=== PATIENT | female | born 1945 | race Caucasian/White ===

== ENCOUNTER 2017-09-01 13:42 | Outpatient (CLI) | payer MEDICARE, OTHER ==
--- NOTE | 2017-09-01 15:50 | XRAY Report ---
THREE VIEW BILATERAL HANDS: 09/01/2017 CLINICAL INDICATION: Bilateral hand numbness, osteoarthritis. FINDINGS: AP, lateral, and oblique views of the bilateral hands demonstrate mild osteoarthritic changes in the first carpometacarpal joints and interphalangeal joints. There is no evidence of acute fracture or dislocation. No radiopaque foreign body is seen in the soft tissues. IMPRESSION: MILD BILATERAL OSTEOARTHRITIS. TD: 09/01/2017 15:49
== END 2017-09-01 13:43 | disposition home or self-care (01) ==
LOC: DI.N 13:42
PROVIDERS: ATTEND Internal Medicine
DX: M19.042 Primary osteoarthritis, left hand (principal); M19.041 Primary osteoarthritis, right hand

== ENCOUNTER 2018-01-01 12:38 | Outpatient (CLI) | payer MEDICARE, OTHER ==
--- NOTE | 2018-01-03 05:14 | MRI Report ---
Procedure Date: 01/01/2018 Accession Number: [id number] / [id number] Procedure: MRI - Angio Brain W/O (MRA) CPT Code: FULL RESULT: EXAM MRA BRAIN EXAM DATE: 01/01/2018 01:11 PM. CLINICAL HISTORY: Peripheral vasculitis COMPARISON: None. TECHNIQUE: Multiplanar, multisequence MRA sequences of the brain were performed. Other: None. Post-processing: Multiplanar 3D MIP reconstructions. IV Contrast: None. FINDINGS: RIGHT Internal Carotid (ICA): Mild narrowing of right ophthalmic ICA segment. Otherwise unremarkable. Middle Cerebral (MCA): No aneurysm, stenosis or anomaly. Anterior Cerebral (ARACELI): Hypoplastic right A1 ARACELI segment. No aneurysm, stenosis or anomaly. Posterior Cerebral (AIR CONDITIONING INSULATION INSTALLER): No aneurysm, stenosis or anomaly. Posterior Communicating (P-COM): No aneurysm, stenosis or anomaly. Vertebral: No aneurysm, stenosis or anomaly in the visualized upper vertebral artery. LEFT Internal Carotid (ICA): Two bands of mild narrowing of the left cavernous ICA segment. Otherwise unremarkable. Middle Cerebral (MCA): No aneurysm, stenosis or anomaly. Anterior Cerebral (ARACELI): No aneurysm, stenosis or anomaly. Posterior Cerebral (AIR CONDITIONING INSULATION INSTALLER): No aneurysm, stenosis or anomaly. Posterior Communicating (P-COM): Not visualized. Vertebral: No aneurysm, stenosis or anomaly in the visualized upper vertebral artery. MIDLINE Anterior Communicating (A-COM): No aneurysm, stenosis or anomaly. Basilar Artery:No aneurysm, stenosis or anomaly. Other: None. IMPRESSION: 1. Mild narrowing of bilateral distal internal carotid arteries most likely representing atherosclerotic disease. No stenoses characteristic of vasculitis. No aneurysm. RADIA
== END 2018-01-01 12:39 | disposition home or self-care (01) ==
LOC: DI 12:38
PROVIDERS: ATTEND Psychiatry & Neurology Neurology
DX: I65.23 Occlusion and stenosis of bilateral carotid arteries (principal); H53.8 Other visual disturbances; M54.2 Cervicalgia; R51 Headache
CPT/HCPCS: 70544; 70551

== ENCOUNTER 2018-02-03 08:00 | Outpatient (CLI) | payer MEDICARE, OTHER | END 2018-02-03 08:01 | disposition home or self-care (01) | LOC: LAB.R 08:00 | PROVIDERS: ATTEND Internal Medicine | DX: R19.7 Diarrhea, unspecified (principal) | CPT/HCPCS: 81599; 82705; 83630; 87045; 87046; 87493 ==

== ENCOUNTER 2018-03-11 08:31 | Outpatient (CLI) | payer MEDICARE, OTHER ==
--- NOTE | 2018-04-04 13:23 | Mammography Report ---
Reason: ROUTINE MAMMO Procedure Date: 03/11/2018 Accession Number: [id number] / [id number] Procedure: MGN - Screening Mammo Dig Bilat CPT Code: FULL RESULT: EXAM: Screening Mammo Dig Bilat DATE: 03/11/2018 9:20 AM CLINICAL HISTORY: 72-year-old female with history of bilateral breast biopsies with benign results presents for screening mammogram TECHNIQUE: Bilateral CC and MLO views were obtained. COMPARISON: None are available at the time of interpretation. FINDINGS: The breasts demonstrate heterogeneously dense fibroglandular parenchyma bilaterally. Bilateral typically benign vascular calcifications and typically benign coarse calcifications are seen. No suspicious masses, clustered microcalcifications, or regions of architectural distortion are identified. IMPRESSION: Benign findings RECOMMENDATION: Routine annual screening unless otherwise clinically indicated. BIRADS CATEGORY 2: Benign findings STANDARD QUALIFYING STATEMENTS: 1. This examination was reviewed with the aid of Computer-Aided Detection (CAD). 2. A negative or benign imaging report should not delay biopsy if clinically suspicious findings are present. Consider surgical consultation if warrented. More than 5% of cancers are not identified by imaging. 3. Dense breasts may obscure an underlying neoplasm.
== END 2018-03-11 08:32 | disposition home or self-care (01) ==
LOC: DI.N 08:31
PROVIDERS: ATTEND Radiology Diagnostic Radiology
DX: Z12.31 Encounter for screening mammogram for malignant neoplasm of breast (principal)
CPT/HCPCS: 77067

== ENCOUNTER 2018-04-07 08:00 | Outpatient (CLI) | payer MEDICARE, OTHER ==
[2018-04-07 19:06] LABS: CREATININE 1.1 mg/dL (0.4-1.0)
== END 2018-04-07 08:01 ==
LOC: LAB.N 08:00
PROVIDERS: ATTEND Internal Medicine Gastroenterology
DX: K86.2 Cyst of pancreas (principal)
CPT/HCPCS: 36415; 82565; 84520

== ENCOUNTER 2018-04-12 18:04 | Emergency (ER) | payer MEDICARE, OTHER ==
--- NOTE | 2018-04-12 18:57 | XRAY Report ---
Reason: squeeze injury, sternum,rib, and back pain Procedure Date: 04/12/2018 Accession Number: [id number] / [id number] Procedure: XR - Chest 2 View X-Ray CPT Code: 99398 FULL RESULT: EXAM: CHEST RADIOGRAPHY EXAM DATE: 04/12/2018 06:33 PM. CLINICAL HISTORY: Squeeze injury, sternum,rib, and back pain. COMPARISON: None. TECHNIQUE: 2 views. FINDINGS: Lungs/Pleura: No focal opacities evident. No pleural effusion. No pneumothorax. Normal volumes. Mediastinum: Heart and mediastinal contours are unremarkable. Other: No fracture identified on chest radiograph. IMPRESSION: Negative. RADIA
--- NOTE | 2018-04-12 20:14 | ED Physician Documentation ---
PD HPI TRUNK INJURY - Stated complaint Stated Complaint: CHEST INJ - Chief complaint Chief Complaint: Trauma Ch/Bk - History obtained from History obtained from: Patient - History of Present Illness Location: Center chest Type of injury: Other (family member gave her a big, firm "amy hug" and she felt a pop and pain in sternal area. Has had persistent pain since then and has worsened today.) Timing - onset: How many days ago (3) Timing - duration: Days Timing - details: Abrupt onset, Still present (worse today) Quality: Pain Worsened by: Moving, Other (deep breathing). No: Palpating Associated symtptoms: No: Weakness, Numbness, Feel faint, Syncope Contributing factors: No: Anticoagulated Where injury occured: Home Similar symptoms before: Has not had sx before Recently seen: Not recently seen Review of Systems Constitutional: denies: Fever, Chills Nose: denies: Rhinorrhea / runny nose, Congestion Throat: denies: Sore throat Cardiac: reports: Chest pain / pressure. 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 HEENT: Cataracts, Other - Present Medications Home Medications: Ambulatory Orders Medication Instructions Recorded Confirmed Atenolol 1 tab PO DAILY 04/12/18 04/12/18 Duloxetine HCl 1 cap PO DAILY 04/12/18 04/12/18 Estrogens, Conjugated [Premarin] 0.45 mg PO DAILY 04/12/18 04/12/18 HYDROcod/ACETAM 5/325 [Omar 5/325] 1 tab PO Q6H PRN #15 tablet 04/12/18 Metformin HCl 1 tab PO BID 04/12/18 04/12/18 Naproxen 375 mg PO BID #20 tablet 04/12/18 Omeprazole 1 cap PO DAILY 04/12/18 04/12/18 - Allergies Allergies/Adverse Reactions: Allergies Allergy/AdvReac Type Severity Reaction Status Date / Time gabapentin Allergy Rash Verified 04/12/18 18:12 Iodinated Contrast- Oral and Allergy Anaphylaxis Verified 04/12/18 18:12 IV Dye - Social History Does the pt smoke?: No Smoking Status: Never smoker Does the pt drink ETOH?: Yes ETOH Use: Beer Does the pt have substance abuse?: No - Immunizations Immunizations are current?: Yes - POLST Patient has POLST: No PD ED PE NORMAL - Vitals Vital signs reviewed: Yes - General General: Alert and oriented X 3, No acute distress, Well developed/nourished - Neck Neck: Supple, no meningeal sign, No adenopathy - Cardiac Cardiac: RRR, No murmur - Respiratory Respiratory: Clear bilaterally, Other (some chest wall tenderness left parasternal area without crepitance nor deformity) - Abdomen Abdomen: Soft, Non tender - Back Back: No spinal TTP - Derm Derm: Normal color, Warm and dry - Extremities Extremities: No deformity, No tenderness to palpate, Normal ROM s pain, No edema, No calf tenderness / cord - Neuro Neuro: Alert and oriented X 3, No motor deficit, Normal speech Results - Vitals Vitals: Oxygen O2 Source Room air - Labs Labs: Laboratory Tests 04/12/18 20:48 POC Whole Bld Glucose 152 H - Rads (name of study) chest xray Radiology: Prelim report reviewed (normal) chest CT Radiology: Prelim report reviewed (no acute process/ injury) PD MEDICAL DECISION MAKING - ED course Complexity details: reviewed results (triage CXR done and was normal, but would not be sensitive enough for sternal area injuryies, so talked with patient and opted for CT scan to ensure no worse process. Allergy to dye so done without contrast, but should still show the processes, particularly osseous. ), re- evaluated patient, considered differential, d/w patient - Sepsis Event Vital Signs: Oxygen O2 Source Room air Departure - Departure Disposition: 01 Home, Self Care Clinical Impression: Contusion of chest wall Qualifiers: Encounter type: initial encounter Laterality: unspecified laterality Qualified Code(s): S20.219A - Contusion of unspecified front wall of thorax, initial encounter Condition: Stable Record reviewed to determine appropriate education?: Yes Instructions: ED Contusion Chest Wall Follow-Up: KASEY DÍAZ MD [Primary Care Provider] - Prescriptions: HYDROcod/ACETAM 5/325 [Omar 5/325] 1 tab PO Q6H PRN #15 tablet PRN Reason: Pain Naproxen 375 mg PO BID #20 tablet Comments: No obvious fractures nor internal injuries on the CT scan. Presume there was some strain or injury to the cartilage that connects the sternum to the ribs. This will likely improve over the next several days to week. Consider using any anti-inflammatories such as naproxen or ibuprofen twice daily and add Tylenol or hydrocodone if needed for pain. Recheck if not improved over the next several days to week. Discharge Date/Time: 04/12/18 22:44
[2018-04-12] MEDS ORDERED: NAPROXEN 250 MG TABLET PO STA (20:39)
[2018-04-12] MEDS ORDERED: HYDROcod/ACETAM 5/325 MG TABLET PO STA (20:39)
--- NOTE | 2018-04-12 21:35 | CT Report ---
Reason: bear hug and pain in sternal area Procedure Date: 04/12/2018 Accession Number: [id number] / [id number] Procedure: CT - Chest W/O CPT Code: FULL RESULT: EXAM: CT CHEST EXAM DATE: 04/12/2018 09:13 PM. CLINICAL HISTORY: Bear hug and pain in sternal area. COMPARISONS: None. TECHNIQUE: Routine helical CT imaging was performed through the chest. IV contrast: None. Reconstructions: Coronal and sagittal. In accordance with CT protocol optimization, one or more of the following dose reduction techniques were utilized for this exam: automated exposure control, adjustment of mA and/or KV based on patient size, or use of iterative reconstructive technique. FINDINGS: Lungs/Pleura: No nodules, bronchial thickening, consolidation, or edema. Pulmonary vasculature is normal. No pericardial or pleural effusion. No pneumothorax. Mediastinum: Normal. No adenopathy or masses. The heart and great vessels are normal. Bones: Old mild wedging mid third of the mildly kyphotic thoracic spine. Trabecular and cortical patterns are intact. Unremarkable. Visualized Abdomen: Unremarkable. Other: None. IMPRESSION: Normal chest CT. RADIA
[2018-04-12] MEDS ORDERED: HYDROcod/ACET 5/325 Prepack 4 PO STA (22:31)
[2018-04-12 22:44] VITALS: BP 136/70
== END 2018-04-12 22:44 | disposition home or self-care (01) ==
LOC: ED 18:04
DX: S20.219A Contusion of unspecified front wall of thorax, initial encounter (principal); X58.XXXA Exposure to other specified factors, initial encounter; Y93.89 Activity, other specified; E11.9 Type 2 diabetes mellitus without complications; Z79.84 Long term (current) use of oral hypoglycemic drugs
CPT/HCPCS: 71046; 71250; 99283; 99284; A9270

== ENCOUNTER 2018-08-11 13:46 | Outpatient (CLI) | payer MEDICARE, OTHER | END 2018-08-11 13:47 | disposition home or self-care (01) | LOC: EMS 13:46 | PROVIDERS: ATTEND Surgery | DX: R07.9 Chest pain, unspecified (principal); R10.9 Unspecified abdominal pain; R06.00 Dyspnea, unspecified | CPT/HCPCS: A0425; A0427 ==

== ENCOUNTER 2018-11-26 20:42 | Outpatient (CLI) | payer MEDICARE, OTHER | END 2018-11-26 20:43 | disposition short-term general hospital (02) | LOC: EMS 20:42 | PROVIDERS: ATTEND Surgery | DX: R00.2 Palpitations (principal) | CPT/HCPCS: A0425; A0427; A0888 ==

== ENCOUNTER 2018-11-29 08:35 | Outpatient (CLI) | payer MEDICARE, OTHER ==
--- NOTE | 2018-11-29 10:57 | Ultrasound Report ---
Reason: CHRONIC RLQ PAIN Procedure Date: 11/29/2018 Accession Number: [id number] / [id number] Procedure: US - Abdomen Limited CPT Code: FULL RESULT: EXAM: ABDOMEN ULTRASOUND LIMITED, RUQ EXAM DATE: 11/29/2018 09:38 AM. CLINICAL HISTORY: Chronic right lower quadrant pain. COMPARISON: None. TECHNIQUE: Real-time scanning was performed with static images obtained. FINDINGS: Liver: Normal in size and echotexture. 13.7 cm. Main portal vein flow: Hepatopetal. Gallbladder: Normal. No stones, wall thickening, or sonographic Walker's sign. Biliary System: CBD measures 7 mm. No intrahepatic or extrahepatic ductal dilatation. Other: Survey of the right kidney shows normal appearance. IMPRESSION: Normal. No cholelithiasis or cholecystitis. RADIA
== END 2018-11-29 08:36 | disposition home or self-care (01) ==
LOC: DI 08:35
PROVIDERS: ATTEND Internal Medicine
DX: R10.31 Right lower quadrant pain (principal); G89.29 Other chronic pain
CPT/HCPCS: 76705

== ENCOUNTER 2018-12-22 12:51 | Outpatient (CLI) | payer MEDICARE, OTHER ==
--- NOTE | 2018-12-23 09:37 | DEXA Report ---
Reason: POSTMENOPAUSAL Procedure Date: 12/22/2018 Accession Number: [id number] / [id number] Procedure: DEX - Dexa Spine and/or Hip CPT Code: FULL RESULT: EXAM: Dexa Spine and/or Hip DATE: 12/22/2018 1:27 PM CLINICAL HISTORY: POSTMENOPAUSAL TECHNIQUE: Dual energy x-ray absorptiometry (DXA) was performed on a [employer]ering [employer] System. Regions measured are the AP Spine, femoral neck, and if needed forearm. COMPARISON: None. In accordance with the International Society for Clinical Densitometry (ISCD) guidelines, data from previous exams may be reanalyzed using current recommendations and techniques. This is done to allow a more accurate basis for comparison with the current study. FINDINGS: The data for the lumbar spine is as follows: BMD (g/cm/cm) T-SCORE Z-SCORE REGION L1 0.972 -1.3 0.6 L2 0.995 -1.7 0.2 L3 1.029 -1.4 0.5 L4 1.161 -0.3 1.6 TOTAL 1.046 -1.1 0.8 NOTE: All evaluable vertebrae are used for classification The data for the hip is as follows: BMD (g/cm/cm) T-SCORE Z-SCORE REGION Neck 0.957 -0.6 1.3 TOTAL 0.858 -1.2 0.5 NOTE: The femoral neck or total proximal femur, whichever is lowest, is used for classification. IMPRESSION: THE WHO CLASSIFICATION BASED ON THE INTERNATIONAL REFERENCE STANDARD IS OSTEOPENIA. THE FRACTURE RISK IS INCREASED. RECOMMENDATION: Patients with diagnosis of osteoporosis or osteopenia should have regular bone mineral density assessment. For those eligible for Medicare, routine testing is allowed once every 2 years. Testing frequency can be increased for patients who have rapidly progressing disease or for those who are receiving medical therapy to restore bone mass. COMMENT: World Health Organization (WHO) definitions for osteoporosis and osteopenia: NORMAL BMD: T-score at -1.0 or higher, fracture risk is low OSTEOPENIA BMD: T-score between -1.0 and -2.5, fracture risk is increased. OSTEOPOROSIS BMD: T-score at -2.5 or lower, fracture risk is high. National Osteoporosis Foundation recommends: 1. Obtain adequate dietary calcium (at least 1200 mg per day) and vitamin D (400-800 international units per day). 2. Participate, as appropriate, in regular weightbearing and muscle-strengthening exercise. 3. Avoid tobacco use and reduce alcohol and caffeine intake. 4. For more detailed information see the website at www.NOF.org.
== END 2018-12-22 12:52 | disposition home or self-care (01) ==
LOC: DI 12:51
PROVIDERS: ATTEND Internal Medicine
DX: M85.89 Other specified disorders of bone density and structure, multiple sites (principal)
CPT/HCPCS: 77080

== ENCOUNTER 2019-03-09 10:12 | Outpatient (CLI) | payer MEDICARE, OTHER ==
--- NOTE | 2019-03-09 12:13 | Mammography Report ---
Reason: RIGHT SIDED BREAST AND AXILLA PAIN Procedure Date: 03/09/2019 Accession Number: [id number] / [id number] Procedure: GENE - Diagnostic Dig Bilat CPT Code: FULL RESULT: EXAM: Diagnostic Dig Bilat DATE: 03/09/2019 11:10 AM CLINICAL HISTORY: Focal right breast pain lateral breast as well as the axillary tail. No reported personal or family history of breast cancer. TECHNIQUE: (B) - Bilateral CC and MLO views were obtained. Additional right 90 degree lateral 2-D/3-D. CC and ML Cone magnification right side. Targeted real-time ultrasound sites of pain right breast. COMPARISON: 03/11/2018. PARENCHYMAL PATTERN: (D) - The breasts demonstrate heterogeneously dense fibroglandular parenchyma bilaterally. FINDINGS: Right breast: No mammographic findings of concern at sites of focal pain marked with skin markers along the lateral mid breast and axillary tail. 3 cm grouping of mixed punctate and amorphous and mildly pleomorphic calcifications in the 11:30 o'clock breast 7 cm from the nipple. No suspicious masses or areas of distortion. Targeted ultrasound at sites of patient's symptoms are performed in wide areas at each site. Only normal tissues are noted. 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 Left breast: There are no suspicious masses, calcifications, or areas of distortion. IMPRESSION: Right breast: 1. No imaging findings of concern at sites of focal pain per patient. Negative. Clinical follow-up for symptoms recommended. 2. 3 cm grouping of indeterminate morphology calcifications in the 11:30 o'clock breast. Suspicious findings. BI-RADS category 4. Stereotactic breast biopsy with marker placement is recommended. Biopsy scheduling was facilitated the time of this imaging appointment. Left breast: Negative. BI-RADS Category 1. Recommend annual screening mammography. RECOMMENDATION: (BIOPSY) - right breast BI-RADS CATEGORY: (4) - Suspicious. STANDARD QUALIFYING STATEMENTS: 1. This examination was not reviewed with the aid of Computer-Aided Detection (CAD). 2. A negative or benign imaging report should not preclude biopsy if clinically suspicious findings are present. 3. Dense breasts may obscure an underlying neoplasm. 4. This examination was reviewed with the aid of 3D breast imaging (tomosynthesis).
== END 2019-03-09 10:13 | disposition home or self-care (01) ==
LOC: DI 10:12
PROVIDERS: ATTEND Family Medicine
DX: N64.4 Mastodynia (principal); M79.621 Pain in right upper arm; R06.02 Shortness of breath
CPT/HCPCS: 71046; 76642; 77066

== ENCOUNTER 2019-03-09 10:13 | Outpatient (CLI) | payer MEDICARE, OTHER ==
--- NOTE | 2019-03-10 12:38 | XRAY Report ---
Reason: SHORTNESS OF BREATH Procedure Date: 03/09/2019 Accession Number: [id number] / [id number] Procedure: XR - Chest 2 View X-Ray CPT Code: 54425 FULL RESULT: EXAM: CHEST RADIOGRAPHY EXAM DATE: 03/09/2019 10:28 AM. CLINICAL HISTORY: Persistent shortness of breath for 2 months. COMPARISON: CHEST 2 VIEW 04/12/2018 6:21 PM. TECHNIQUE: 2 views. FINDINGS: Lungs/Pleura: No focal opacities evident. No pleural effusion. No pneumothorax. Normal volumes. Mediastinum: Heart and mediastinal contours are unremarkable. Other: Stable thoracic dextrocurvature and rotatory lumbar levocurvature. Stable degenerative changes in the spine and shoulders. IMPRESSION: 1. No radiographic evidence of acute cardiopulmonary disease. 2. Other stable chronic degenerative changes. RADIA
== END 2019-03-09 10:14 | disposition home or self-care (01) ==
LOC: DI 10:13
PROVIDERS: ATTEND Family Medicine
DX: R06.02 Shortness of breath (principal)
CPT/HCPCS: 71046

== ENCOUNTER 2019-03-17 09:22 | Outpatient (CLI) | payer MEDICARE, OTHER ==
[2019-03-17] MEDS ORDERED: BUPIVACAINE 0.5%-EPI 1:200000 PF 10 ML VIAL ONE (09:41)
[2019-03-17] MEDS ORDERED: BUFFERED LIDOCAINE 10 ML SYRINGE ONE (09:41)
[2019-03-17] MEDS ORDERED: BUFFERED LIDOCAINE 10 ML SYRINGE IU ONE (11:12)
--- NOTE | 2019-03-17 13:32 | Mammography Report ---
Reason: ABN MAMMO - RT BREAST CALCS Procedure Date: 03/17/2019 Accession Number: [id number] / [id number] Procedure: GENE - Stereotactic Core BX RT CPT Code: FULL RESULT: EXAM: Stereotactic Core BX RT DATE: 03/17/2019 11:04 AM CLINICAL HISTORY: ABN MAMMO - RT BREAST CALCS COMPARISON: 03/09/2019 10/09/2017. CLINICAL DATA: Target right breast grouping of calcification measuring up to 3 cm in the 11 o'clock axis of the right breast. Informed consent was obtained. The patient was positioned in the mammography machine with biopsy attachment. Targeting imaging was obtained and the lesion was selected. The breast was approached from the cranial aspect. Using standard aseptic technique, 1% buffered lidocaine was injected into the breasts for local anesthesia. A small wilmar was made in the skin with a #11 blade. A 9-gauge vacuum-assisted device was advanced into the breasts towards the target and confirmatory imaging was obtained to verify targeting and 12 specimens were obtained. Specimen radiography was performed which demonstrated the presence of calcifications in the sample. A biopsy marker clip was then placed into the biopsy cavity. The biopsy device was subsequently removed from the breast. Hemostasis was achieved. Follow-up mammography was then performed to verify biopsy targeting and clip placement. The mammography showed good clip placement . The wound was dressed and ice applied. The patient was observed for approximately 15 minutes, then discharged from the diagnostic imaging Department in stable condition following instructions on wound care and obtaining biopsy results. The tissue was sent for histologic analysis. IMPRESSION: Stereotactic right breast biopsy. RADIA
== END 2019-03-17 09:23 | disposition home or self-care (01) ==
LOC: DI 09:22
PROVIDERS: ATTEND Family Medicine
DX: R92.0 Mammographic microcalcification found on diagnostic imaging of breast (principal); N60.11 Diffuse cystic mastopathy of right breast
CPT/HCPCS: 19081

== ENCOUNTER 2019-04-11 13:32 | Outpatient (CLI) | payer MEDICARE, OTHER | END 2019-04-11 13:33 | disposition short-term general hospital (02) | LOC: EMS 13:32 | PROVIDERS: ATTEND Surgery | DX: R07.89 Other chest pain (principal); R06.00 Dyspnea, unspecified | CPT/HCPCS: A0425; A0427 ==

== ENCOUNTER 2019-04-14 23:33 | Outpatient (CLI) | payer MEDICARE, OTHER | END 2019-04-14 23:34 | disposition short-term general hospital (02) | LOC: EMS 23:33 | PROVIDERS: ATTEND Surgery | DX: R07.89 Other chest pain (principal) | CPT/HCPCS: A0425; A0427 ==

== ENCOUNTER 2019-05-04 08:00 | Outpatient (CLI) | payer MEDICARE, OTHER ==
[2019-05-04 19:18] LABS: HGB - HEMOGLOBIN 11.3 g/dL (12.0-16.0); MEAN CORPUSCULAR HEMOGLOBIN 27.7 pg (27.0-31.0); MEAN CORPUSCULAR HGB CONC 30.9 g/dL (32.0-36.0); MEAN CORPUSCULAR VOLUME 89.7 fL (81.0-99.0); MEAN PLATELET VOLUME 10.5 fL (7.9-10.8); RED BLOOD COUNT 4.08 10^6/uL (4.20-5.40); RED CELL DISTRIBUTION WIDTH 14.4 % (12.0-15.0); WHITE BLOOD COUNT 5.8 x10^3/uL (4.8-10.8)
[2019-05-04 19:26] LABS: CALCIUM 9.9 mg/dL (8.5-10.3); CREATININE 1.5 mg/dL (0.4-1.0)
[2019-05-04 19:29] LABS: CREATININE,URINE 99.5 mg/dL; PROTEIN/CREATININE RATIO,URINE 0.1 (<=0.2)
== END 2019-05-04 23:59 | disposition home or self-care (01) ==
LOC: LAB.N 08:00
PROVIDERS: ATTEND Internal Medicine Nephrology
DX: N05.9 Unspecified nephritic syndrome with unspecified morphologic changes (principal); D63.1 Anemia in chronic kidney disease; D70.9 Neutropenia, unspecified; R80.9 Proteinuria, unspecified
CPT/HCPCS: 36415; 80048; 82570; 84156; 85027

== ENCOUNTER 2019-05-16 13:16 | Emergency (ER) | payer MEDICARE, OTHER ==
--- NOTE | 2019-05-16 14:09 | XRAY Report ---
Reason: cp, sob. Procedure Date: 05/16/2019 Accession Number: [id number] / [id number] Procedure: XR - Chest 1 View X-Ray CPT Code: 14008 FULL RESULT: EXAM: CHEST RADIOGRAPHY EXAM DATE: 05/16/2019 01:59 PM. CLINICAL HISTORY: Cp, sob. COMPARISON: CHEST 2 VIEW 03/09/2019 10:19 AM. TECHNIQUE: 1 view. FINDINGS: Lungs/Pleura: No focal opacities evident. No pleural effusion. No pneumothorax. Mediastinum: Within exam limitations, the cardiomediastinal contour is normal. Other: S-shaped thoracolumbar scoliosis. IMPRESSION: Clear lungs. No acute findings. RADIA
[2019-05-16 14:20] LABS: BASOPHILS # (AUTO) 0.1 10^3/uL (0.0-0.1); BASOPHILS % (AUTO) 0.7 %; EOSINOPHILS # (AUTO) 0.1 10^3/uL (0.0-0.7); HGB - HEMOGLOBIN 12.1 g/dL (12.0-16.0); LYMPHOCYTES # (AUTO) 1.6 10^3/uL (1.5-3.5); MEAN CORPUSCULAR HEMOGLOBIN 27.2 pg (27.0-31.0); MEAN CORPUSCULAR HGB CONC 31.8 g/dL (32.0-36.0); MEAN CORPUSCULAR VOLUME 85.4 fL (81.0-99.0); MEAN PLATELET VOLUME 9.9 fL (7.9-10.8); MONOCYTES # (AUTO) 0.4 10^3/uL (0.0-1.0); NEUTROPHILS # (AUTO) 5.1 10^3/uL (1.5-6.6); PLT - PLATELET COUNT 190 10^3/uL (130-450); RED BLOOD COUNT 4.45 10^6/uL (4.20-5.40); RED CELL DISTRIBUTION WIDTH 14.6 % (12.0-15.0); WHITE BLOOD COUNT 7.2 x10^3/uL (4.8-10.8)
[2019-05-16 14:34] LABS: ALBUMIN 4.6 g/dL (3.2-5.5); ALBUMIN/GLOBULIN RATIO 1.4 (1.0-2.2); BILIRUBIN,TOTAL 0.8 mg/dL (0.2-1.0); CALCIUM 10.6 mg/dL (8.5-10.3); CREATININE 1.6 mg/dL (0.4-1.0)
[2019-05-16] MEDS ORDERED: SODIUM CHLORIDE 0.9% 1,000 ML IV ONE (15:34)
--- NOTE | 2019-05-16 15:35 | ED Physician Documentation ---
History of Present Illness - Stated complaint Stated Complaint: CP/PALPITATIONS - Chief complaint Chief Complaint: Cardiac - History obtained from History obtained from: Patient, Family - History of Present Illness Timing: Today - Additonal information Additional information: 73-year-old female with a recent history of a stress cardiomyopathy has developed some anxiety and she is feeling lightheaded and dizzy. She was going to see her primary care doctor and he recognized her as being quite anxious and was reluctant to pursue this diagnosis as he was unable to confirm an acute ongoing process. He sent her here to the emergency department for evaluation. The patient indicates that she has been hospitalized at [facility] had an angiogram done and had a stress-induced heart attack. She states that she has since recovered and she was told that she was anemic and took some iron. She appears quite anxious still. Review of Systems Constitutional: denies: Fever Eyes: denies: Decreased vision Ears: denies: Ear pain Nose: denies: Rhinorrhea / runny nose, Congestion Throat: denies: Sore throat Cardiac: reports: Palpitations. 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 HEENT: Cataracts, Other - Present Medications Home Medications: Ambulatory Orders Medication Instructions Recorded Confirmed Atenolol 1 tab PO DAILY 04/12/18 04/12/18 Duloxetine HCl 1 cap PO DAILY 04/12/18 04/12/18 Estrogens, Conjugated [Premarin] 0.45 mg PO DAILY 04/12/18 04/12/18 HYDROcod/ACETAM 5/325 [[place] 5/325] 1 tab PO Q6H PRN #15 tablet 04/12/18 Metformin HCl 1 tab PO BID 04/12/18 04/12/18 Naproxen 375 mg PO BID #20 tablet 04/12/18 Omeprazole 1 cap PO DAILY 04/12/18 04/12/18 - Allergies Allergies/Adverse Reactions: Allergies Allergy/AdvReac Type Severity Reaction Status Date / Time gabapentin Allergy Rash Verified 04/12/18 18:12 Iodinated Contrast Media Allergy Anaphylaxis Verified 04/12/18 18:12 [Iodinated Contrast- Oral and IV Dye] - Social History Does the pt smoke?: No Smoking Status: Never smoker Does the pt drink ETOH?: Yes Does the pt have substance abuse?: No - Immunizations Immunizations are current?: Yes - POLST Patient has POLST: No PD ED PE NORMAL - Vitals Vital signs reviewed: Yes (hypertensive mild ) - General General: Alert and oriented X 3, Well developed/nourished, Other (appears anxious and is breathing shallow ) - HEENT HEENT: Atraumatic, PERRL, EOMI, Ears normal, Other (dry mucous membranes) - Neck Neck: Supple, no meningeal sign, No bony TTP - Cardiac Cardiac: RRR, No murmur - Respiratory Respiratory: No respiratory distress, Clear bilaterally, Other (anterior chest wall tenderness) - Abdomen Abdomen: Normal bowel sounds, Soft, Non tender, Non distended - Back Back: No CVA TTP, No spinal TTP - Derm Derm: Normal color, Warm and dry, No rash - Extremities Extremities: No deformity, No edema - Neuro Neuro: Alert and oriented 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, 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, No motor deficit, No sensory deficit, Normal speech Eye Opening: Spontaneous Motor: Obeys Commands Verbal: Oriented GCS Score: 15 - Psych Psych: Normal affect, Other (mood is anxious) Results - Vitals Vitals: Vital Signs - 24 hr 05/16/19 05/16/19 05/16/19 13:34 14:52 16:13 Temperature 36.7 C 36.4 C L Heart Rate 71 73 57 L Respiratory 18 18 16 Rate Blood Pressure 124/95 H 154/66 H 139/53 H O2 Saturation 98 99 05/16/19 05/16/19 16:48 17:35 Temperature Heart Rate 58 L 61 Respiratory 16 20 Rate Blood Pressure 144/55 H 134/55 H O2 Saturation 100 99 Oxygen O2 Source Room air - EKG (time done) 1330 Rate: Rate (enter#) (64) Rhythm: NSR Intervals: LBBB, Other (short [place]) Compare to prior EKG: Old EKG unavailable (There is report of prior LBBB) Computer interpretation: Agree with computer - Labs Labs: Laboratory Tests 05/16/19 05/16/19 05/16/19 14:14 14:14 14:14 WBC 7.2 RBC 4.45 Hgb 12.1 Hct 38.0 MCV 85.4 MCH 27.2 MCHC 31.8 L RDW 14.6 Plt Count 190 MPV 9.9 Neut # (Auto) 5.1 Lymph # (Auto) 1.6 [place] # (Auto) 0.4 Eos # (Auto) 0.1 Baso # (Auto) 0.1 Absolute Nucleated RBC 0.00 Nucleated RBC % 0.0 Sodium 138 Potassium 4.0 Chloride 102 Carbon Dioxide 23 Anion Gap 13.0 BUN 26 H Creatinine 1.6 H Estimated GFR (MDRD) 32 L Glucose 86 Calcium 10.6 H Total Bilirubin 0.8 AST 26 ALT 12 Alkaline Phosphatase 71 Troponin I High Sens 19.5 H* Total Protein 8.0 Albumin 4.6 Globulin 3.4 Albumin/Globulin Ratio 1.4 Lipase 80 H Urine Color Urine Clarity Urine pH Ur Specific [place] Urine Protein Urine Glucose (UA) Urine Ketones Urine Occult Blood Urine Nitrite Urine Bilirubin Urine Urobilinogen Ur Leukocyte Esterase Ur Microscopic Review Urine Culture Comments 05/16/19 05/16/19 16:11 17:00 WBC RBC Hgb Hct MCV MCH MCHC RDW Plt Count MPV Neut # (Auto) Lymph # (Auto) [place] # (Auto) Eos # (Auto) Baso # (Auto) Absolute Nucleated RBC Nucleated RBC % Sodium Potassium Chloride Carbon Dioxide Anion Gap BUN Creatinine Estimated GFR (MDRD) Glucose Calcium Total Bilirubin AST ALT Alkaline Phosphatase Troponin I High Sens 19.3 H* Total Protein Albumin Globulin Albumin/Globulin Ratio Lipase Urine Color YELLOW Urine Clarity CLEAR Urine pH 5.5 Ur Specific [place] 1.010 Urine Protein NEGATIVE Urine Glucose (UA) NEGATIVE Urine Ketones NEGATIVE Urine Occult Blood NEGATIVE Urine Nitrite NEGATIVE Urine Bilirubin NEGATIVE Urine Urobilinogen 0.2 (NORMAL) Ur Leukocyte Esterase NEGATIVE Ur Microscopic Review NOT INDICATED Urine Culture Comments NOT INDICATED - Rads (name of study) chest Radiology: Prelim report reviewed (Imression: Clear lungs. No acute findings.), EMP read indepedently, See rad report Procedures - IVC sono (time) 1530 Bedside IVC sono: IVC measures (cm) (1.02), IVC collapsed c insp (cm) (complete), Dehydration (est 1-2 liter deficit) PD MEDICAL DECISION MAKING - ED course Complexity details: reviewed old records, reviewed results, re-evaluated patient, considered differential, d/w patient, d/w family ED course: 73-year-old female appears anxious on arrival to the emergency department and she is found to be dehydrated and is provided saline and improves. She asked for explanation of what happened to her when she was in the hospital at [facility] and I am able to get her cath report and review with her the findings. She is grateful for that portion. Today her anemia appears compensated. I did discuss her case with her primary care doctor Dr. Huff and he will follow-up with the patient. Departure - Departure Disposition: 01 Home, Self Care Clinical Impression: Dehydration Condition: Stable Instructions: ED Dehydration Follow-Up: Wilber Huff DO [Primary Care Provider] - Discharge Date/Time: 05/16/19 18:04
[2019-05-16 16:17] LABS: BILIRUBIN,URINE NEGATIVE (NEGATIVE); GLUCOSE, URINE (UA) NEGATIVE (NEGATIVE); KETONES,URINE (UA) NEGATIVE (NEGATIVE); LEUKOCYTE ESTERASE, URINE NEGATIVE (NEGATIVE); NITRITE,URINE NEGATIVE (NEGATIVE); OCCULT BLOOD,URINE NEGATIVE (NEGATIVE); PH,URINE 5.5 PH (5.0-7.5); PROTEIN,URINE NEGATIVE (NEGATIVE); UROBILINOGEN,URINE 0.2 (NORMAL) E.U./dL (NORMAL)
[2019-05-16 16:18] LABS: CLARITY,URINE CLEAR (CLEAR)
[2019-05-16 17:36] VITALS: BP 134/55
== END 2019-05-16 18:04 | disposition home or self-care (01) ==
LOC: ED 13:16
DX: E86.0 Dehydration (principal); F41.9 Anxiety disorder, unspecified; I44.7 Left bundle-branch block, unspecified; Z86.79 Personal history of other diseases of the circulatory system; D64.9 Anemia, unspecified; E11.9 Type 2 diabetes mellitus without complications; Z79.84 Long term (current) use of oral hypoglycemic drugs
CPT/HCPCS: 36415; 71045; 80053; 81001; 81003; 83690; 84484; 85025; 87086; 93005; 96360; 99283

== ENCOUNTER 2019-05-22 12:35 | Outpatient (CLI) | payer MEDICARE, OTHER ==
--- NOTE | 2019-05-23 13:32 | XRAY Report ---
Reason: COMPLICATION OF IMPLANTED DEVICE Procedure Date: 05/22/2019 Accession Number: [id number] / [id number] Procedure: XRN - Sacrum/Coccyx CPT Code: Final Report FULL RESULT: EXAM: SACRUM AND COCCYX RADIOGRAPHY EXAM DATE: 05/22/2019 01:03 PM. HISTORY: Complication of implanted device. History of stimulator device placement with specific request to compare to intraoperative sacral radiographic images from the day of electrode implantation. COMPARISONS: None are available at this institution. TECHNIQUE: 2 views. FINDINGS: Alignment: There is apparent qualitative osteopenia of the lower sacrum and coccyx as seen on frontal projections which is felt to potentially be due to technique. This limits sensitivity for osseous abnormalities, no definite abnormality seen. Bones: Normal. No fracture or bone lesion. Joints: Normal. The sacroiliac joints and visualized hips are within normal limits. Soft Tissues: Electrode stimulator device is seen with the stimulator pocket projecting over the posterior soft tissues at the level of the left iliac gluteal region. The lead then takes a transverse approach towards midline and is seen descending right of midline posteriorly to the sacrum and taking an anterior approach with the electrode itself seen right of the lower sacrum projecting over the expected right greater sciatic foramen. IMPRESSION: Stimulator and electrode in positions near the right sciatic foramen as described. Requested comparison cannot be made as the compression images are not available for review. If these images are made available, an addendum can be issued. RADIA
== END 2019-05-22 12:36 | disposition home or self-care (01) ==
LOC: DI.N 12:35
PROVIDERS: ATTEND Obstetrics & Gynecology Female Pelvic Medicine and Reconstructive Surgery
DX: T85.9XXA Unspecified complication of internal prosthetic device, implant and graft, initial encounter (principal)
CPT/HCPCS: 72220

== ENCOUNTER 2019-07-25 15:39 | Outpatient (CLI) | payer MEDICARE, OTHER ==
--- NOTE | 2019-07-26 12:51 | CT Report ---
Reason: NEW DAILY PERSISTENT HEADACHE Procedure Date: 07/25/2019 Accession Number: [id number] / [id number] Procedure: CT - HEAD WO CPT Code: Final Report FULL RESULT: EXAM: CT HEAD EXAM DATE: 07/25/2019 04:09 PM. CLINICAL HISTORY: NEW DAILY PERSISTENT HEADACHE. COMPARISON: BRAIN ANGIO W/O 01/01/2018 1:00 PM. TECHNIQUE: Multiaxial CT images were obtained from the foramen magnum to the vertex. Reformats: Sagittal and coronal. IV contrast: None. In accordance with CT protocol optimization, one or more of the following dose reduction techniques were utilized for this exam: automated exposure control, adjustment of mA and/or KV based on patient size, or use of iterative reconstructive technique. FINDINGS: Parenchyma: No intraparenchymal hemorrhage. No evidence of mass, midline shift, or CT findings of infarction. Moise-white differentiation is distinct. Extraaxial Spaces: Normal for age. No subdural or epidural collections identified. Ventricles: Normal in size and position. Sinuses and Orbits: Imaged paranasal sinuses, orbits, and mastoids show no significant abnormality. Bones: No evidence of fracture or calvarial defect. Other: None. IMPRESSION: No acute intracranial abnormality. RADIA
== END 2019-07-25 15:40 | disposition home or self-care (01) ==
LOC: DI 15:39
PROVIDERS: ATTEND Family Medicine
DX: G44.52 New daily persistent headache (NDPH) (principal)
CPT/HCPCS: 70450

== ENCOUNTER 2019-08-03 11:40 | Outpatient (CLI) | payer MEDICARE, OTHER | END 2019-08-03 11:41 | disposition short-term general hospital (02) | LOC: EMS 11:40 | PROVIDERS: ATTEND Surgery | DX: R07.9 Chest pain, unspecified (principal); R06.02 Shortness of breath; R61 Generalized hyperhidrosis | CPT/HCPCS: A0425; A0433; A0888 ==

== ENCOUNTER 2019-08-22 15:09 | Outpatient (CLI) | payer MEDICARE, OTHER ==
--- NOTE | 2019-08-23 06:32 | XRAY Report ---
Reason: NECK PAIN Procedure Date: 08/22/2019 Accession Number: [id number] / [id number] Procedure: XRN - Cervical Spine 2 View CPT Code: Final Report FULL RESULT: EXAM: CERVICAL SPINE RADIOGRAPHY EXAM DATE: 08/22/2019 03:28 PM. CLINICAL HISTORY: NECK PAIN. COMPARISONS: None. TECHNIQUE: 3 views. FINDINGS: Alignment: Grade 1 anterolisthesis at C3-C4. Grade 1 retrolisthesis at C5-C6. No scoliosis. Bones: The cervical vertebral bodies and posterior elements are well visualized from the skull base through C7-T1. Areas of sclerosis are seen in the inferior endplate of C5. Anterior and posterior osteophytes are seen at multiple levels. There is narrowing of the predental interval. Disks: Disk space narrowing at C4-C5, C5-C6, C6-C7, and C7-T1, greatest at C5-C6. Facets: Multilevel facet arthropathy, greatest at C2-C3 where there is partial fusion of the facets. Soft Tissues: Normal. No prevertebral soft tissue swelling. The visualized lung apices are clear. IMPRESSION: Multilevel cervical spine degenerative disk disease and facet arthropathy. Grade 1 anterolisthesis at C3-C4. Grade 1 retrolisthesis at C5-C6. RADIA
== END 2019-08-22 15:10 | disposition home or self-care (01) ==
LOC: DI.N 15:09
PROVIDERS: ATTEND Family Medicine
DX: M50.321 Other cervical disc degeneration at C4-C5 level (principal); M47.812 Spondylosis without myelopathy or radiculopathy, cervical region; M43.12 Spondylolisthesis, cervical region
CPT/HCPCS: 72040

== ENCOUNTER 2019-08-30 16:32 | Outpatient (CLI) | payer MEDICARE, OTHER | END 2019-08-30 16:33 | disposition home or self-care (01) | LOC: RT 16:32 | PROVIDERS: ATTEND Internal Medicine Cardiovascular Disease | DX: R00.2 Palpitations (principal) | CPT/HCPCS: 93005 ==

== ENCOUNTER 2020-01-05 12:48 | Outpatient (CLI) | payer MEDICARE, OTHER ==
--- NOTE | 2020-01-08 12:27 | Mammography Report ---
UNILATERAL RIGHT DIGITAL DIAGNOSTIC MAMMOGRAM 3D/2D: 01/05/2020 CLINICAL: 6 month follow-up biopsy. Comparison is made to exams dated: 03/17/2019 mammogram, 03/09/2019 mammogram, and 03/11/2018 [facility]. The tissue of right breast is heterogeneously dense. This may lowe r the sensitivity of mammography. There are biopsy-proven benign, loosely grouped calcifications in the right breast at 12 o'clock midd le depth. There is a biopsy clip associated with the calcifications. N underlying mass lesion. No other significant masses or calcifications are seen in the breast. IMPRESSION: There is no new mammographic evidence of malignancy. Return to annual mammogram screening schedule is recommended. Findings and recommendations were conveyed to the patient at time of exam. This exam was interpreted at Station ID: [id number]. NOTE: For mammograms, a report in lay terms will be sent to the patient. Approximately 15% of breast malignancies will not be visualized mammographically. In the management of a palpable breast mass, a negative mammogram must not discourage biopsy of a clinically suspicious lesion. Electronically Signed By: Evita hess/:01/05/2020 13:43:18 ACR BI-RADS Category 2: Benign Finding(s) 3342F PARENCHYMAL PATTERN: (D) - The breast(s) demonstrate(s) heterogeneously dense fibroglandular ramesh cesar. BI-RADS CATEGORY: (2) - 2 RECOMMENDATION: (ANNUAL) - Recommend routine annual screening mammography. [id number] return to screening LATERALITY: (B)
== END 2020-01-05 12:49 | disposition home or self-care (01) ==
LOC: DI 12:48
PROVIDERS: ATTEND Family Medicine
DX: D24.1 Benign neoplasm of right breast (principal)

== ENCOUNTER 2020-10-17 12:03 | Outpatient (CLI) | payer MEDICARE, OTHER ==
--- NOTE | 2020-10-18 10:50 | Mammography Report ---
BILATERAL DIGITAL SCREENING MAMMOGRAM 3D/2D: 10/17/2020 CLINICAL: Routine screening. Comparison is made to exams dated: 01/05/2020 mammogram, 03/17/2019 mammogram, 03/09/2019 mammogram, an d 03/11/[address] [facility]. The tissue of both breasts is heterogeneously dense. This may lower the sensitivity of mammography. There is a biopsy clip in the right breast. No significant masses, calcifications, or other findings are seen in either breast. There has been no significant interval change. IMPRESSION: NEGATIVE There is no mammographic evidence of malignancy. A 1 year screening mammogram is recommended. This exam was interpreted at Station ID: [id number]. NOTE: For mammograms, a report in lay terms will be sent to the patient. Approximately 15% of breast malignancies will not be visualized mammographically. In the management of a palpable breast mass, a negative mammogram must not discourage biopsy of a clinically suspicious lesion. Electronically Signed By: Carlin haque/juan jose:10/17/2020 13:12:18 ACR BI-RADS Category 1: Negative 3341F PARENCHYMAL PATTERN: (D) - The breast(s) demonstrate(s) heterogeneously dense fibroglandular parelton cesar. BI-RADS CATEGORY: (1) - 1 RECOMMENDATION: (ANNUAL) - Recommend routine annual screening mammography. [id number] 1 year screening LATERALITY: (B)
== END 2020-10-17 12:04 | disposition home or self-care (01) ==
LOC: DI.N 12:03
DX: Z12.31 Encounter for screening mammogram for malignant neoplasm of breast (principal)

== ENCOUNTER 2020-10-31 13:55 | Outpatient (CLI) | payer MEDICARE, OTHER | END 2020-10-31 13:56 | disposition home or self-care (01) | LOC: NS 13:55 | PROVIDERS: ATTEND Family Medicine | DX: Z71.3 Dietary counseling and surveillance (principal); E11.9 Type 2 diabetes mellitus without complications | CPT/HCPCS: 97802 ==

== ENCOUNTER 2020-11-21 08:00 | Outpatient (CLI) | payer MEDICARE, OTHER ==
[2020-11-21 19:22] LABS: CALCIUM 9.8 mg/dL (8.5-10.3); CREATININE 1.4 mg/dL (0.4-1.0); CREATININE,URINE 114.7 mg/dL; MICROALBUM/CREATININE RATIO,UR 4.4 ug/mg (<30.0); MICROALBUMIN,URINE 0.5 mg/dL (0-300.0); POTASSIUM 4.4 mmol/L (3.5-5.0)
[2020-11-21 19:24] LABS: ABSOLUTE RETICS # AUTO 0.054 10^6/uL (0.020-0.110); BASOPHILS # (AUTO) 0.1 10^3/uL (0.0-0.1); EOSINOPHILS # (AUTO) 0.2 10^3/uL (0.0-0.7); EOSINOPHILS % (AUTO) 2.6 %; HCT - HEMATOCRIT 39.7 % (37.0-47.0); HGB - HEMOGLOBIN 12.2 g/dL (12.0-16.0); LYMPHOCYTES # (AUTO) 1.7 10^3/uL (1.5-3.5); LYMPHOCYTES % (AUTO) 28.3 %; MEAN CORPUSCULAR HEMOGLOBIN 27.9 pg (27.0-31.0); MEAN CORPUSCULAR HGB CONC 30.7 g/dL (32.0-36.0); MEAN CORPUSCULAR VOLUME 90.6 fL (81.0-99.0); MEAN PLATELET VOLUME 10.7 fL (7.9-10.8); MONOCYTES # (AUTO) 0.4 10^3/uL (0.0-1.0); MONOCYTES % (AUTO) 6.3 %; NEUTROPHILS # (AUTO) 3.7 10^3/uL (1.5-6.6); NEUTROPHILS % (AUTO) 61.6 %; PLT - PLATELET COUNT 224 10^3/uL (130-450); RED BLOOD COUNT 4.38 10^6/uL (4.20-5.40); RED CELL DISTRIBUTION WIDTH 15.5 % (12.0-15.0); RETICULOCYTE COUNT % (AUTO) 1.23 % (0.5-2.3); WHITE BLOOD COUNT 6.1 x10^3/uL (4.8-10.8)
[2020-11-21 19:42] LABS: FOLATE 18.72 ng/mL ({null, 5.90 - >24.8})
[2020-11-21 20:24] LABS: ESTIMATED AVERAGE GLUCOSE 197 mg/dL (70-100); HEMOGLOBIN A1c% 8.5 % (4.27-6.07)
== END 2020-11-21 23:59 | disposition home or self-care (01) ==
LOC: LAB.WCP 08:00
PROVIDERS: ATTEND Family Medicine
DX: E11.9 Type 2 diabetes mellitus without complications (principal); D50.9 Iron deficiency anemia, unspecified
CPT/HCPCS: 36415; 80048; 82043; 82570; 82607; 82728; 82746; 83036; 83540; 84466; 85025; 85045

== ENCOUNTER 2020-12-10 17:07 | Emergency (ER) | payer MEDICARE, OTHER ==
[2020-12-10 17:33] LABS: BILIRUBIN,URINE NEGATIVE (NEGATIVE); GLUCOSE, URINE (UA) NEGATIVE (NEGATIVE); KETONES,URINE (UA) NEGATIVE (NEGATIVE); LEUKOCYTE ESTERASE, URINE NEGATIVE (NEGATIVE); NITRITE,URINE NEGATIVE (NEGATIVE); OCCULT BLOOD,URINE NEGATIVE (NEGATIVE); PROTEIN,URINE NEGATIVE (NEGATIVE); UROBILINOGEN,URINE 0.2 (NORMAL) E.U./dL (NORMAL)
[2020-12-10 17:34] LABS: CLARITY,URINE CLEAR (CLEAR)
[2020-12-10 17:40] LABS: BASOPHILS # (AUTO) 0.1 10^3/uL (0.0-0.1); BASOPHILS % (AUTO) 0.9 %; EOSINOPHILS # (AUTO) 0.2 10^3/uL (0.0-0.7); EOSINOPHILS % (AUTO) 3.3 %; HCT - HEMATOCRIT 40.6 % (37.0-47.0); HGB - HEMOGLOBIN 12.9 g/dL (12.0-16.0); LYMPHOCYTES # (AUTO) 1.9 10^3/uL (1.5-3.5); LYMPHOCYTES % (AUTO) 27.1 %; MEAN CORPUSCULAR HEMOGLOBIN 28.7 pg (27.0-31.0); MEAN CORPUSCULAR HGB CONC 31.8 g/dL (32.0-36.0); MEAN CORPUSCULAR VOLUME 90.2 fL (81.0-99.0); MEAN PLATELET VOLUME 9.3 fL (7.9-10.8); MONOCYTES # (AUTO) 0.5 10^3/uL (0.0-1.0); MONOCYTES % (AUTO) 6.6 %; NEUTROPHILS # (AUTO) 4.3 10^3/uL (1.5-6.6); NEUTROPHILS % (AUTO) 61.8 %; PLT - PLATELET COUNT 232 10^3/uL (130-450); RED CELL DISTRIBUTION WIDTH 14.8 % (12.0-15.0)
[2020-12-10 17:54] LABS: ALBUMIN 4.8 g/dL (3.2-5.5); ALBUMIN/GLOBULIN RATIO 1.4 (1.0-2.2); BILIRUBIN,TOTAL 0.6 mg/dL (0.2-1.0); CALCIUM 9.5 mg/dL (8.5-10.3); CREATININE 1.3 mg/dL (0.4-1.0); TOTAL PROTEIN 8.2 g/dL (6.7-8.2)
[2020-12-10] MEDS ORDERED: fentaNYL 100 MCG/2 ML VIAL IVP STA (17:58)
--- NOTE | 2020-12-10 18:08 | ED Physician Documentation ---
History of Present Illness - Stated complaint Stated Complaint: ABD PX - Chief complaint Chief Complaint: Abd Pain - Additonal information Additional information: 75-year-old female presents emergency department for evaluation of rule out ap pendicitis. The patient reports that for about the last 3 days she has been having cough congestion and sore throat. She did present to our local walk-in clinic on on exam they noted that she had acute right lower quadrant abdominal pain therefore they advised her to come to the ER for further evaluation. Patient denies that she was experiencing abdominal pain on presentation to the walk-in clinic. Patient does have a history of a complicated abdomen. She has a history of bowel rectal and uterine prolapse. She underwent surgery in August 2019 but that surgery ultimately failed. Patient is scheduled to have a follow-up Abdominal surgery at [facility] 12/20/[address] Lorie Hunt to correct her multiple prolapses. She does have an implanted stimulator for bowel function. Review of Systems Constitutional: reports: Reviewed and negative Eyes: reports: Reviewed and negative Nose: reports: Rhinorrhea / runny nose, Congestion Throat: reports: Sore throat Cardiac: reports: Reviewed and negative Respiratory: reports: Reviewed and negative GI: reports: Reviewed and negative : reports: Reviewed and negative Skin: reports: Reviewed and negative Musculoskeletal: reports: Extremity swelling (left leg) Neurologic: reports: Reviewed and negative PD PAST MEDICAL HISTORY - Past Medical History Cardiovascular: None Neuro: Headaches Endocrine/Autoimmune: Type 2 diabetes GI: GERD : None HEENT: Other Psych: Depression Musculoskeletal: Other Derm: Other - Past Surgical History 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 HEENT: Cataracts, Other - Present Medications Home Medications: Ambulatory Orders Medication Instructions Recorded Confirmed Duloxetine HCl 1 cap PO DAILY 04/12/18 04/12/18 Estrogens, Conjugated [Premarin] 0.45 mg PO DAILY 04/12/18 04/12/18 HYDROcod/ACETAM 5/325 [[place] 5/325] 1 tab PO Q6H PRN #15 tablet 04/12/18 Metformin HCl 1 tab PO BID 04/12/18 04/12/18 Naproxen 375 mg PO BID #20 tablet 04/12/18 Omeprazole 1 cap PO DAILY 04/12/18 04/12/18 atenoloL [Atenolol] 1 tab PO DAILY 04/12/18 04/12/18 - Allergies Allergies/Adverse Reactions: Allergies Allergy/AdvReac Type Severity Reaction Status Date / Time gabapentin Allergy Rash Verified 04/12/18 18:12 Iodinated Contrast Media Allergy Anaphylaxis Verified 04/12/18 18:12 [Iodinated Contrast- Oral and IV Dye] prednisone AdvReac Hives Verified 12/10/20 17:14 - Social History Does the pt smoke?: No Smoking Status: Never smoker Does the pt drink ETOH?: Yes Does the pt have substance abuse?: No - Immunizations Immunizations are current?: Yes - POLST Patient has POLST: No PD ED PE EXPANDED - General General: Alert, No acute distress - Cardiac Cardiac: Regular Rate, Radial strong equal, Pedal strong equal, Cap refill < 2 sec - Respiratory Respiratory: Clear to ausultation mary carmen. No: Distress, Labored - Abdomen Abdomen: Normal Bowel sounds. No: Tender to palpation Results - Vitals Vitals: Vital Signs - 24 hr 12/10/20 12/10/20 12/10/20 17:14 18:10 19:10 Temperature 36.4 C L Heart Rate 63 61 58 L Respiratory 18 18 16 Rate Blood Pressure 147/64 H 155/66 H O2 Saturation 100 98 96 12/10/20 12/10/20 19:12 19:27 Temperature Heart Rate Respiratory 16 Rate Blood Pressure 92/27 L O2 Saturation Oxygen O2 Source Room air - Labs Labs: Laboratory Tests 12/10/20 12/10/20 12/10/20 17:25 17:35 17:35 WBC 7.0 RBC 4.50 Hgb 12.9 Hct 40.6 MCV 90.2 MCH 28.7 MCHC 31.8 L RDW 14.8 Plt Count 232 MPV 9.3 Neut # (Auto) 4.3 Lymph # (Auto) 1.9 [place] # (Auto) 0.5 Eos # (Auto) 0.2 Baso # (Auto) 0.1 Absolute Nucleated RBC 0.00 Nucleated RBC % 0.0 Sodium 135 Potassium 4.0 Chloride 96 L Carbon Dioxide 30 Anion Gap 9.0 BUN 38 H Creatinine 1.3 H Estimated GFR (MDRD) 40 L Glucose 124 H Calcium 9.5 Total Bilirubin 0.6 AST 25 ALT 15 Alkaline Phosphatase 71 Total Protein 8.2 Albumin 4.8 Globulin 3.4 Albumin/Globulin Ratio 1.4 Lipase 56 H Urine Color YELLOW Urine Clarity CLEAR Urine pH 6.0 Ur Specific [place] 1.020 Urine Protein NEGATIVE Urine Glucose (UA) NEGATIVE Urine Ketones NEGATIVE Urine Occult Blood NEGATIVE Urine Nitrite NEGATIVE Urine Bilirubin NEGATIVE Urine Urobilinogen 0.2 (NORMAL) Ur Leukocyte Esterase NEGATIVE Ur Microscopic Review NOT INDICATED Urine Culture Comments NOT INDICATED - Rads (name of study) CT abd wo Radiology: Final report received (Overall no acute abnormality. The appendix is not clearly identified however no suspicious inflammatory changes in the right lower quadrant.) PD MEDICAL DECISION MAKING - ED course Complexity details: reviewed results, re-evaluated patient, d/w patient, d/w family ED course: For [id number] female presents to the emergency department on the advice of provider at walk-in clinic duration of right lower quadrant abdominal pain. She initially presented to the walk-in clinic for evaluation of 3 days sore throat but during the exam the provider noted right lower quadrant abdominal pain and was concerned that she could have acute appendicitis therefore referred her to the emergency department. At the walk-in clinic rapid strep was negative a culture is pending. I have advised COVID-19 screening. On exam today she did have a right lower quadrant abdominal tenderness without guarding or rebound. Her abdominal history is quite complicated with a history of multiple bladder bowel and rectal prolapse. She has failed 1 surgical repair and is scheduled to undergo surgery of these prolapses on 21 December at [facility]. Given history of severe anaphylaxis to contrast we were unable to do a CT of the abdomen with contrast today however reassuringly a noncontrast CT does not show secondary findings of appendicitis. Moderate stool is found throughout the colon. She does require a nerve stimulator in order to have bowel movements secondary to the history of prolapse and I suspect that worsening constipation may be contributing to her lower abdominal pain. Reassuringly today she has no fevers vomiting leukocytosis. She does report that while she was charging her nerve stimulator she was without it for about 2 days. At this time patient is stable for discharge home. I have recommended that she continue to use her nerve stimulator as well as take MiraLAX to help with mild constipation. She is to return to the emergency department if she develops fevers has worsening abdominal pain uncontrolled vomiting or any other emergent symptoms. Departure - Departure Disposition: 01 Home, Self Care Clinical Impression: Lower abdominal pain Condition: Stable Record reviewed to determine appropriate education?: Yes Instructions: ED Abdominal Pain Unkn Cause Follow-Up: Demmler,Puneet W, MD [Primary Care Provider] - Comments: Aliya prather were seen in the emergency department today for evaluation of lower abdominal pain that was noted on exam when you went to the walk-in clinic for evaluation of your sore throat. Your screening labs today are essentially normal. You do not have an elevated white blood cell count. Your vital signs have been normal and you do not have any fever. Because of your iodine contrast allergy we could not do a CT scan with contrast. However the noncontrast CT did not show findings that were worrisome for appendicitis. They do note that there is moderate stool throughout your colon. I do suspect that mild the constipation is contributing to your symptoms. I would like you to take MiraLAX [id number] once or twice a day until you have 3 or 4 watery bowel movements. Please continue to use your nerve stimulator. If at any point you have worsening symptoms, develop any fever, have severe abdominal pain or vomiting please return to the emergency department for a second look. You have a Covid test pending. You need to self quarantine until the result is done and negative. Do not leave your house. Do not get near anybody. The results should be done in 48 to 72 hours. We will call with a positive result, the fastest way to get a negative result for confirmation though is to go to the hospital website at [email or web address], click on the my [facility] tab and sign up for the patient portal. If any friends or family get sick and would like to have a Covid test done, but do not have signs or symptoms that would necessitate being hospitalized, we encourage testing through our coronavirus swabbing station, call [phone] to schedule an appointment.
--- NOTE | 2020-12-10 18:50 | CT Report ---
PROCEDURE: Abdomen/Pelvis WO INDICATIONS: eval for acute appy; hx of multiple prolapse TECHNIQUE: Noncontrast 5 mm thick sections acquired from the diaphragms to the symphysis. 5 mm coronal and sagi ttal reformats were then performed. For radiation dose reduction, the following was used: automated exposure control, adjustment of mA and/or kV according to patient size. COMPARISON: 03/01/2020 CT abdomen pelvis FINDINGS: ABDOMEN: Lung bases: Normal Heart:Normal. Liver: Hepatic foci statistically representing cysts although technically indeterminate due to small size. These appear unchanged since 03/01/2020 Gallbladder: Surgically absent Bile ducts: Normal. Pancreas: Normal. Spleen: Normal. Adrenals: Normal. Kidneys and ureters: Normal. Stomach and duodenum: Normal. Bowel: The appendix is not clearly identified however no suspicious inflammatory changes in the right lower quadrant. No evidence of bowel obstruction. There is moderate stool throughout the colon. Colonic diverticulosi s incidentally noted without evidence of acute inflammation. Other: No free fluid or air. Abdominal nodes: Normal. Aorta: Normal in size. There are scattered vascular calcifications. IVC: Normal. Ventral wall: Normal. PELVIS: Bladder: Normal. Pelvic nodes: Normal. Inguinal regions: No hernia. Bones: Diffuse osteopenia. Spondylosis and facet arthropathy. IMPRESSION: Overall, no acute abnormality. The appendix is not clearly identified however no suspicious inflammat ory changes in the right lower quadrant. Additional chronic and incidental findings as above. Reviewed by: Rafael Torres MD on 12/10/2020 6:49 PM PDT Approved by: Rafael Torres MD on 12/10/2020 6:49 PM PDT Station ID: [id number]
[2020-12-10 19:47] VITALS: BP 131/86
== END 2020-12-10 20:21 | disposition home or self-care (01) ==
LOC: ED 17:07
DX: R10.31 Right lower quadrant pain (principal); K59.00 Constipation, unspecified; J02.9 Acute pharyngitis, unspecified; R05 Cough; Z20.822 Contact with and (suspected) exposure to COVID-19; E11.9 Type 2 diabetes mellitus without complications; Z79.84 Long term (current) use of oral hypoglycemic drugs; Z91.041 Radiographic dye allergy status; Z96.82 Presence of neurostimulator
CPT/HCPCS: 36415; 74176; 80053; 81003; 83690; 85025; 96374; 99283; 99284; U0004; 81001; 87086

== ENCOUNTER 2020-12-18 08:00 | Outpatient (CLI) | payer MEDICARE, OTHER ==
[2020-12-18 18:16] LABS: THYROID STIMULATING HORMONE 2.49 uIU/mL (0.34-5.60)
[2020-12-18 18:19] LABS: FREE T3 2.94 pg/mL (2.5-3.9)
[2020-12-18 18:20] LABS: FREE T4 (FREE THYROXINE) 0.72 ng/dL (0.58-1.64)
== END 2020-12-18 23:59 | disposition home or self-care (01) ==
LOC: LAB.WCP 08:00
PROVIDERS: ATTEND Family Medicine
DX: K59.09 Other constipation (principal); R53.83 Other fatigue
CPT/HCPCS: 36415; 84439; 84443; 84481

== ENCOUNTER 2021-03-18 11:45 | Outpatient (CLI) | payer MEDICARE, OTHER ==
[2021-03-18 18:07] LABS: BASOPHILS # (AUTO) 0.1 10^3/uL (0.0-0.1); BASOPHILS % (AUTO) 0.9 %; EOSINOPHILS # (AUTO) 0.2 10^3/uL (0.0-0.7); HCT - HEMATOCRIT 39.3 % (37.0-47.0); HGB - HEMOGLOBIN 12.3 g/dL (12.0-16.0); LYMPHOCYTES # (AUTO) 1.5 10^3/uL (1.5-3.5); LYMPHOCYTES % (AUTO) 26.1 %; MEAN CORPUSCULAR HEMOGLOBIN 29.1 pg (27.0-31.0); MEAN CORPUSCULAR HGB CONC 31.3 g/dL (32.0-36.0); MEAN CORPUSCULAR VOLUME 93.1 fL (81.0-99.0); MEAN PLATELET VOLUME 10.1 fL (7.9-10.8); MONOCYTES # (AUTO) 0.4 10^3/uL (0.0-1.0); MONOCYTES % (AUTO) 6.3 %; NEUTROPHILS # (AUTO) 3.6 10^3/uL (1.5-6.6); NEUTROPHILS % (AUTO) 63.5 %; PLT - PLATELET COUNT 211 10^3/uL (130-450); RED BLOOD COUNT 4.22 10^6/uL (4.20-5.40); RED CELL DISTRIBUTION WIDTH 13.2 % (12.0-15.0); WHITE BLOOD COUNT 5.6 x10^3/uL (4.8-10.8)
[2021-03-18 18:18] LABS: ALBUMIN 4.2 g/dL (3.2-5.5); ALBUMIN/GLOBULIN RATIO 1.3 (1.0-2.2); BILIRUBIN,TOTAL 0.7 mg/dL (0.2-1.0); CALCIUM 9.4 mg/dL (8.5-10.3); CREATININE 1.1 mg/dL (0.4-1.0); POTASSIUM 4.5 mmol/L (3.5-5.0); TOTAL PROTEIN 7.5 g/dL (6.7-8.2)
[2021-03-18 18:21] LABS: CREATININE,URINE 102.6 mg/dL; MICROALBUM/CREATININE RATIO,UR 15.6 ug/mg (<30.0); MICROALBUMIN,URINE 1.6 mg/dL (0-300.0)
[2021-03-18 18:34] LABS: THYROID STIMULATING HORMONE 3.35 uIU/mL (0.34-5.60)
[2021-03-18 20:34] LABS: ESTIMATED AVERAGE GLUCOSE 163 mg/dL (70-100); HEMOGLOBIN A1c% 7.3 % (4.27-6.07)
== END 2021-03-18 23:59 | disposition home or self-care (01) ==
LOC: LAB.WCP 11:45
PROVIDERS: ATTEND Family Medicine
DX: D64.9 Anemia, unspecified (principal); R53.83 Other fatigue; K59.09 Other constipation; K58.9 Irritable bowel syndrome, unspecified; E11.22 Type 2 diabetes mellitus with diabetic chronic kidney disease; M35.3 Polymyalgia rheumatica; N18.32 Chronic kidney disease, stage 3b
CPT/HCPCS: 36415; 80053; 82043; 82570; 83036; 84443; 85025

== ENCOUNTER 2022-07-28 12:48 | Emergency (ER) | payer MEDICARE, OTHER ==
--- NOTE | 2022-07-28 13:49 | XRAY Report ---
PROCEDURE: Chest 1 View X-Ray INDICATIONS: Chest Pain TECHNIQUE: One view of the chest was acquired. COMPARISON: 05/16/2019 FINDINGS: Surgical changes and devices: None. Lungs and pleura: No pleural effusions or pneumothorax. Lungs are clear. Mediastinum: Mediastinal contours appear normal. Heart size is normal. Bones and chest wall: No suspicious bony lesions. Overlying soft tissues appear unremarkable. IMPRESSION: No acute radiographic abnormality. Reviewed by: Moy Monroy MD on 07/28/2022 1:48 PM PST Approved by: Moy Monroy MD on 07/28/2022 1:48 PM [facility] Station ID: [id number]
[2022-07-28 14:08] LABS: BASOPHILS # (AUTO) 0.1 10^3/uL (0.0-0.1); BASOPHILS % (AUTO) 0.9 %; EOSINOPHILS # (AUTO) 0.1 10^3/uL (0.0-0.7); EOSINOPHILS % (AUTO) 1.3 %; HGB - HEMOGLOBIN 12.3 g/dL (12.0-16.0); LYMPHOCYTES % (AUTO) 18.4 %; MEAN CORPUSCULAR HEMOGLOBIN 27.2 pg (27.0-31.0); MEAN CORPUSCULAR VOLUME 90.5 fL (81.0-99.0); MEAN PLATELET VOLUME 9.6 fL (7.9-10.8); MONOCYTES # (AUTO) 0.6 10^3/uL (0.0-1.0); NEUTROPHILS # (AUTO) 3.8 10^3/uL (1.5-6.6); PLT - PLATELET COUNT 232 10^3/uL (130-450); RED BLOOD COUNT 4.53 10^6/uL (4.20-5.40); RED CELL DISTRIBUTION WIDTH 13.3 % (12.0-15.0); WHITE BLOOD COUNT 5.5 x10^3/uL (4.8-10.8)
[2022-07-28 14:22] LABS: ALBUMIN 4.5 g/dL (3.2-5.5); ALBUMIN/GLOBULIN RATIO 1.1 (1.0-2.2); BILIRUBIN,TOTAL 0.7 mg/dL (0.2-1.0); CALCIUM 9.2 mg/dL (8.5-10.3); CREATININE 1.5 mg/dL (0.4-1.0); POTASSIUM 3.8 mmol/L (3.5-5.0); TOTAL PROTEIN 8.5 g/dL (6.7-8.2)
[2022-07-28 14:41] LABS: B. PARAPERTUSSIS- RESP PCR PAN NOT DETECTED; B. PERTUSSIS- RESP PCR PANEL NOT DETECTED; C. PNEUMONIAE- RESP PCR PANEL NOT DETECTED; CORONAVIRUS 229E-RESP PCR NOT DETECTED; CORONAVIRUS HKU1-RESP PCR NOT DETECTED; CORONAVIRUS NL63-RESP PCR NOT DETECTED; CORONAVIRUS OC43-RESP PCR NOT DETECTED; HUMAN METAPNEUMOVIRUS NOT DETECTED; INFLUENZA A- RESP PCR PANEL NOT DETECTED; INFLUENZA B - RESP PCR PANEL NOT DETECTED; M. PNEUMONIAE- RESP PCR PANEL NOT DETECTED; PARAINFLUENZA VIRUS 1 NOT DETECTED; PARAINFLUENZA VIRUS 2 NOT DETECTED; PARAINFLUENZA VIRUS 3 NOT DETECTED; PARAINFLUENZA VIRUS 4 NOT DETECTED; RHINOVIRUS/ENTEROVIRUS NOT DETECTED; RSV- RESP PCR PANEL NOT DETECTED
[2022-07-28 14:46] LABS: SARS-CoV-2 -RESP PCR PANEL DETECTED
[2022-07-28 15:11] VITALS: BP 151/89
--- NOTE | 2022-07-28 15:22 | ED Physician Documentation ---
History of Present Illness - Stated complaint Stated Complaint: CHEST TIGHTNESS - Chief complaint Chief Complaint: General - Additonal information Additional information: 76-year-old female comes emergency department for evaluation of cough congestion and pleuritic chest pain that began yesterday. She reports that it hurts every time she takes a deep breath and she is concerned that she could have a pulmonary embolism. She is fearful as her first had this and it is what caused his eventual demise. She has had no fevers, no nausea or vomiting. Chest pain is described as sharp and does not radiate. No jaw or arm pain. Review of Systems Constitutional: reports: Myalgias, Fatigue. denies: Fever Eyes: reports: Reviewed and negative Throat: reports: Reviewed and negative Cardiac: reports: Chest pain / pressure. denies: Palpitations, Pedal edema, Calf pain Respiratory: reports: Dyspnea, Cough. denies: Hemoptysis, Wheezing GI: reports: Reviewed and negative : reports: Reviewed and negative Skin: reports: Reviewed and negative PD PAST MEDICAL HISTORY - Past Medical History Cardiovascular: None Respiratory: None Neuro: Headaches Endocrine/Autoimmune: Type 2 diabetes GI: GERD : None HEENT: Other Psych: Depression Musculoskeletal: Other Derm: Other - Past Surgical History Past Surgical History: Yes /[employer]: Hysterectomy HEENT: Cataracts, Other - Present Medications Home Medications: Ambulatory Orders Medication Instructions Recorded Confirmed Duloxetine HCl 1 cap PO DAILY 04/12/18 12/10/20 Estrogens, Conjugated [Premarin] 0.45 mg PO DAILY 04/12/18 12/10/20 HYDROcod/ACETAM 5/325 [[place] 5/325] 1 tab PO Q6H PRN #15 tablet 04/12/18 12/10/20 Metformin HCl 500 tab PO BID 04/12/18 12/10/20 Naproxen 375 mg PO BID #20 tablet 04/12/18 12/10/20 Omeprazole 1 cap PO DAILY 04/12/18 12/10/20 atenoloL [Atenolol] 1 tab PO DAILY 04/12/18 12/10/20 Tramadol HCl [Ultram] 50 mg PO Q6HR 12/10/20 12/10/20 - Allergies Allergies/Adverse Reactions: Allergies Allergy/AdvReac Type Severity Reaction Status Date / Time gabapentin Allergy Rash Verified 07/28/22 13:14 Iodinated Contrast Media Allergy Anaphylaxis Verified 07/28/22 13:14 [Iodinated Contrast- Oral and IV Dye] prednisone AdvReac Hives Verified 07/28/22 13:14 - Social History Does the pt smoke?: No Smoking Status: Never smoker Does the pt drink ETOH?: Yes Does the pt have substance abuse?: No - Immunizations Immunizations are current?: Yes - POLST Patient has POLST: No PD ED PE NORMAL - General General: Alert and oriented X 3, No acute distress, Well developed/nourished - HEENT HEENT: Atraumatic, Moist mucous membranes - Neck Neck: Supple, no meningeal sign, No adenopathy - Cardiac Cardiac: RRR, No murmur - Respiratory Respiratory: No respiratory distress, Clear bilaterally - Abdomen Abdomen: Normal bowel sounds, Soft - Back Back: No CVA TTP, No spinal TTP - Derm Derm: Normal color, Warm and dry, No rash - Extremities Extremities: No deformity - Neuro Neuro: Alert and oriented X 3, research affiliate 2-12 intact Eye Opening: Spontaneous Motor: Obeys Commands Verbal: Oriented GCS Score: 15 Results - Vitals Vitals: Vital Signs - 24 hr 07/28/22 07/28/22 13:14 15:01 Temperature 37.2 C Heart Rate 88 78 Respiratory 20 28 H Rate Blood Pressure 150/80 H 151/89 H O2 Saturation 97 99 Oxygen O2 Source Room air - EKG (time done) 1330 Rate: Rate (enter#) (82) Rhythm: NSR Intervals: LBBB QRS: Normal Ischemia: Other (IVCD ) Compare to prior EKG: Unchanged from prior EKG (09/04/19) Computer interpretation: Agree with computer - Labs Labs: Laboratory Tests 07/28/22 07/28/22 07/28/22 13:30 14:03 14:03 WBC 5.5 RBC 4.53 Hgb 12.3 Hct 41.0 MCV 90.5 MCH 27.2 MCHC 30.0 L RDW 13.3 Plt Count 232 MPV 9.6 Neut # (Auto) 3.8 Lymph # (Auto) 1.0 L [place] # (Auto) 0.6 Eos # (Auto) 0.1 Baso # (Auto) 0.1 Absolute Nucleated RBC 0.00 Nucleated RBC % 0.0 Sodium 131 L Potassium 3.8 Chloride 94 L Carbon Dioxide 25 Anion Gap 12.0 BUN 27 H Creatinine 1.5 H Estimated GFR (MDRD) 34 L Glucose 203 H Calcium 9.2 Total Bilirubin 0.7 AST 26 ALT 11 Alkaline Phosphatase 86 Troponin I High Sens Total Protein 8.5 H Albumin 4.5 Globulin 4.0 Albumin/Globulin Ratio 1.1 Lipase 73 H Nasal Adenovirus (PCR) NOT DETECTED Nasal B. parapertussis DNA (PCR) NOT DETECTED Nasal Coronavir 229E PCR NOT DETECTED Nasal Coronavir HKU1 PCR NOT DETECTED Nasal Coronavir NL63 PCR NOT DETECTED Nasal Coronavir OC43 PCR NOT DETECTED Nasal Enterovir/Rhinovir PCR NOT DETECTED Nasal Influenza B PCR NOT DETECTED Nasal Influenza A PCR NOT DETECTED Nasal Parainfluen 1 PCR NOT DETECTED Nasal Parainfluen 2 PCR NOT DETECTED Nasal Parainfluen 3 PCR NOT DETECTED Nasal Parainfluen 4 PCR NOT DETECTED Nasal RSV (PCR) NOT DETECTED Nasal B.pertussis DNA PCR NOT DETECTED Nasal C.pneumoniae (PCR) NOT DETECTED [place] Human Metapneumo PCR NOT DETECTED Nasal M.pneumoniae (PCR) NOT DETECTED Nasal SARS-CoV-2 (PCR) DETECTED A 07/28/22 07/28/22 14:03 15:12 WBC RBC Hgb Hct MCV MCH MCHC RDW Plt Count MPV Neut # (Auto) Lymph # (Auto) [place] # (Auto) Eos # (Auto) Baso # (Auto) Absolute Nucleated RBC Nucleated RBC % Sodium Potassium Chloride Carbon Dioxide Anion Gap BUN Creatinine Estimated GFR (MDRD) Glucose Calcium Total Bilirubin AST ALT Alkaline Phosphatase Troponin I High Sens 20.8 H* 20.2 H* Total Protein Albumin Globulin Albumin/Globulin Ratio Lipase Nasal Adenovirus (PCR) Nasal B. parapertussis DNA (PCR) Nasal Coronavir 229E PCR Nasal Coronavir HKU1 PCR Nasal Coronavir NL63 PCR Nasal Coronavir OC43 PCR Nasal Enterovir/Rhinovir PCR Nasal Influenza B PCR Nasal Influenza A PCR Nasal Parainfluen 1 PCR Nasal Parainfluen 2 PCR Nasal Parainfluen 3 PCR Nasal Parainfluen 4 PCR Nasal RSV (PCR) Nasal B.pertussis DNA PCR Nasal C.pneumoniae (PCR) [place] Human Metapneumo PCR Nasal M.pneumoniae (PCR) Nasal SARS-CoV-2 (PCR) - Rads (name of study) cxr Radiology: Final report received (No acute radiographic abnormality) PD Medical Decision Making - ED course Complexity details: reviewed results, re-evaluated patient, considered differential, d/w patient ED course: 76-year-old female presents emergency department for evaluation of cough, congestion, myalgias and some chills. Subjective fevers. She is not vaccinated for COVID-19. She has tested positive for COVID-19 today. She did endorse pleuritic chest pain which I suspect to be pleurisy. By Wells criteria she is otherwise very low risk for PE. A chest x-ray today was unremarkable for findings suggest COVID-pneumonia, pleural effusion. Her labs completed today did not show any acute worrisome findings. Her initial troponin was 20 and on repeat it remains 20. She does have known chronic kidney disease and I suspect that this troponin may be secondary to that. Her EKG was nonischemic and essentially unchanged from the most recent one completed in August 2019. My suspicion for ACS is low I did discuss the COVID-19 infection with the patient and her . She reports that she is very sensitive to medications and though she would be a candidate for oral outpatient antiviral therapy i.e. Paxlovid or Molnupiravir she declined that today. Therefore we discussed the routine usual precautions and care measures for viral respiratory symptoms. Departure - Departure Disposition: Home, Self Care Clinical Impression: COVID-19 CKD (chronic kidney disease) Qualifiers: Chronic kidney disease stage: unspecified stage Qualified Code(s): N18.9 - Chronic kidney disease, unspecified Condition: Stable Record reviewed to determine appropriate education?: Yes Instructions: ED Viral Syndrome Comments: Aliya prather came to the emergency department with cough, chills body aches and feeling generally unwell. Your labs today do not indicate a heart attack. You do have worsening chronic kidney disease as your creatinine today is 1.5. Please discuss this closely with your primary care doctors. However you have tested positive for COVID-19. This is most likely the subomicron variant. This variant tends to produce more flulike symptoms and less respiratory illness. I encourage you to get plenty of rest and fluids. You can take Tylenol and ibuprofen [id number]. Return to the ER if you find that your symptoms are worsening, you have severe chest pain any fainting episodes or severe shortness of air
== END 2022-07-28 16:31 | disposition home or self-care (01) ==
LOC: ED 12:48
DX: U07.1 COVID-19 (principal); N18.9 Chronic kidney disease, unspecified; Z28.310 Unvaccinated for COVID-19
CPT/HCPCS: 36415; 80053; 83690; 84484; 85025; 85379; 87633; 93005; 99283; 99284

== ENCOUNTER 2022-08-05 08:56 | Outpatient (CLI) | payer MEDICARE, OTHER ==
[2022-08-05 13:01] LABS: CALCIUM 9.1 mg/dL (8.5-10.3); CREATININE 1.2 mg/dL (0.4-1.0); POTASSIUM 4.2 mmol/L (3.5-5.0)
[2022-08-05 13:47] LABS: ESTIMATED AVERAGE GLUCOSE 237 mg/dL (70-100); HEMOGLOBIN A1c% 9.9 % (4.27-6.07)
== END 2022-08-05 08:57 | disposition home or self-care (01) ==
LOC: LAB.N 08:56
PROVIDERS: ATTEND Family Medicine
DX: E11.65 Type 2 diabetes mellitus with hyperglycemia (principal)
CPT/HCPCS: 36415; 80048; 83036

== ENCOUNTER 2022-10-05 20:51 | Emergency (ER) | payer MEDICARE, OTHER ==
--- OUTSIDE RECORDS SUMMARY | 2022-10-05 21:33 | EXTERNAL MEDICAL SUMMARY RPT | Continuity of Care Document ---
:1945 Author Organization [facility] Address [address] [place] [address] Phone Care Team Providers Name Role Phone Puneet Huerta Unavailable Unavailable Allergies No information. Encounters No information. Functional Status No information. Immunizations No information. Medications date description facility 2022-09-07 00:[address] [facility] 2022-09-07 00:[address] [facility] 2022-09-07 00:[address] [facility] 2022-09-07 [address] [facility] 2022-09-07 00:[address] [facility] 2022-09-07 00:[address] [facility] Problems date description facility 2022-09-07 00:[address] [facility] 2022-09-07 00:00 Total urinary incontinence [facility] 2022-09-07 00:[address] in female [facility] 2022-09-07 00:[address] [facility] 2022-09-10 15:[address] [facility] Procedures No information. Results/Labs test date author facility value unit interpret ation Result panel 1 (unknown) (no (unknown) (unknown) (no value) (units (unk nown) date) unknown) (unknown) (no (unknown) (unknown) 09/07/22 (units (unkno wn) date) unknown) (unknown) (no (unknown) (unknown) 12/12/20 15:42) (units (unknown) date) unknown) (unknown) (no (unknown) (unknown) [id number] (units (unkno wn) date) unknown) (unknown) (no (unknown) (unknown) Abnormal biliary (units (unknown) date) HIDA scan unknown) (unknown) (no (unknown) (unknown) Age/Sex: 76 / F (units (unknown) date) Date of Service: unknown) (unknown) (no (unknown) (unknown) Allergies (units (unkn own) date) unknown) (unknown) (no (unknown) (unknown) [place], [place] (units ( unknown) date) [id number] unknown) (unknown) (no (unknown) (unknown) Anaphylaxis (units (un known) date) unknown) (unknown) (no (unknown) (unknown) Atrophic (units (unkno wn) date) vulvovaginitis unknown) (unknown) (no (unknown) (unknown) Attending Dr: (units ( unknown) date) Sai Ramirez MD unknown) (unknown) (no (unknown) (unknown) 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 unknown) (unknown) (no (unknown) (unknown) Diabetes (units (unkno wn) date) unknown) (unknown) (no (unknown) (unknown) Documented By: (units (unknown) date) Sai Ramirez MD unknown) 09/07/22 1316 (unknown) (no (unknown) (unknown) Draft (units (unkno wn) date) unknown) (unknown) (no (unknown) (unknown) Family History (units (unknown) date) (Reviewed 05/30/20 unknown) @ 12:14 by Cinthia Dorantes MD) (unknown) (no (unknown) (unknown) Father Heart (units (u nknown) date) disease unknown) (unknown) (no (unknown) (unknown) [facility] ([facility] ([facility] date[facility] unknown) (unknown) (no (unknown) (unknown) GERD (units (unkno wn) date) (gastroesophageal unknown) reflux disease) (unknown) (no (unknown) (unknown) GERD with (units (unkn own) date) esophagitis unknown) (unknown) (no (unknown) (unknown) 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) (unknown) (no (unknown) (unknown) Gynecology Visit (units (unknown) date) unknown) (unknown) (no (unknown) (unknown) H/O cardiac (units (un known) date) catheterization unknown) (unknown) (no (unknown) (unknown) H/O: hysterectomy (units (unknown) date) unknown) (unknown) (no (unknown) (unknown) History of (units (unk nown) date) bladder suspension unknown) procedure (unknown) (no (unknown) (unknown) History of hernia (units (unknown) date) repair unknown) (unknown) (no (unknown) (unknown) History of (units (unk nown) date) rectocele unknown) (unknown) (no (unknown) (unknown) Hypertension (units (u nknown) date) unknown) (unknown) (no (unknown) (unknown) Incarcerated (units (u nknown) date) hernia unknown) (unknown) (no (unknown) (unknown) Intake Note: (units (u nknown) date) unknown) (unknown) (no (unknown) (unknown) Intake performed (units (unknown) date) by: Ange Garg unknown) (unknown) (no (unknown) (unknown) Intake (units (unkno wn) date) unknown) (unknown) (no (unknown) (unknown) Intake- Clincial (units (unknown) date) Staff unknown) (unknown) (no (unknown) (unknown) Iodinated Contrast (units (unknown) date) Media [Iodinated unknown) Contrast- Oral and IV Dye] Allergy (Verified (unknown) (no (unknown) (unknown) LBBB (left bundle (units (unknown) date) branch block) unknown) (unknown) (no (unknown) (unknown) Last Menstural (units (unknown) date) Cycle + Details unknown) (unknown) (no (unknown) (unknown) Loc: [facility] (units (unkno wn) date) unknown) (unknown) (no (unknown) (unknown) Medical History (units (unknown) date) (Updated 12/27/20 unknown) @ 00:00 by ) (unknown) (no (unknown) (unknown) 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 (u nknown) date) disease unknown) (unknown) (no (unknown) (unknown) New patient here (units (unknown) date) with urinary unknown) incontinence (unknown) (no (unknown) (unknown) Other Menstrual (units (unknown) date) Period: Surgical unknown) Menopause (unknown) (no (unknown) (unknown) PFSH (units (unkno wn) date) unknown) (unknown) (no (unknown) (unknown) Patient: (units (unkno wn) date) 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#: 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 (unknown) (no (unknown) (unknown) Reason For Visit (units (unknown) date) unknown) (unknown) (no (unknown) (unknown) Renal (units (unkno wn) date) insufficiency unknown) (unknown) (no (unknown) (unknown) Right upper (units (un known) date) quadrant pain unknown) (unknown) (no (unknown) (unknown) S/P hernia repair (units (unknown) date) unknown) (unknown) (no (unknown) (unknown) Signed By: (units (unk nown) date) unknown) (unknown) (no (unknown) (unknown) Smoking Status: (units (unknown) date) Former smoker unknown) (unknown) (no (unknown) (unknown) Social History (units (unknown) date) unknown) (unknown) (no (unknown) (unknown) Stress-induced (units (unknown) date) cardiomyopathy unknown) (unknown) (no (unknown) (unknown) Surgical History (units (unknown) date) (Reviewed 05/30/20 unknown) @ 12:14 by Cinthia Dorantes MD) (unknown) (no (unknown) (unknown) This note may (units ( unknown) date) have been all or unknown) partially generated using voice recognition (unknown) (no (unknown) (unknown) Tobacco + (units (unkn own) date) Substance Use unknown) (unknown) (no (unknown) (unknown) Tobacco Status (units (unknown) date) unknown) (unknown) (no (unknown) (unknown) 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 If (units (unknown) date) there are any unknown) questions, please contact the Medical Records (unknown) (no (unknown) (unknown) household (units (unkn own) date) members: unknown) significant other (unknown) (no (unknown) (unknown) may occur. (units (unk nown) date) Occasional unknown) wrong-word or 'sound-alike' substitutions may have (unknown) (no (unknown) (unknown) occupational (units (u nknown) date) status: previously unknown) employed (unknown) (no (unknown) (unknown) occurred due to (units (unknown) date) the inherent unknown) limitations of voice recognition software. Please (unknown) (no (unknown) (unknown) prednisone (units (unk nown) date) Adverse Reaction unknown) (Severe, Verified 12/12/20 15:42) (unknown) (no (unknown) (unknown) read the note (units ( unknown) date) carefully and unknown) recognize, using context, where these substitutions (unknown) (no (unknown) (unknown) severe (units (unkno wn) date) hypoglycemia unknown) (unknown) (no (unknown) (unknown) shellfish derived (units (unknown) date) Allergy (Severe, unknown) Verified 12/12/20 15:42) (unknown) (no (unknown) (unknown) software. (units (unkn own) date) Although every unknown) effort is made to edit content, maintenance apprentice errors Result panel 2 (unknown) (no (unknown) (unknown) (no value) (units (unk nown) date) unknown) (unknown) (no (unknown) (unknown) 09/07/22 13:30) (units (unknown) date) unknown) (unknown) (no (unknown) (unknown) 09/07/22 (units (unkno wn) date) unknown) (unknown) (no (unknown) (unknown) 09/07/22] (units (unkn own) date) unknown) (unknown) (no (unknown) (unknown) 04/18/20 [History (units (unknown) date) Confirmed unknown) 09/07/22] (unknown) (no (unknown) (unknown) 05/15/20] (units (unkn own) date) unknown) (unknown) (no (unknown) (unknown) 13:31 (units (unkno wn) date) unknown) (unknown) (no (unknown) (unknown) [id number] (units (unkno wn) date) unknown) (unknown) (no (unknown) (unknown) Abnormal biliary (units (unknown) date) HIDA scan unknown) (unknown) (no (unknown) (unknown) Age/Sex: 76 / F (units (unknown) date) Date of Service: unknown) (unknown) (no (unknown) (unknown) Allergies (units (unkn own) date) unknown) (unknown) (no (unknown) (unknown) [place], [place] (units ( unknown) date) [id number] unknown) (unknown) (no (unknown) (unknown) Anaphylaxis (units (un known) date) unknown) (unknown) (no (unknown) (unknown) Atrophic (units (unkno wn) date) vulvovaginitis unknown) (unknown) (no (unknown) (unknown) Attending Dr: (units ( unknown) date) Sai Ramirez MD unknown) (unknown) (no (unknown) (unknown) BMI 20.2 (units (unkno wn) date) unknown) (unknown) (no (unknown) (unknown) BP 128/60 (units (unkn own) date) unknown) (unknown) (no (unknown) (unknown) Blend) 1 - 3 cap (units (unknown) date) PO DAILY 09/01/18 unknown) [History Confirmed 05/15/20] (unknown) (no (unknown) (unknown) Blood Pressure (units (unknown) date) Location Rt unknown) brachial (unknown) (no (unknown) (unknown) 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 ( unknown) date) disease unknown) (unknown) (no (unknown) (unknown) CKD stage 3 (units (un known) date) secondary to unknown) diabetes (unknown) (no (unknown) (unknown) Cervical stenosis (units (unknown) date) of spinal canal unknown) (unknown) (no (unknown) (unknown) Cervicogenic (units (u nknown) date) headache unknown) (unknown) (no (unknown) (unknown) Chronic diarrhea (units (unknown) date) unknown) (unknown) (no (unknown) (unknown) Confirmed (units (unkn own) date) 09/07/22] unknown) (unknown) (no (unknown) (unknown) Confirmed (units (unkn own) date) 05/15/20] unknown) (unknown) (no (unknown) (unknown) : 1945 (units (unknown) date) Acct:[id number] unknown) (unknown) (no (unknown) (unknown) Dept at (units (unkno wn) date) . unknown) (unknown) (no (unknown) (unknown) Diabetes (units (unkno wn) date) unknown) (unknown) (no (unknown) (unknown) Documented By: (units (unknown) date) Sai Ramirez MD unknown) 09/07/22 1316 (unknown) (no (unknown) (unknown) Draft (units (unkno wn) date) unknown) (unknown) (no (unknown) (unknown) Family History (units (unknown) date) (Reviewed 05/30/20 unknown) @ 12:14 by Cinthia Dorantes MD) (unknown) (no (unknown) (unknown) Father Heart (units (u nknown) date) disease unknown) (unknown) (no (unknown) (unknown) [facility] ([facility] unknown) (unknown) (no (unknown) (unknown) 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 (units (unknown) date) pt here with unknown) ongoing urinary incontinence, denies any dysuria (unknown) (no (unknown) (unknown) GERD (units (unkno wn) date) (gastroesophageal unknown) reflux disease) (unknown) (no (unknown) (unknown) GERD with (units (unkn own) date) esophagitis unknown) (unknown) (no (unknown) (unknown) 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) (unknown) (no (unknown) (unknown) Gynecology Visit (units (unknown) date) unknown) (unknown) (no (unknown) (unknown) H/O cardiac (units (un known) date) catheterization unknown) (unknown) (no (unknown) (unknown) H/O: hysterectomy (units (unknown) date) unknown) (unknown) (no (unknown) (unknown) Height 5 ft 2 in (units (unknown) date) unknown) (unknown) (no (unknown) (unknown) History of (units (unk nown) date) bladder suspension unknown) procedure (unknown) (no (unknown) (unknown) History of hernia (units (unknown) date) repair unknown) (unknown) (no (unknown) (unknown) History of (units (unk nown) date) rectocele unknown) (unknown) (no (unknown) (unknown) Hypertension (units (u nknown) date) unknown) (unknown) (no (unknown) (unknown) Incarcerated (units (u nknown) date) hernia unknown) (unknown) (no (unknown) (unknown) Intake Note: (units (u nknown) date) unknown) (unknown) (no (unknown) (unknown) Intake performed (units (unknown) date) by: Ange Garg unknown) (unknown) (no (unknown) (unknown) Intake (units (unkno wn) date) unknown) (unknown) (no (unknown) (unknown) Intake- Clincial (units (unknown) date) Staff unknown) (unknown) (no (unknown) (unknown) Iodinated Contrast (units (unknown) date) Media [Iodinated unknown) Contrast- Oral and IV Dye] Allergy (Verified (unknown) (no (unknown) (unknown) L.acidophil-L.case (units (unknown) date) i-B.bifid-B.longum unknown) -FOS 2 billion cell-50 mg capsule (Probiotic (unknown) (no (unknown) (unknown) LBBB (left bundle (units (unknown) date) branch block) unknown) (unknown) (no (unknown) (unknown) Last Menstural (units (unknown) date) Cycle + Details unknown) (unknown) (no (unknown) (unknown) Loc: [facility] (units (unkno wn) date) unknown) (unknown) (no (unknown) (unknown) Medical History (units (unknown) date) (Updated 12/27/20 unknown) @ 00:00 by ) (unknown) (no (unknown) (unknown) Medications (units (un known) date) unknown) (unknown) (no (unknown) (unknown) 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 (u nknown) date) disease unknown) (unknown) (no (unknown) (unknown) Other Menstrual (units (unknown) date) Period: unknown) Postmenopausal (hysterectomy) (unknown) (no (unknown) (unknown) PFSH (units (unkno wn) date) unknown) (unknown) (no (unknown) (unknown) PO DAILY 09/01/18 (units (unknown) date) [History Confirmed unknown) 05/15/20] (unknown) (no (unknown) (unknown) Patient: (units (unkno wn) date) 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#: 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 (unknown) (no (unknown) (unknown) Position Sitting (units (unknown) date) unknown) (unknown) (no (unknown) (unknown) Pt also had (units (un known) date) urethra debulking unknown) surgery (unknown) (no (unknown) (unknown) Reason For Visit (units (unknown) date) unknown) (unknown) (no (unknown) (unknown) Relief) 50 mcg (units ( unknown) date) intranasal DAILY unknown) PRN Allergy Symptoms 11/30/17 [History Confirmed (unknown) (no (unknown) (unknown) Renal (units (unkno wn) date) insufficiency unknown) (unknown) (no (unknown) (unknown) Right upper (units (un known) date) quadrant pain unknown) (unknown) (no (unknown) (unknown) S/P hernia repair (units (unknown) date) unknown) (unknown) (no (unknown) (unknown) Signed By: (units (unk nown) date) unknown) (unknown) (no (unknown) (unknown) Smoking Status: (units (unknown) date) Former smoker unknown) (unknown) (no (unknown) (unknown) Social History (units (unknown) date) unknown) (unknown) (no (unknown) (unknown) Stress-induced (units (unknown) date) cardiomyopathy unknown) (unknown) (no (unknown) (unknown) Surgery in 2019 (units (unknown) date) prolapse repair unknown) and 2020 (unknown) (no (unknown) (unknown) Surgical History (units (unknown) date) (Reviewed 05/30/20 unknown) @ 12:14 by Cinthia Dorantes MD) (unknown) (no (unknown) (unknown) This note may (units ( unknown) date) have been all or unknown) partially generated using voice recognition (unknown) (no (unknown) (unknown) Tobacco + (units (unkn own) date) Substance Use unknown) (unknown) (no (unknown) (unknown) Tobacco Status (units (unknown) date) unknown) (unknown) (no (unknown) (unknown) 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) (unknown) (no (unknown) (unknown) 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 (unknown) (no (unknown) (unknown) Vitals (units (unkno wn) date) unknown) (unknown) (no (unknown) (unknown) Wants to know if (units (unknown) date) the prolapse has unknown) returned (unknown) (no (unknown) (unknown) Weight 111 lb (units ( unknown) date) unknown) (unknown) (no (unknown) (unknown) alcohol intake: (units (unknown) date) current unknown) (unknown) (no (unknown) (unknown) alpha lipoic acid (units (unknown) date) 600 mg capsule 600 unknown) mg PO DAILY 04/18/20 [History Confirmed (unknown) (no (unknown) (unknown) ascorbic acid (units ( unknown) date) (vitamin C) 1,000 unknown) mg tablet 1 g PO DAILY 09/01/18 [History (unknown) (no (unknown) (unknown) aspirin 81 mg (units ( unknown) date) tablet,delayed unknown) release 81 mg PO DAILY 09/01/18 [History Confirmed (unknown) (no (unknown) (unknown) atorvastatin (units (u nknown) date) Adverse Reaction unknown) (Verified 09/07/22 13:30) (unknown) (no (unknown) (unknown) caregiver/support (units (unknown) date) person: Yes (son) unknown) (unknown) (no (unknown) (unknown) cholecalciferol (units (unknown) date) (vitamin D3) 25 unknown) mcg (1,000 unit) tablet (Vitamin D3) 1,000 unit (unknown) (no (unknown) (unknown) clopidogrel 75 mg (units (unknown) date) tablet (Plavix) 75 unknown) mg PO DAILY 09/07/22 [History Confirmed (unknown) (no (unknown) (unknown) empagliflozin 10 (units (unknown) date) mg tablet unknown) (Jardiance) 10 mg PO DAILY 09/07/22 [History (unknown) (no (unknown) (unknown) ezetimibe 10 mg (units (unknown) date) tablet 10 mg PO unknown) DAILY 09/07/22 [History Confirmed 09/07/22] (unknown) (no (unknown) (unknown) fluticasone (units (un known) date) propionate 50 unknown) mcg/actuation nasal spray,suspension (Flonase Allergy (unknown) (no (unknown) (unknown) gabapentin (units (unk nown) date) Allergy (Verified unknown) 09/07/22 13:30) (unknown) (no (unknown) (unknown) glipizide 10 mg (units (unknown) date) tablet 10 mg PO unknown) DAILY 09/07/22 [History Confirmed 09/07/22] (unknown) (no (unknown) (unknown) have occurred. If (units (unknown) date) there are any unknown) questions, please contact the Medical Records (unknown) (no (unknown) (unknown) household (units (unkn own) date) members: unknown) significant other (unknown) (no (unknown) (unknown) may occur. (units (unk nown) date) Occasional unknown) wrong-word or 'sound-alike' substitutions may have (unknown) (no (unknown) (unknown) metoprolol (units (unk nown) date) succinate 25 mg unknown) capsule sprinkle, ext. release 24 hr 25 mg PO DAILY (unknown) (no (unknown) (unknown) occupational (units (u nknown) date) status: previously unknown) employed (unknown) (no (unknown) (unknown) occurred due to (units (unknown) date) the inherent unknown) limitations of voice recognition software. Please (unknown) (no (unknown) (unknown) omega-3 acid ethyl (units (unknown) date) esters 1 gram unknown) capsule (Lovaza) 2 cap PO BID 11/30/17 [History (unknown) (no (unknown) (unknown) ondansetron 4 mg (units (unknown) date) disintegrating unknown) tablet 4 mg PO Q8H PRN nausea and vomiting #20 (unknown) (no (unknown) (unknown) pravastatin 80 mg (units (unknown) date) tablet 80 mg PO unknown) DAILY 09/07/22 [History Confirmed 09/07/22] (unknown) (no (unknown) (unknown) prednisone (units (unk nown) date) Adverse Reaction unknown) (Severe, Verified 09/07/22 13:30) (unknown) (no (unknown) (unknown) read the note (units ( unknown) date) carefully and unknown) recognize, using context, where these substitutions (unknown) (no (unknown) (unknown) sertraline 50 mg (units (unknown) date) tablet 100 mg PO unknown) QPM 09/07/22 [History Confirmed 09/07/22] (unknown) (no (unknown) (unknown) severe (units (unkno wn) date) hypoglycemia unknown) (unknown) (no (unknown) (unknown) shellfish derived (units (unknown) date) Allergy (Severe, unknown) Verified 09/07/22 13:30) (unknown) (no (unknown) (unknown) software. (units (unkn own) date) Although every unknown) effort is made to edit content, maintenance apprentice errors (unknown) (no (unknown) (unknown) tabs 05/15/20 (units ( unknown) date) [Rx] unknown) (unknown) (no (unknown) (unknown) tramadol 50 mg (units (unknown) date) tablet 50 mg PO unknown) Q8H PRN Pain 12/25/19 [History Confirmed Result panel 3 (unknown) (no (unknown) (unknown) (no value) (units (unk nown) date) unknown) (unknown) (no (unknown) (unknown) 09/07/22 13:30) (units (unknown) date) unknown) (unknown) (no (unknown) (unknown) 09/07/22 (units (unkno wn) date) unknown) (unknown) (no (unknown) (unknown) 09/07/22] (units (unkn own) date) unknown) (unknown) (no (unknown) (unknown) 04/18/20 [History (units (unknown) date) Confirmed unknown) 09/07/22] (unknown) (no (unknown) (unknown) 05/15/20] (units (unkn own) date) unknown) (unknown) (no (unknown) (unknown) 13:31 (units (unkno wn) date) unknown) (unknown) (no (unknown) (unknown) [id number] (units (unkno wn) date) unknown) (unknown) (no (unknown) (unknown) Abnormal biliary (units (unknown) date) HIDA scan unknown) (unknown) (no (unknown) (unknown) Age/Sex: 76 / F (units (unknown) date) Date of Service: unknown) (unknown) (no (unknown) (unknown) Allergies (units (unkn own) date) unknown) (unknown) (no (unknown) (unknown) [place], [place] (units ( unknown) date) [id number] unknown) (unknown) (no (unknown) (unknown) Anaphylaxis (units (un known) date) unknown) (unknown) (no (unknown) (unknown) Atrophic (units (unkno wn) date) vulvovaginitis unknown) (unknown) (no (unknown) (unknown) Attending Dr: (units ( unknown) date) Sai Ramirez MD unknown) (unknown) (no (unknown) (unknown) BMI 20.2 (units (unkno wn) date) unknown) (unknown) (no (unknown) (unknown) BP 128/60 (units (unkn own) date) unknown) (unknown) (no (unknown) (unknown) Blend) 1 - 3 cap (units (unknown) date) PO DAILY 09/01/18 unknown) [History Confirmed 05/15/20] (unknown) (no (unknown) (unknown) Blood Pressure (units (unknown) date) Location Rt unknown) brachial (unknown) (no (unknown) (unknown) 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 ( unknown) date) disease unknown) (unknown) (no (unknown) (unknown) CKD stage 3 (units (un known) date) secondary to unknown) diabetes (unknown) (no (unknown) (unknown) Cervical stenosis (units (unknown) date) of spinal canal unknown) (unknown) (no (unknown) (unknown) Cervicogenic (units (u nknown) date) headache unknown) (unknown) (no (unknown) (unknown) Chronic diarrhea (units (unknown) date) unknown) (unknown) (no (unknown) (unknown) Confirmed (units (unkn own) date) 09/07/22] unknown) (unknown) (no (unknown) (unknown) Confirmed (units (unkn own) date) 05/15/20] unknown) (unknown) (no (unknown) (unknown) : 1945 (units (unknown) date) Acct:[id number] unknown) (unknown) (no (unknown) (unknown) Dept at (units (unkno wn) date) . unknown) (unknown) (no (unknown) (unknown) Diabetes (units (unkno wn) date) unknown) (unknown) (no (unknown) (unknown) Documented By: (units (unknown) date) Sai Ramirez MD unknown) 09/07/22 1316 (unknown) (no (unknown) (unknown) Draft (units (unkno wn) date) unknown) (unknown) (no (unknown) (unknown) Family History (units (unknown) date) (Reviewed 05/30/20 unknown) @ 12:14 by Cinthia Dorantes MD) (unknown) (no (unknown) (unknown) Father Heart (units (u nknown) date) disease unknown) (unknown) (no (unknown) (unknown) [facility] (units ([facility] date[facility] unknown) (unknown) (no (unknown) (unknown) 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 (units (unknown) date) pt here with unknown) ongoing urinary incontinence, denies any dysuria (unknown) (no (unknown) (unknown) GERD (units (unkno wn) date) (gastroesophageal unknown) reflux disease) (unknown) (no (unknown) (unknown) GERD with (units (unkn own) date) esophagitis unknown) (unknown) (no (unknown) (unknown) 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) (unknown) (no (unknown) (unknown) Gynecology Visit (units (unknown) date) unknown) (unknown) (no (unknown) (unknown) H/O cardiac (units (un known) date) catheterization unknown) (unknown) (no (unknown) (unknown) H/O: hysterectomy (units (unknown) date) unknown) (unknown) (no (unknown) (unknown) Height 5 ft 2 in (units (unknown) date) unknown) (unknown) (no (unknown) (unknown) History of (units (unk nown) date) bladder suspension unknown) procedure (unknown) (no (unknown) (unknown) History of hernia (units (unknown) date) repair unknown) (unknown) (no (unknown) (unknown) History of (units (unk nown) date) rectocele unknown) (unknown) (no (unknown) (unknown) Hypertension (units (u nknown) date) unknown) (unknown) (no (unknown) (unknown) Incarcerated (units (u nknown) date) hernia unknown) (unknown) (no (unknown) (unknown) Intake Note: (units (u nknown) date) unknown) (unknown) (no (unknown) (unknown) Intake performed (units (unknown) date) by: Ange Garg unknown) (unknown) (no (unknown) (unknown) Intake (units (unkno wn) date) unknown) (unknown) (no (unknown) (unknown) Intake- Clincial (units (unknown) date) Staff unknown) (unknown) (no (unknown) (unknown) Iodinated Contrast (units (unknown) date) Media [Iodinated unknown) Contrast- Oral and IV Dye] Allergy (Verified (unknown) (no (unknown) (unknown) L.acidophil-L.case (units (unknown) date) i-B.bifid-B.longum unknown) -FOS 2 billion cell-50 mg capsule (Probiotic (unknown) (no (unknown) (unknown) LBBB (left bundle (units (unknown) date) branch block) unknown) (unknown) (no (unknown) (unknown) Last Menstural (units (unknown) date) Cycle + Details unknown) (unknown) (no (unknown) (unknown) Loc: [facility] (units (unkno wn) date) unknown) (unknown) (no (unknown) (unknown) Medical History (units (unknown) date) (Updated 12/27/20 unknown) @ 00:00 by ) (unknown) (no (unknown) (unknown) Medications (units (un known) date) unknown) (unknown) (no (unknown) (unknown) 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 (u nknown) date) disease unknown) (unknown) (no (unknown) (unknown) Other Menstrual (units (unknown) date) Period: unknown) Postmenopausal (hysterectomy) (unknown) (no (unknown) (unknown) PFSH (units (unkno wn) date) unknown) (unknown) (no (unknown) (unknown) PO DAILY 09/01/18 (units (unknown) date) [History Confirmed unknown) 05/15/20] (unknown) (no (unknown) (unknown) Patient: (units (unkno wn) date) 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#: 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 (unknown) (no (unknown) (unknown) Position Sitting (units (unknown) date) unknown) (unknown) (no (unknown) (unknown) Pt also had (units (un known) date) urethra debulking unknown) surgery (unknown) (no (unknown) (unknown) Reason For Visit (units (unknown) date) unknown) (unknown) (no (unknown) (unknown) Relief) 50 mcg (units ( unknown) date) intranasal DAILY unknown) PRN Allergy Symptoms 11/30/17 [History Confirmed (unknown) (no (unknown) (unknown) Renal (units (unkno wn) date) insufficiency unknown) (unknown) (no (unknown) (unknown) Right upper (units (un known) date) quadrant pain unknown) (unknown) (no (unknown) (unknown) S/P hernia repair (units (unknown) date) unknown) (unknown) (no (unknown) (unknown) Signed By: (units (unk nown) date) unknown) (unknown) (no (unknown) (unknown) Smoking Status: (units (unknown) date) Former smoker unknown) (unknown) (no (unknown) (unknown) Social History (units (unknown) date) unknown) (unknown) (no (unknown) (unknown) Stress-induced (units (unknown) date) cardiomyopathy unknown) (unknown) (no (unknown) (unknown) Surgery in 2019 (units (unknown) date) prolapse repair unknown) and 2020 (unknown) (no (unknown) (unknown) Surgical History (units (unknown) date) (Reviewed 05/30/20 unknown) @ 12:14 by Cinthia Dorantes MD) (unknown) (no (unknown) (unknown) This note may (units ( unknown) date) have been all or unknown) partially generated using voice recognition (unknown) (no (unknown) (unknown) Tobacco + (units (unkn own) date) Substance Use unknown) (unknown) (no (unknown) (unknown) Tobacco Status (units (unknown) date) unknown) (unknown) (no (unknown) (unknown) 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) (unknown) (no (unknown) (unknown) 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 (unknown) (no (unknown) (unknown) Vitals (units (unkno wn) date) unknown) (unknown) (no (unknown) (unknown) Wants to know if (units (unknown) date) the prolapse has unknown) returned (unknown) (no (unknown) (unknown) Weight 111 lb (units ( unknown) date) unknown) (unknown) (no (unknown) (unknown) alcohol intake: (units (unknown) date) current unknown) (unknown) (no (unknown) (unknown) alpha lipoic acid (units (unknown) date) 600 mg capsule 600 unknown) mg PO DAILY 04/18/20 [History Confirmed (unknown) (no (unknown) (unknown) ascorbic acid (units ( unknown) date) (vitamin C) 1,000 unknown) mg tablet 1 g PO DAILY 09/01/18 [History (unknown) (no (unknown) (unknown) aspirin 81 mg (units ( unknown) date) tablet,delayed unknown) release 81 mg PO DAILY 09/01/18 [History Confirmed (unknown) (no (unknown) (unknown) atorvastatin (units (u nknown) date) Adverse Reaction unknown) (Verified 09/07/22 13:30) (unknown) (no (unknown) (unknown) caregiver/support (units (unknown) date) person: Yes (son) unknown) (unknown) (no (unknown) (unknown) cholecalciferol (units (unknown) date) (vitamin D3) 25 unknown) mcg (1,000 unit) tablet (Vitamin D3) 1,000 unit (unknown) (no (unknown) (unknown) clopidogrel 75 mg (units (unknown) date) tablet (Plavix) 75 unknown) mg PO DAILY 09/07/22 [History Confirmed (unknown) (no (unknown) (unknown) empagliflozin 10 (units (unknown) date) mg tablet unknown) (Jardiance) 10 mg PO DAILY 09/07/22 [History (unknown) (no (unknown) (unknown) ezetimibe 10 mg (units (unknown) date) tablet 10 mg PO unknown) DAILY 09/07/22 [History Confirmed 09/07/22] (unknown) (no (unknown) (unknown) fluticasone (units (un known) date) propionate 50 unknown) mcg/actuation nasal spray,suspension (Flonase Allergy (unknown) (no (unknown) (unknown) gabapentin (units (unk nown) date) Allergy (Verified unknown) 09/07/22 13:30) (unknown) (no (unknown) (unknown) glipizide 10 mg (units (unknown) date) tablet 10 mg PO unknown) DAILY 09/07/22 [History Confirmed 09/07/22] (unknown) (no (unknown) (unknown) have occurred. If (units (unknown) date) there are any unknown) questions, please contact the Medical Records (unknown) (no (unknown) (unknown) household (units (unkn own) date) members: unknown) significant other (unknown) (no (unknown) (unknown) may occur. (units (unk nown) date) Occasional unknown) wrong-word or 'sound-alike' substitutions may have (unknown) (no (unknown) (unknown) metoprolol (units (unk nown) date) succinate 25 mg unknown) capsule sprinkle, ext. release 24 hr 25 mg PO DAILY (unknown) (no (unknown) (unknown) occupational (units (u nknown) date) status: previously unknown) employed (unknown) (no (unknown) (unknown) occurred due to (units (unknown) date) the inherent unknown) limitations of voice recognition software. Please (unknown) (no (unknown) (unknown) omega-3 acid ethyl (units (unknown) date) esters 1 gram unknown) capsule (Lovaza) 2 cap PO BID 11/30/17 [History (unknown) (no (unknown) (unknown) ondansetron 4 mg (units (unknown) date) disintegrating unknown) tablet 4 mg PO Q8H PRN nausea and vomiting #20 (unknown) (no (unknown) (unknown) pravastatin 80 mg (units (unknown) date) tablet 80 mg PO unknown) DAILY 09/07/22 [History Confirmed 09/07/22] (unknown) (no (unknown) (unknown) prednisone (units (unk nown) date) Adverse Reaction unknown) (Severe, Verified 09/07/22 13:30) (unknown) (no (unknown) (unknown) read the note (units ( unknown) date) carefully and unknown) recognize, using context, where these substitutions (unknown) (no (unknown) (unknown) sertraline 50 mg (units (unknown) date) tablet 100 mg PO unknown) QPM 09/07/22 [History Confirmed 09/07/22] (unknown) (no (unknown) (unknown) severe (units (unkno wn) date) hypoglycemia unknown) (unknown) (no (unknown) (unknown) shellfish derived (units (unknown) date) Allergy (Severe, unknown) Verified 09/07/22 13:30) (unknown) (no (unknown) (unknown) software. (units (unkn own) date) Although every unknown) effort is made to edit content, maintenance apprentice errors (unknown) (no (unknown) (unknown) tabs 05/15/20 (units ( unknown) date) [Rx] unknown) (unknown) (no (unknown) (unknown) tramadol 50 mg (units (unknown) date) tablet 50 mg PO unknown) Q8H PRN Pain 12/25/19 [History Confirmed Result panel 4 (unknown) (no (unknown) (unknown) (no value) (units (unk nown) date) unknown) (unknown) (no (unknown) (unknown) 09/07/22 13:30) (units (unknown) date) unknown) (unknown) (no (unknown) (unknown) 09/07/22 (units (unkno wn) date) unknown) (unknown) (no (unknown) (unknown) 09/07/22] (units (unkn own) date) unknown) (unknown) (no (unknown) (unknown) 04/18/20 [History (units (unknown) date) Confirmed unknown) 09/07/22] (unknown) (no (unknown) (unknown) 05/15/20] (units (unkn own) date) unknown) (unknown) (no (unknown) (unknown) 13:31 (units (unkno wn) date) unknown) (unknown) (no (unknown) (unknown) [id number] (units (unkno wn) date) unknown) (unknown) (no (unknown) (unknown) Abnormal biliary (units (unknown) date) HIDA scan unknown) (unknown) (no (unknown) (unknown) Age/Sex: 76 / F (units (unknown) date) Date of Service: unknown) (unknown) (no (unknown) (unknown) Allergies (units (unkn own) date) unknown) (unknown) (no (unknown) (unknown) [place], [place] (units ( unknown) date) [id number] unknown) (unknown) (no (unknown) (unknown) Anaphylaxis (units (un known) date) unknown) (unknown) (no (unknown) (unknown) Assessment + Plan (units (unknown) date) unknown) (unknown) (no (unknown) (unknown) Atrophic (units (unkno wn) date) vulvovaginitis unknown) (unknown) (no (unknown) (unknown) Attending Dr: (units ( unknown) date) Sai Ramirez MD unknown) (unknown) (no (unknown) (unknown) BMI 20.2 (units (unkno wn) date) unknown) (unknown) (no (unknown) (unknown) BP 128/60 (units (unkn own) date) unknown) (unknown) (no (unknown) (unknown) Blend) 1 - 3 cap (units (unknown) date) PO DAILY 09/01/18 unknown) [History Confirmed 05/15/20] (unknown) (no (unknown) (unknown) Blood Pressure (units (unknown) date) Location Rt unknown) brachial (unknown) (no (unknown) (unknown) 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 ( unknown) date) disease unknown) (unknown) (no (unknown) (unknown) CKD stage 3 (units (un known) date) secondary to unknown) diabetes (unknown) (no (unknown) (unknown) Cervical stenosis (units (unknown) date) of spinal canal unknown) (unknown) (no (unknown) (unknown) Cervicogenic (units (u nknown) date) headache unknown) (unknown) (no (unknown) (unknown) Chronic diarrhea (units (unknown) date) unknown) (unknown) (no (unknown) (unknown) Confirmed (units (unkn own) date) 09/07/22] unknown) (unknown) (no (unknown) (unknown) Confirmed (units (unkn own) date) 05/15/20] unknown) (unknown) (no (unknown) (unknown) : 1945 (units (unknown) date) Acct:[id number] unknown) (unknown) (no (unknown) (unknown) Dept at (units (unkno wn) date) . unknown) (unknown) (no (unknown) (unknown) Diabetes (units (unkno wn) date) unknown) (unknown) (no (unknown) (unknown) Documented By: (units (unknown) date) Sai Ramirez MD unknown) 09/07/22 1316 (unknown) (no (unknown) (unknown) Draft (units (unkno wn) date) unknown) (unknown) (no (unknown) (unknown) Family History (units (unknown) date) (Reviewed 05/30/20 unknown) @ 12:14 by Cinthia Dorantes MD) (unknown) (no (unknown) (unknown) Father Heart (units (u nknown) date) disease unknown) (unknown) (no (unknown) (unknown) [facility]) (unknown) (no (unknown) (unknown) 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 (units (unknown) date) pt here with unknown) ongoing urinary incontinence, denies any dysuria (unknown) (no (unknown) (unknown) GERD (units (unkno wn) date) (gastroesophageal unknown) reflux disease) (unknown) (no (unknown) (unknown) GERD with (units (unkn own) date) esophagitis unknown) (unknown) (no (unknown) (unknown) 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) (unknown) (no (unknown) (unknown) Gynecology Visit (units (unknown) date) unknown) (unknown) (no (unknown) (unknown) H/O cardiac (units (un known) date) catheterization unknown) (unknown) (no (unknown) (unknown) H/O: hysterectomy (units (unknown) date) unknown) (unknown) (no (unknown) (unknown) Height 5 ft 2 in (units (unknown) date) unknown) (unknown) (no (unknown) (unknown) History of (units (unk nown) date) bladder suspension unknown) procedure (unknown) (no (unknown) (unknown) History of hernia (units (unknown) date) repair unknown) (unknown) (no (unknown) (unknown) History of (units (unk nown) date) rectocele unknown) (unknown) (no (unknown) (unknown) Hypertension (units (u nknown) date) unknown) (unknown) (no (unknown) (unknown) Incarcerated (units (u nknown) date) hernia unknown) (unknown) (no (unknown) (unknown) Intake Note: (units (u nknown) date) unknown) (unknown) (no (unknown) (unknown) Intake performed (units (unknown) date) by: Ange Garg unknown) (unknown) (no (unknown) (unknown) Intake (units (unkno wn) date) unknown) (unknown) (no (unknown) (unknown) Intake- Clincial (units (unknown) date) Staff unknown) (unknown) (no (unknown) (unknown) Iodinated Contrast (units (unknown) date) Media [Iodinated unknown) Contrast- Oral and IV Dye] Allergy (Verified (unknown) (no (unknown) (unknown) L.acidophil-L.case (units (unknown) date) i-B.bifid-B.longum unknown) -FOS 2 billion cell-50 mg capsule (Probiotic (unknown) (no (unknown) (unknown) LBBB (left bundle (units (unknown) date) branch block) unknown) (unknown) (no (unknown) (unknown) Last Menstural (units (unknown) date) Cycle + Details unknown) (unknown) (no (unknown) (unknown) Loc: [facility] (units (unkno wn) date) unknown) (unknown) (no (unknown) (unknown) Medical History (units (unknown) date) (Updated 12/27/20 unknown) @ 00:00 by ) (unknown) (no (unknown) (unknown) Medications (units (un known) date) unknown) (unknown) (no (unknown) (unknown) 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 (u nknown) date) disease unknown) (unknown) (no (unknown) (unknown) Orders: (units (unkno wn) date) unknown) (unknown) (no (unknown) (unknown) Other Menstrual (units (unknown) date) Period: unknown) Postmenopausal (hysterectomy) (unknown) (no (unknown) (unknown) PFSH (units (unkno wn) date) unknown) (unknown) (no (unknown) (unknown) PO DAILY 09/01/18 (units (unknown) date) [History Confirmed unknown) 05/15/20] (unknown) (no (unknown) (unknown) Patient: (units (unkno wn) date) 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#: 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 (unknown) (no (unknown) (unknown) Position Sitting (units (unknown) date) unknown) (unknown) (no (unknown) (unknown) Pt also had (units (un known) date) urethra debulking unknown) surgery (unknown) (no (unknown) (unknown) Reason For Visit (units (unknown) date) unknown) (unknown) (no (unknown) (unknown) Referral (units (unkno wn) date) Gynecology N39.46 unknown) - Mixed incontinence, N39.490 - Overflow (unknown) (no (unknown) (unknown) Referrals (units (unkn own) date) unknown) (unknown) (no (unknown) (unknown) Relief) 50 mcg (units ( unknown) date) intranasal DAILY unknown) PRN Allergy Symptoms 11/30/17 [History Confirmed (unknown) (no (unknown) (unknown) Renal (units (unkno wn) date) insufficiency unknown) (unknown) (no (unknown) (unknown) Right upper (units (un known) date) quadrant pain unknown) (unknown) (no (unknown) (unknown) S/P hernia repair (units (unknown) date) unknown) (unknown) (no (unknown) (unknown) Signed By: (units (unk nown) date) unknown) (unknown) (no (unknown) (unknown) Smoking Status: (units (unknown) date) Former smoker unknown) (unknown) (no (unknown) (unknown) Social History (units (unknown) date) unknown) (unknown) (no (unknown) (unknown) Stress-induced (units (unknown) date) cardiomyopathy unknown) (unknown) (no (unknown) (unknown) Surgery in 2019 (units (unknown) date) prolapse repair unknown) and 2020 (unknown) (no (unknown) (unknown) Surgical History (units (unknown) date) (Reviewed 05/30/20 unknown) @ 12:14 by Cinthia Dorantes MD) (unknown) (no (unknown) (unknown) This note may (units ( unknown) date) have been all or unknown) partially generated using voice recognition (unknown) (no (unknown) (unknown) Tobacco + (units (unkn own) date) Substance Use unknown) (unknown) (no (unknown) (unknown) Tobacco Status (units (unknown) date) unknown) (unknown) (no (unknown) (unknown) 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) (unknown) (no (unknown) (unknown) 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 (unknown) (no (unknown) (unknown) Vitals (units (unkno wn) date) unknown) (unknown) (no (unknown) (unknown) Wants to know if (units (unknown) date) the prolapse has unknown) returned (unknown) (no (unknown) (unknown) Weight 111 lb (units ( unknown) date) unknown) (unknown) (no (unknown) (unknown) alcohol intake: (units (unknown) date) current unknown) (unknown) (no (unknown) (unknown) alpha lipoic acid (units (unknown) date) 600 mg capsule 600 unknown) mg PO DAILY 04/18/20 [History Confirmed (unknown) (no (unknown) (unknown) ascorbic acid (units ( unknown) date) (vitamin C) 1,000 unknown) mg tablet 1 g PO DAILY 09/01/18 [History (unknown) (no (unknown) (unknown) aspirin 81 mg (units ( unknown) date) tablet,delayed unknown) release 81 mg PO DAILY 09/01/18 [History Confirmed (unknown) (no (unknown) (unknown) atorvastatin (units (u nknown) date) Adverse Reaction unknown) (Verified 09/07/22 13:30) (unknown) (no (unknown) (unknown) caregiver/support (units (unknown) date) person: Yes (son) unknown) (unknown) (no (unknown) (unknown) cholecalciferol (units (unknown) date) (vitamin D3) 25 unknown) mcg (1,000 unit) tablet (Vitamin D3) 1,000 unit (unknown) (no (unknown) (unknown) clopidogrel 75 mg (units (unknown) date) tablet (Plavix) 75 unknown) mg PO DAILY 09/07/22 [History Confirmed (unknown) (no (unknown) (unknown) empagliflozin 10 (units (unknown) date) mg tablet unknown) (Jardiance) 10 mg PO DAILY 09/07/22 [History (unknown) (no (unknown) (unknown) ezetimibe 10 mg (units (unknown) date) tablet 10 mg PO unknown) DAILY 09/07/22 [History Confirmed 09/07/22] (unknown) (no (unknown) (unknown) fluticasone (units (un known) date) propionate 50 unknown) mcg/actuation nasal spray,suspension (Flonase Allergy (unknown) (no (unknown) (unknown) gabapentin (units (unk nown) date) Allergy (Verified unknown) 09/07/22 13:30) (unknown) (no (unknown) (unknown) glipizide 10 mg (units (unknown) date) tablet 10 mg PO unknown) DAILY 09/07/22 [History Confirmed 09/07/22] (unknown) (no (unknown) (unknown) have occurred. If (units (unknown) date) there are any unknown) questions, please contact the Medical Records (unknown) (no (unknown) (unknown) household (units (unkn own) date) members: unknown) significant other (unknown) (no (unknown) (unknown) incontinence, (units ( unknown) date) R15.9 - Full unknown) incontinence of feces (unknown) (no (unknown) (unknown) may occur. (units (unk nown) date) Occasional unknown) wrong-word or 'sound-alike' substitutions may have (unknown) (no (unknown) (unknown) metoprolol (units (unk nown) date) succinate 25 mg unknown) capsule sprinkle, ext. release 24 hr 25 mg PO DAILY (unknown) (no (unknown) (unknown) occupational (units (u nknown) date) status: previously unknown) employed (unknown) (no (unknown) (unknown) occurred due to (units (unknown) date) the inherent unknown) limitations of voice recognition software. Please (unknown) (no (unknown) (unknown) omega-3 acid ethyl (units (unknown) date) esters 1 gram unknown) capsule (Lovaza) 2 cap PO BID 11/30/17 [History (unknown) (no (unknown) (unknown) ondansetron 4 mg (units (unknown) date) disintegrating unknown) tablet 4 mg PO Q8H PRN nausea and vomiting #20 (unknown) (no (unknown) (unknown) pravastatin 80 mg (units (unknown) date) tablet 80 mg PO unknown) DAILY 09/07/22 [History Confirmed 09/07/22] (unknown) (no (unknown) (unknown) prednisone (units (unk nown) date) Adverse Reaction unknown) (Severe, Verified 09/07/22 13:30) (unknown) (no (unknown) (unknown) read the note (units ( unknown) date) carefully and unknown) recognize, using context, where these substitutions (unknown) (no (unknown) (unknown) sertraline 50 mg (units (unknown) date) tablet 100 mg PO unknown) QPM 09/07/22 [History Confirmed 09/07/22] (unknown) (no (unknown) (unknown) severe (units (unkno wn) date) hypoglycemia unknown) (unknown) (no (unknown) (unknown) shellfish derived (units (unknown) date) Allergy (Severe, unknown) Verified 09/07/22 13:30) (unknown) (no (unknown) (unknown) software. (units (unkn own) date) Although every unknown) effort is made to edit content, maintenance apprentice errors (unknown) (no (unknown) (unknown) tabs 05/15/20 (units ( unknown) date) [Rx] unknown) (unknown) (no (unknown) (unknown) tramadol 50 mg (units (unknown) date) tablet 50 mg PO unknown) Q8H PRN Pain 12/25/19 [History Confirmed Result panel 5 (unknown) (no (unknown) (unknown) (no value) (units (unk nown) date) unknown) (unknown) (no (unknown) (unknown) (1) Pelvic pain (units (unknown) date) in female: unknown) (unknown) (no (unknown) (unknown) (2) Overflow (units (u nknown) date) incontinence of unknown) urine: (unknown) (no (unknown) (unknown) (3) Fecal (units (unkn own) date) incontinence: unknown) (unknown) (no (unknown) (unknown) (4) Total urinary (units (unknown) date) incontinence: unknown) (unknown) (no (unknown) (unknown) * Lex Betancur (units (u nknown) date) MD Jami, at unknown) [facility]. Patient does not wish to (unknown) (no (unknown) (unknown) 09/07/22 13:30) (units (unknown) date) unknown) (unknown) (no (unknown) (unknown) 09/07/22 (units (unkno wn) date) unknown) (unknown) (no (unknown) (unknown) 09/07/22] (units (unkn own) date) unknown) (unknown) (no (unknown) (unknown) 04/18/20 [History (units (unknown) date) Confirmed unknown) 09/07/22] (unknown) (no (unknown) (unknown) 05/15/20] (units (unkn own) date) unknown) (unknown) (no (unknown) (unknown) 13:31 (units (unkno wn) date) unknown) (unknown) (no (unknown) (unknown) 60 minutes (units (unk nown) date) unknown) (unknown) (no (unknown) (unknown) [id number] (units (unkno wn) date) unknown) (unknown) (no (unknown) (unknown) Abnormal biliary (units (unknown) date) HIDA scan unknown) (unknown) (no (unknown) (unknown) Age/Sex: 76 / F (units (unknown) date) Date of Service: unknown) (unknown) (no (unknown) (unknown) Allergies (units (unkn own) date) unknown) (unknown) (no (unknown) (unknown) [place], [place] (units ( unknown) date) [id number] unknown) (unknown) (no (unknown) (unknown) Anaphylaxis (units (un known) date) unknown) (unknown) (no (unknown) (unknown) Appearance: (units (un known) date) grossly normal unknown) (unknown) (no (unknown) (unknown) Assessment + Plan (units (unknown) date) unknown) (unknown) (no (unknown) (unknown) Atrophic (units (unkno wn) date) vulvovaginitis unknown) (unknown) (no (unknown) (unknown) Attending Dr: (units ( unknown) date) Sai Ramirez MD unknown) (unknown) (no (unknown) (unknown) Attitude: (units (unkn own) date) cooperative unknown) (unknown) (no (unknown) (unknown) BMI 20.2 (units (unkno wn) date) unknown) (unknown) (no (unknown) (unknown) BP 128/60 (units (unkn own) date) unknown) (unknown) (no (unknown) (unknown) Bimanual Exam- (units (unknown) date) Adnexa, other: unknown) apex supported (unknown) (no (unknown) (unknown) Bimanual Exam- (units (unknown) date) Vagina + Uterus: unknown) uterus absent and other (Patient has extreme (unknown) (no (unknown) (unknown) Blend) 1 - 3 cap (units (unknown) date) PO DAILY 09/01/18 unknown) [History Confirmed 05/15/20] (unknown) (no (unknown) (unknown) Blood Pressure (units (unknown) date) Location Rt unknown) brachial (unknown) (no (unknown) (unknown) 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 ( unknown) date) disease unknown) (unknown) (no (unknown) (unknown) CKD stage 3 (units (un known) date) secondary to unknown) diabetes (unknown) (no (unknown) (unknown) Cervical stenosis (units (unknown) date) of spinal canal unknown) (unknown) (no (unknown) (unknown) Cervicogenic (units (u nknown) date) headache unknown) (unknown) (no (unknown) (unknown) Characteristics (units (unknown) date) of symptom or unknown) complaint: Recurrent overflow type incontinence (unknown) (no (unknown) (unknown) Chief Complaint (units (unknown) date) unknown) (unknown) (no (unknown) (unknown) Chief Complaint: (units (unknown) date) Urinary and fecal unknown) incontinence (unknown) (no (unknown) (unknown) Chronic diarrhea (units (unknown) date) unknown) (unknown) (no (unknown) (unknown) Confirmed (units (unkn own) date) 09/07/22] unknown) (unknown) (no (unknown) (unknown) Confirmed (units (unkn own) date) 05/15/20] unknown) (unknown) (no (unknown) (unknown) Const (units (unkno wn) date) unknown) (unknown) (no (unknown) (unknown) : 1945 (units (unknown) date) Acct:[id number] unknown) (unknown) (no (unknown) (unknown) Dept at (units (unkno wn) date) . unknown) (unknown) (no (unknown) (unknown) Details: (units (unkno wn) date) unknown) (unknown) (no (unknown) (unknown) Diabetes (units (unkno wn) date) unknown) (unknown) (no (unknown) (unknown) Documented By: (units (unknown) date) Sai Ramirez MD unknown) 09/07/22 1316 (unknown) (no (unknown) (unknown) Draft (units (unkno wn) date) unknown) (unknown) (no (unknown) (unknown) Duration: Since (units (unknown) date) unknown) (unknown) (no (unknown) (unknown) Exam (units (unkno wn) date) unknown) (unknown) (no (unknown) (unknown) External Female (units (unknown) date) Exam: normal unknown) appearance of the urethra and gaping introitus (unknown) (no (unknown) (unknown) Family History (units (unknown) date) (Reviewed 05/30/20 unknown) @ 12:14 by Cinthia Dorantes MD) (unknown) (no (unknown) (unknown) Father Heart (units (u nknown) date) disease unknown) (unknown) (no (unknown) (unknown) Fecal (units (unkno wn) date) incontinence type: unknown) fecal smearing Qualified Code(s): R15.1 (unknown) (no (unknown) (unknown) Fecal smearing (units (unknown) date) unknown) (unknown) (no (unknown) (unknown) [facility]) (unknown) (no (unknown) (unknown) 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 (units (unknown) date) pt here with unknown) ongoing urinary incontinence, denies any dysuria (unknown) (no (unknown) (unknown) GERD (units (unkno wn) date) (gastroesophageal unknown) reflux disease) (unknown) (no (unknown) (unknown) GERD with (units (unkn own) date) esophagitis unknown) (unknown) (no (unknown) (unknown) (units (unkno wn) date) unknown) (unknown) (no (unknown) (unknown) General: (units (unkno wn) date) cooperative unknown) (unknown) (no (unknown) (unknown) 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) (unknown) (no (unknown) (unknown) Gynecology Visit (units (unknown) date) unknown) (unknown) (no (unknown) (unknown) H/O cardiac (units (un known) date) catheterization unknown) (unknown) (no (unknown) (unknown) H/O: hysterectomy (units (unknown) date) unknown) (unknown) (no (unknown) (unknown) HENMT (units (unkno wn) date) unknown) (unknown) (no (unknown) (unknown) HPI (units (unkno wn) date) unknown) (unknown) (no (unknown) (unknown) Head: normal to (units (unknown) date) inspection unknown) (unknown) (no (unknown) (unknown) Height 5 ft 2 in (units (unknown) date) unknown) (unknown) (no (unknown) (unknown) History of (units (unk nown) date) bladder suspension unknown) procedure (unknown) (no (unknown) (unknown) History of hernia (units (unknown) date) repair unknown) (unknown) (no (unknown) (unknown) History of (units (unk nown) date) rectocele unknown) (unknown) (no (unknown) (unknown) who (units (un known) date) accompanies unknown) patient answers many of the questions as he has the (unknown) (no (unknown) (unknown) Hypertension (units (u nknown) date) unknown) (unknown) (no (unknown) (unknown) Incarcerated (units (u nknown) date) hernia unknown) (unknown) (no (unknown) (unknown) Intake Note: (units (u nknown) date) unknown) (unknown) (no (unknown) (unknown) Intake performed (units (unknown) date) by: Ange Garg unknown) (unknown) (no (unknown) (unknown) Intake (units (unkno wn) date) unknown) (unknown) (no (unknown) (unknown) Intake- Clincial (units (unknown) date) Staff unknown) (unknown) (no (unknown) (unknown) Iodinated Contrast (units (unknown) date) Media [Iodinated unknown) Contrast- Oral and IV Dye] Allergy (Verified (unknown) (no (unknown) (unknown) L.acidophil-L.case (units (unknown) date) i-B.bifid-B.longum unknown) -FOS 2 billion cell-50 mg capsule (Probiotic (unknown) (no (unknown) (unknown) LBBB (left bundle (units (unknown) date) branch block) unknown) (unknown) (no (unknown) (unknown) Last Menstural (units (unknown) date) Cycle + Details unknown) (unknown) (no (unknown) (unknown) Loc: [facility] (units (unkno wn) date) unknown) (unknown) (no (unknown) (unknown) Medical History (units (unknown) date) (Updated 09/07/22 unknown) @ 15:29 by Sai Ramirez MD) (unknown) (no (unknown) (unknown) Medications (units (un known) date) unknown) (unknown) (no (unknown) (unknown) Mental Status: (units (unknown) date) mental status unknown) grossly normal (unknown) (no (unknown) (unknown) Most recently in (units (unknown) date) the past couple of unknown) months patient has now developed fecal (unknown) (no (unknown) (unknown) 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 (u nknown) date) disease unknown) (unknown) (no (unknown) (unknown) Nutritional (units (un known) date) Appearance: unknown) average body habitus (unknown) (no (unknown) (unknown) Onset: 07/19/17 (units (unknown) date) unknown) (unknown) (no (unknown) (unknown) Orders: (units (unkno wn) date) unknown) (unknown) (no (unknown) (unknown) Other Menstrual (units (unknown) date) Period: unknown) Postmenopausal (hysterectomy) (unknown) (no (unknown) (unknown) Other: (units (unkno wn) date) unknown) (unknown) (no (unknown) (unknown) PFSH (units (unkno wn) date) unknown) (unknown) (no (unknown) (unknown) PO DAILY 09/01/18 (units (unknown) date) [History Confirmed unknown) 05/15/20] (unknown) (no (unknown) (unknown) Patient has (units (un known) date) extreme tenderness unknown) in the vagina both laterally and at the cuff as (unknown) (no (unknown) (unknown) Patient has (units (un known) date) longstanding unknown) urinary incontinence most recently with overflow. 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 (unknown) (no (unknown) (unknown) Pelvic Support: (units (unknown) date) no cystocele, no unknown) rectocele, no enterocele and apex supported (unknown) (no (unknown) (unknown) Plan (units (unkno wn) date) unknown) (unknown) (no (unknown) (unknown) Position Sitting (units (unknown) date) unknown) (unknown) (no (unknown) (unknown) Psych (units (unkno wn) date) unknown) (unknown) (no (unknown) (unknown) Pt also had (units (un known) date) urethra debulking unknown) surgery (unknown) (no (unknown) (unknown) Qualifiers: (units (un known) date) unknown) (unknown) (no (unknown) (unknown) Reason For Visit (units (unknown) date) unknown) (unknown) (no (unknown) (unknown) Recto-Vaginal: (units (unknown) date) other (Markedly unknown) diminished rectal sphincter tone) (unknown) (no (unknown) (unknown) Referral (units (unkno wn) date) Gynecology N39.46 unknown) - Mixed incontinence, N39.490 - Overflow (unknown) (no (unknown) (unknown) Referral to (units (unknown) date) unknown) (unknown) (no (unknown) (unknown) Referrals (units (unkn own) date) unknown) (unknown) (no (unknown) (unknown) Relief) 50 mcg (units ( unknown) date) intranasal DAILY unknown) PRN Allergy Symptoms 11/30/17 [History Confirmed (unknown) (no (unknown) (unknown) Renal (units (unkno wn) date) insufficiency unknown) (unknown) (no (unknown) (unknown) Right upper (units (un known) date) quadrant pain unknown) (unknown) (no (unknown) (unknown) S/P hernia repair (units (unknown) date) unknown) (unknown) (no (unknown) (unknown) Signed By: (units (unk nown) date) unknown) (unknown) (no (unknown) (unknown) Smoking Status: (units (unknown) date) Former smoker unknown) (unknown) (no (unknown) (unknown) Social History (units (unknown) date) unknown) (unknown) (no (unknown) (unknown) Speculum Exam - (units (unknown) date) Vagina: vagina unknown) atrophic (unknown) (no (unknown) (unknown) Status: Acute (units ( unknown) date) unknown) (unknown) (no (unknown) (unknown) Stress-induced (units (unknown) date) cardiomyopathy unknown) (unknown) (no (unknown) (unknown) Surgery in 2019 (units (unknown) date) prolapse repair unknown) and 2020 (unknown) (no (unknown) (unknown) Surgical History (units (unknown) date) (Reviewed 05/30/20 unknown) @ 12:14 by Cinthia Dorantes MD) (unknown) (no (unknown) (unknown) This note may (units ( unknown) date) have been all or unknown) partially generated using voice recognition (unknown) (no (unknown) (unknown) Time Coding (units (un known) date) Minutes Spent: unknown) (must be on same date of service/appointmen t) (unknown) (no (unknown) (unknown) Time Spent (units (unk nown) date) unknown) (unknown) (no (unknown) (unknown) Tobacco + (units (unkn own) date) Substance Use unknown) (unknown) (no (unknown) (unknown) Tobacco Status (units (unknown) date) unknown) (unknown) (no (unknown) (unknown) Total Time: 60 (units (unknown) date) unknown) (unknown) (no (unknown) (unknown) 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) (unknown) (no (unknown) (unknown) Urethra: normal (units (unknown) date) appearance of the unknown) urethra (unknown) (no (unknown) (unknown) 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 (unknown) (no (unknown) (unknown) Vitals (units (unkno wn) date) unknown) (unknown) (no (unknown) (unknown) Wants to know if (units (unknown) date) the prolapse has unknown) returned (unknown) (no (unknown) (unknown) Weight 111 lb (units ( unknown) date) unknown) (unknown) (no (unknown) (unknown) after InterStim (units (unknown) date) and other unknown) therapies (unknown) (no (unknown) (unknown) alcohol intake: (units (unknown) date) current unknown) (unknown) (no (unknown) (unknown) alpha lipoic acid (units (unknown) date) 600 mg capsule 600 unknown) mg PO DAILY 04/18/20 [History Confirmed (unknown) (no (unknown) (unknown) and she is been (units (unknown) date) to physical unknown) therapy that does pelvic floor specialty 1 of her (unknown) (no (unknown) (unknown) ascorbic acid (units ( unknown) date) (vitamin C) 1,000 unknown) mg tablet 1 g PO DAILY 09/01/18 [History (unknown) (no (unknown) (unknown) aspirin 81 mg (units ( unknown) date) tablet,delayed unknown) release 81 mg PO DAILY 09/01/18 [History Confirmed (unknown) (no (unknown) (unknown) atorvastatin (units (u nknown) date) Adverse Reaction unknown) (Verified 09/07/22 13:30) (unknown) (no (unknown) (unknown) caregiver/support (units (unknown) date) person: Yes (son) unknown) (unknown) (no (unknown) (unknown) cholecalciferol (units (unknown) date) (vitamin D3) 25 unknown) mcg (1,000 unit) tablet (Vitamin D3) 1,000 unit (unknown) (no (unknown) (unknown) clopidogrel 75 mg (units (unknown) date) tablet (Plavix) 75 unknown) mg PO DAILY 09/07/22 [History Confirmed (unknown) (no (unknown) (unknown) empagliflozin 10 (units (unknown) date) mg tablet unknown) (Jardiance) 10 mg PO DAILY 09/07/22 [History (unknown) (no (unknown) (unknown) ezetimibe 10 mg (units (unknown) date) tablet 10 mg PO unknown) DAILY 09/07/22 [History Confirmed 09/07/22] (unknown) (no (unknown) (unknown) fluticasone (units (un known) date) propionate 50 unknown) mcg/actuation nasal spray,suspension (Flonase Allergy (unknown) (no (unknown) (unknown) gabapentin (units (unk nown) date) Allergy (Verified unknown) 09/07/22 13:30) (unknown) (no (unknown) (unknown) glipizide 10 mg (units (unknown) date) tablet 10 mg PO unknown) DAILY 09/07/22 [History Confirmed 09/07/22] (unknown) (no (unknown) (unknown) have occurred. If (units (unknown) date) there are any unknown) questions, please contact the Medical Records (unknown) (no (unknown) (unknown) household (units (unkn own) date) members: unknown) significant other (unknown) (no (unknown) (unknown) in October 2020 a (units (unknown) date) urethral bulking unknown) procedure in December of 2020. Most recently (unknown) (no (unknown) (unknown) incarcerated (units (u nknown) date) hernia patient unknown) also had pelvic prolapse with hysterectomy and (unknown) (no (unknown) (unknown) including 3 (units (un known) date) InterStim unknown) implants, 1 of which is still in place of prolapse repair (unknown) (no (unknown) (unknown) incontinence (units (u nknown) date) unknown) (unknown) (no (unknown) (unknown) incontinence, (units ( unknown) date) R15.9 - Full unknown) incontinence of feces (unknown) (no (unknown) (unknown) may occur. (units (unk nown) date) Occasional unknown) wrong-word or 'sound-alike' substitutions may have (unknown) (no (unknown) (unknown) metoprolol (units (unk nown) date) succinate 25 mg unknown) capsule sprinkle, ext. release 24 hr 25 mg PO DAILY (unknown) (no (unknown) (unknown) occupational (units (u nknown) date) status: previously unknown) employed (unknown) (no (unknown) (unknown) occurred due to (units (unknown) date) the inherent unknown) limitations of voice recognition software. Please (unknown) (no (unknown) (unknown) omega-3 acid ethyl (units (unknown) date) esters 1 gram unknown) capsule (Lovaza) 2 cap PO BID 11/30/17 [History (unknown) (no (unknown) (unknown) ondansetron 4 mg (units (unknown) date) disintegrating unknown) tablet 4 mg PO Q8H PRN nausea and vomiting #20 (unknown) (no (unknown) (unknown) pain over her (units ( unknown) date) ischial spines, as unknown) well as at her vaginal) (unknown) (no (unknown) (unknown) patient was told (units (unknown) date) she would her unknown) problem was due to her pelvic floor musculature (unknown) (no (unknown) (unknown) pravastatin 80 mg (units (unknown) date) tablet 80 mg PO unknown) DAILY 09/07/22 [History Confirmed 09/07/22] (unknown) (no (unknown) (unknown) prednisone (units (unk nown) date) Adverse Reaction unknown) (Severe, Verified 09/07/22 13:30) (unknown) (no (unknown) (unknown) primary (units (unkno wn) date) incontinence unknown) repair. Patient has subsequently had multiple procedures (unknown) (no (unknown) (unknown) procedures that (units (unknown) date) the patient unknown) considers was a failure (unknown) (no (unknown) (unknown) read the note (units ( unknown) date) carefully and unknown) recognize, using context, where these substitutions (unknown) (no (unknown) (unknown) see Dr. Hunt at (units (unknown) date) the same office as unknown) she had performed 1 of her previous (unknown) (no (unknown) (unknown) sertraline 50 mg (units (unknown) date) tablet 100 mg PO unknown) QPM 09/07/22 [History Confirmed 09/07/22] (unknown) (no (unknown) (unknown) severe (units (unkno wn) date) hypoglycemia unknown) (unknown) (no (unknown) (unknown) shellfish derived (units (unknown) date) Allergy (Severe, unknown) Verified 09/07/22 13:30) (unknown) (no (unknown) (unknown) software. 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 Hunt (unknown) (no (unknown) (unknown) well as at the (units (unknown) date) posterior unknown) [facility] E Result panel 6 (unknown) (no (unknown) (unknown) (no value) (units (unk nown) date) unknown) (unknown) (no (unknown) (unknown) (1) Pelvic pain (units (unknown) date) in female: unknown) (unknown) (no (unknown) (unknown) (2) Overflow (units (u nknown) date) incontinence of unknown) urine: (unknown) (no (unknown) (unknown) (3) Fecal (units (unkn own) date) incontinence: unknown) (unknown) (no (unknown) (unknown) (4) Total urinary (units (unknown) date) incontinence: unknown) (unknown) (no (unknown) (unknown) * Lex Betancur (units (u nknown) date) MD Jami, at unknown) [facility]. Patient does not wish to (unknown) (no (unknown) (unknown) 09/07/22 13:30) (units (unknown) date) unknown) (unknown) (no (unknown) (unknown) 09/07/22 (units (unkno wn) date) unknown) (unknown) (no (unknown) (unknown) 09/07/22] (units (unkn own) date) unknown) (unknown) (no (unknown) (unknown) 04/18/20 [History (units (unknown) date) Confirmed unknown) 09/07/22] (unknown) (no (unknown) (unknown) 05/15/20] (units (unkn own) date) unknown) (unknown) (no (unknown) (unknown) 13:31 (units (unkno wn) date) unknown) (unknown) (no (unknown) (unknown) 60 minutes (units (unk nown) date) unknown) (unknown) (no (unknown) (unknown) [id number] (units (unkno wn) date) unknown) (unknown) (no (unknown) (unknown) Abnormal biliary (units (unknown) date) HIDA scan unknown) (unknown) (no (unknown) (unknown) Age/Sex: 76 / F (units (unknown) date) Date of Service: unknown) (unknown) (no (unknown) (unknown) Allergies (units (unkn own) date) unknown) (unknown) (no (unknown) (unknown) [place], [place] (units ( unknown) date) [id number] unknown) (unknown) (no (unknown) (unknown) Anaphylaxis (units (un known) date) unknown) (unknown) (no (unknown) (unknown) Appearance: (units (un known) date) grossly normal unknown) (unknown) (no (unknown) (unknown) Assessment + Plan (units (unknown) date) unknown) (unknown) (no (unknown) (unknown) Atrophic (units (unkno wn) date) vulvovaginitis unknown) (unknown) (no (unknown) (unknown) Attending Dr: (units ( unknown) date) Sai Ramirez MD unknown) (unknown) (no (unknown) (unknown) Attitude: (units (unkn own) date) cooperative unknown) (unknown) (no (unknown) (unknown) BMI 20.2 (units (unkno wn) date) unknown) (unknown) (no (unknown) (unknown) BP 128/60 (units (unkn own) date) unknown) (unknown) (no (unknown) (unknown) Bimanual Exam- (units (unknown) date) Adnexa, other: unknown) apex supported (unknown) (no (unknown) (unknown) Bimanual Exam- (units (unknown) date) Vagina + Uterus: unknown) uterus absent and other (Patient has extreme (unknown) (no (unknown) (unknown) Blend) 1 - 3 cap (units (unknown) date) PO DAILY 09/01/18 unknown) [History Confirmed 05/15/20] (unknown) (no (unknown) (unknown) Blood Pressure (units (unknown) date) Location Rt unknown) brachial (unknown) (no (unknown) (unknown) 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 ( unknown) date) disease unknown) (unknown) (no (unknown) (unknown) CKD stage 3 (units (un known) date) secondary to unknown) diabetes (unknown) (no (unknown) (unknown) Cervical stenosis (units (unknown) date) of spinal canal unknown) (unknown) (no (unknown) (unknown) Cervicogenic (units (u nknown) date) headache unknown) (unknown) (no (unknown) (unknown) Characteristics (units (unknown) date) of symptom or unknown) complaint: Recurrent overflow type incontinence (unknown) (no (unknown) (unknown) Chief Complaint (units (unknown) date) unknown) (unknown) (no (unknown) (unknown) Chief Complaint: (units (unknown) date) Urinary and fecal unknown) incontinence (unknown) (no (unknown) (unknown) Chronic diarrhea (units (unknown) date) unknown) (unknown) (no (unknown) (unknown) Confirmed (units (unkn own) date) 09/07/22] unknown) (unknown) (no (unknown) (unknown) Confirmed (units (unkn own) date) 05/15/20] unknown) (unknown) (no (unknown) (unknown) Const (units (unkno wn) date) unknown) (unknown) (no (unknown) (unknown) : 1945 (units (unknown) date) Acct:[id number] unknown) (unknown) (no (unknown) (unknown) Dept at (units (unkno wn) date) . unknown) (unknown) (no (unknown) (unknown) Details: (units (unkno wn) date) unknown) (unknown) (no (unknown) (unknown) Diabetes (units (unkno wn) date) unknown) (unknown) (no (unknown) (unknown) Documented By: (units (unknown) date) Sai Ramirez MD unknown) 09/07/22 1316 (unknown) (no (unknown) (unknown) Draft (units (unkno wn) date) unknown) (unknown) (no (unknown) (unknown) Duration: Since (units (unknown) date) unknown) (unknown) (no (unknown) (unknown) Exam (units (unkno wn) date) unknown) (unknown) (no (unknown) (unknown) External Female (units (unknown) date) Exam: normal unknown) appearance of the urethra and gaping introitus (unknown) (no (unknown) (unknown) Family History (units (unknown) date) (Reviewed 05/30/20 unknown) @ 12:14 by Cinthia Dorantes MD) (unknown) (no (unknown) (unknown) Father Heart (units (u nknown) date) disease unknown) (unknown) (no (unknown) (unknown) Fecal (units (unkno wn) date) incontinence type: unknown) fecal smearing Qualified Code(s): R15.1 (unknown) (no (unknown) (unknown) Fecal smearing (units (unknown) date) unknown) (unknown) (no (unknown) (unknown) [facility]) (unknown) (no (unknown) (unknown) 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 (units (unknown) date) pt here with unknown) ongoing urinary incontinence, denies any dysuria (unknown) (no (unknown) (unknown) GERD (units (unkno wn) date) (gastroesophageal unknown) reflux disease) (unknown) (no (unknown) (unknown) GERD with (units (unkn own) date) esophagitis unknown) (unknown) (no (unknown) (unknown) (units (unkno wn) date) unknown) (unknown) (no (unknown) (unknown) General: (units (unkno wn) date) cooperative unknown) (unknown) (no (unknown) (unknown) 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) (unknown) (no (unknown) (unknown) Gynecology Visit (units (unknown) date) unknown) (unknown) (no (unknown) (unknown) H/O cardiac (units (un known) date) catheterization unknown) (unknown) (no (unknown) (unknown) H/O: hysterectomy (units (unknown) date) unknown) (unknown) (no (unknown) (unknown) HENMT (units (unkno wn) date) unknown) (unknown) (no (unknown) (unknown) HPI (units (unkno wn) date) unknown) (unknown) (no (unknown) (unknown) Head: normal to (units (unknown) date) inspection unknown) (unknown) (no (unknown) (unknown) Height 5 ft 2 in (units (unknown) date) unknown) (unknown) (no (unknown) (unknown) History of (units (unk nown) date) bladder suspension unknown) procedure (unknown) (no (unknown) (unknown) History of hernia (units (unknown) date) repair unknown) (unknown) (no (unknown) (unknown) History of (units (unk nown) date) rectocele unknown) (unknown) (no (unknown) (unknown) who (units (un known) date) accompanies unknown) patient answers many of the questions as he has the (unknown) (no (unknown) (unknown) Hypertension (units (u nknown) date) unknown) (unknown) (no (unknown) (unknown) Incarcerated (units (u nknown) date) hernia unknown) (unknown) (no (unknown) (unknown) Intake Note: (units (u nknown) date) unknown) (unknown) (no (unknown) (unknown) Intake performed (units (unknown) date) by: Ange Garg unknown) (unknown) (no (unknown) (unknown) Intake (units (unkno wn) date) unknown) (unknown) (no (unknown) (unknown) Intake- Clincial (units (unknown) date) Staff unknown) (unknown) (no (unknown) (unknown) Iodinated Contrast (units (unknown) date) Media [Iodinated unknown) Contrast- Oral and IV Dye] Allergy (Verified (unknown) (no (unknown) (unknown) L.acidophil-L.case (units (unknown) date) i-B.bifid-B.longum unknown) -FOS 2 billion cell-50 mg capsule (Probiotic (unknown) (no (unknown) (unknown) LBBB (left bundle (units (unknown) date) branch block) unknown) (unknown) (no (unknown) (unknown) Last Menstural (units (unknown) date) Cycle + Details unknown) (unknown) (no (unknown) (unknown) Loc: [facility] (units (unkno wn) date) unknown) (unknown) (no (unknown) (unknown) Medical History (units (unknown) date) (Updated 09/07/22 unknown) @ 15:29 by Sai Ramirez MD) (unknown) (no (unknown) (unknown) Medications (units (un known) date) unknown) (unknown) (no (unknown) (unknown) Mental Status: (units (unknown) date) mental status unknown) grossly normal (unknown) (no (unknown) (unknown) Most recently in (units (unknown) date) the past couple of unknown) months patient has now developed fecal (unknown) (no (unknown) (unknown) 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 (u nknown) date) disease unknown) (unknown) (no (unknown) (unknown) Nutritional (units (un known) date) Appearance: unknown) average body habitus (unknown) (no (unknown) (unknown) Onset: 07/19/17 (units (unknown) date) unknown) (unknown) (no (unknown) (unknown) Orders: (units (unkno wn) date) unknown) (unknown) (no (unknown) (unknown) Other Menstrual (units (unknown) date) Period: unknown) Postmenopausal (hysterectomy) (unknown) (no (unknown) (unknown) Other: (units (unkno wn) date) unknown) (unknown) (no (unknown) (unknown) PFSH (units (unkno wn) date) unknown) (unknown) (no (unknown) (unknown) PO DAILY 09/01/18 (units (unknown) date) [History Confirmed unknown) 05/15/20] (unknown) (no (unknown) (unknown) Patient has (units (un known) date) extreme tenderness unknown) in the vagina both laterally and at the cuff as (unknown) (no (unknown) (unknown) Patient has (units (un known) date) longstanding unknown) urinary incontinence most recently with overflow. 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 (unknown) (no (unknown) (unknown) Pelvic Support: (units (unknown) date) no cystocele, no unknown) rectocele, no enterocele and apex supported (unknown) (no (unknown) (unknown) Plan (units (unkno wn) date) unknown) (unknown) (no (unknown) (unknown) Position Sitting (units (unknown) date) unknown) (unknown) (no (unknown) (unknown) Psych (units (unkno wn) date) unknown) (unknown) (no (unknown) (unknown) Pt also had (units (un known) date) urethra debulking unknown) surgery (unknown) (no (unknown) (unknown) Qualifiers: (units (un known) date) unknown) (unknown) (no (unknown) (unknown) Reason For Visit (units (unknown) date) unknown) (unknown) (no (unknown) (unknown) Recto-Vaginal: (units (unknown) date) other (Markedly unknown) diminished rectal sphincter tone) (unknown) (no (unknown) (unknown) Referral (units (unkno wn) date) Gynecology N39.46 unknown) - Mixed incontinence, N39.490 - Overflow (unknown) (no (unknown) (unknown) Referral to (units (unknown) date) unknown) (unknown) (no (unknown) (unknown) Referrals (units (unkn own) date) unknown) (unknown) (no (unknown) (unknown) Relief) 50 mcg (units ( unknown) date) intranasal DAILY unknown) PRN Allergy Symptoms 11/30/17 [History Confirmed (unknown) (no (unknown) (unknown) Renal (units (unkno wn) date) insufficiency unknown) (unknown) (no (unknown) (unknown) Right upper (units (un known) date) quadrant pain unknown) (unknown) (no (unknown) (unknown) S/P hernia repair (units (unknown) date) unknown) (unknown) (no (unknown) (unknown) Signed By: (units (unk nown) date) unknown) (unknown) (no (unknown) (unknown) Smoking Status: (units (unknown) date) Former smoker unknown) (unknown) (no (unknown) (unknown) Social History (units (unknown) date) unknown) (unknown) (no (unknown) (unknown) Speculum Exam - (units (unknown) date) Vagina: vagina unknown) atrophic (unknown) (no (unknown) (unknown) Status: Acute (units ( unknown) date) unknown) (unknown) (no (unknown) (unknown) Stress-induced (units (unknown) date) cardiomyopathy unknown) (unknown) (no (unknown) (unknown) Surgery in 2019 (units (unknown) date) prolapse repair unknown) and 2020 (unknown) (no (unknown) (unknown) Surgical History (units (unknown) date) (Reviewed 05/30/20 unknown) @ 12:14 by Cinthia Dorantes MD) (unknown) (no (unknown) (unknown) This note may (units ( unknown) date) have been all or unknown) partially generated using voice recognition (unknown) (no (unknown) (unknown) Time Coding (units (un known) date) Minutes Spent: unknown) (must be on same date of service/appointmen t) (unknown) (no (unknown) (unknown) Time Spent (units (unk nown) date) unknown) (unknown) (no (unknown) (unknown) Tobacco + (units (unkn own) date) Substance Use unknown) (unknown) (no (unknown) (unknown) Tobacco Status (units (unknown) date) unknown) (unknown) (no (unknown) (unknown) Total Time: 60 (units (unknown) date) unknown) (unknown) (no (unknown) (unknown) 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) (unknown) (no (unknown) (unknown) Urethra: normal (units (unknown) date) appearance of the unknown) urethra (unknown) (no (unknown) (unknown) 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 (unknown) (no (unknown) (unknown) Vitals (units (unkno wn) date) unknown) (unknown) (no (unknown) (unknown) Wants to know if (units (unknown) date) the prolapse has unknown) returned (unknown) (no (unknown) (unknown) Weight 111 lb (units ( unknown) date) unknown) (unknown) (no (unknown) (unknown) after InterStim (units (unknown) date) and other unknown) therapies (unknown) (no (unknown) (unknown) alcohol intake: (units (unknown) date) current unknown) (unknown) (no (unknown) (unknown) alpha lipoic acid (units (unknown) date) 600 mg capsule 600 unknown) mg PO DAILY 04/18/20 [History Confirmed (unknown) (no (unknown) (unknown) and she is been (units (unknown) date) to physical unknown) therapy that does pelvic floor specialty 1 of her (unknown) (no (unknown) (unknown) ascorbic acid (units ( unknown) date) (vitamin C) 1,000 unknown) mg tablet 1 g PO DAILY 09/01/18 [History (unknown) (no (unknown) (unknown) aspirin 81 mg (units ( unknown) date) tablet,delayed unknown) release 81 mg PO DAILY 09/01/18 [History Confirmed (unknown) (no (unknown) (unknown) atorvastatin (units (u nknown) date) Adverse Reaction unknown) (Verified 09/07/22 13:30) (unknown) (no (unknown) (unknown) caregiver/support (units (unknown) date) person: Yes (son) unknown) (unknown) (no (unknown) (unknown) cholecalciferol (units (unknown) date) (vitamin D3) 25 unknown) mcg (1,000 unit) tablet (Vitamin D3) 1,000 unit (unknown) (no (unknown) (unknown) clopidogrel 75 mg (units (unknown) date) tablet (Plavix) 75 unknown) mg PO DAILY 09/07/22 [History Confirmed (unknown) (no (unknown) (unknown) empagliflozin 10 (units (unknown) date) mg tablet unknown) (Jardiance) 10 mg PO DAILY 09/07/22 [History (unknown) (no (unknown) (unknown) ezetimibe 10 mg (units (unknown) date) tablet 10 mg PO unknown) DAILY 09/07/22 [History Confirmed 09/07/22] (unknown) (no (unknown) (unknown) fluticasone (units (un known) date) propionate 50 unknown) mcg/actuation nasal spray,suspension (Flonase Allergy (unknown) (no (unknown) (unknown) gabapentin (units (unk nown) date) Allergy (Verified unknown) 09/07/22 13:30) (unknown) (no (unknown) (unknown) glipizide 10 mg (units (unknown) date) tablet 10 mg PO unknown) DAILY 09/07/22 [History Confirmed 09/07/22] (unknown) (no (unknown) (unknown) have occurred. If (units (unknown) date) there are any unknown) questions, please contact the Medical Records (unknown) (no (unknown) (unknown) household (units (unkn own) date) members: unknown) significant other (unknown) (no (unknown) (unknown) in October 2020 a (units (unknown) date) urethral bulking unknown) procedure in December of 2020. Most recently (unknown) (no (unknown) (unknown) incarcerated (units (u nknown) date) hernia patient unknown) also had pelvic prolapse with hysterectomy and (unknown) (no (unknown) (unknown) including 3 (units (un known) date) InterStim unknown) implants, 1 of which is still in place of prolapse repair (unknown) (no (unknown) (unknown) incontinence (units (u nknown) date) unknown) (unknown) (no (unknown) (unknown) incontinence, (units ( unknown) date) R15.9 - Full unknown) incontinence of feces (unknown) (no (unknown) (unknown) may occur. (units (unk nown) date) Occasional unknown) wrong-word or 'sound-alike' substitutions may have (unknown) (no (unknown) (unknown) metoprolol (units (unk nown) date) succinate 25 mg unknown) capsule sprinkle, ext. release 24 hr 25 mg PO DAILY (unknown) (no (unknown) (unknown) occupational (units (u nknown) date) status: previously unknown) employed (unknown) (no (unknown) (unknown) occurred due to (units (unknown) date) the inherent unknown) limitations of voice recognition software. Please (unknown) (no (unknown) (unknown) omega-3 acid ethyl (units (unknown) date) esters 1 gram unknown) capsule (Lovaza) 2 cap PO BID 11/30/17 [History (unknown) (no (unknown) (unknown) ondansetron 4 mg (units (unknown) date) disintegrating unknown) tablet 4 mg PO Q8H PRN nausea and vomiting #20 (unknown) (no (unknown) (unknown) pain over her (units ( unknown) date) ischial spines, as unknown) well as at her vaginal) (unknown) (no (unknown) (unknown) patient was told (units (unknown) date) she would her unknown) problem was due to her pelvic floor musculature (unknown) (no (unknown) (unknown) pravastatin 80 mg (units (unknown) date) tablet 80 mg PO unknown) DAILY 09/07/22 [History Confirmed 09/07/22] (unknown) (no (unknown) (unknown) prednisone (units (unk nown) date) Adverse Reaction unknown) (Severe, Verified 09/07/22 13:30) (unknown) (no (unknown) (unknown) primary (units (unkno wn) date) incontinence unknown) repair. Patient has subsequently had multiple procedures (unknown) (no (unknown) (unknown) procedures that (units (unknown) date) the patient unknown) considers was a failure (unknown) (no (unknown) (unknown) read the note (units ( unknown) date) carefully and unknown) recognize, using context, where these substitutions (unknown) (no (unknown) (unknown) see Dr. Hunt at (units (unknown) date) the same office as unknown) she had performed 1 of her previous (unknown) (no (unknown) (unknown) sertraline 50 mg (units (unknown) date) tablet 100 mg PO unknown) QPM 09/07/22 [History Confirmed 09/07/22] (unknown) (no (unknown) (unknown) severe (units (unkno wn) date) hypoglycemia unknown) (unknown) (no (unknown) (unknown) shellfish derived (units (unknown) date) Allergy (Severe, unknown) Verified 09/07/22 13:30) (unknown) (no (unknown) (unknown) software. 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 Hunt (unknown) (no (unknown) (unknown) well as at the (units (unknown) date) posterior unknown) [facility] E Result panel 7 (unknown) (no (unknown) (unknown) (no value) (units (unk nown) date) unknown) (unknown) (no (unknown) (unknown) (1) Pelvic pain (units (unknown) date) in female: unknown) (unknown) (no (unknown) (unknown) (2) Overflow (units (u nknown) date) incontinence of unknown) urine: (unknown) (no (unknown) (unknown) (3) Fecal (units (unkn own) date) incontinence: unknown) (unknown) (no (unknown) (unknown) (4) Total urinary (units (unknown) date) incontinence: unknown) (unknown) (no (unknown) (unknown) * Lex Betancur (units (u nknown) date) MD Jami, at unknown) [facility]. Patient does not wish to (unknown) (no (unknown) (unknown) 09/07/22 13:30) (units (unknown) date) unknown) (unknown) (no (unknown) (unknown) 09/07/22 1622 (units ( unknown) date) unknown) (unknown) (no (unknown) (unknown) 09/07/22 (units (unkno wn) date) unknown) (unknown) (no (unknown) (unknown) 09/07/22] (units (unkn own) date) unknown) (unknown) (no (unknown) (unknown) 04/18/20 [History (units (unknown) date) Confirmed unknown) 09/07/22] (unknown) (no (unknown) (unknown) 05/15/20] (units (unkn own) date) unknown) (unknown) (no (unknown) (unknown) 13:31 (units (unkno wn) date) unknown) (unknown) (no (unknown) (unknown) 60 minutes (units (unk nown) date) unknown) (unknown) (no (unknown) (unknown) [id number] (units (unkno wn) date) unknown) (unknown) (no (unknown) (unknown) Abnormal biliary (units (unknown) date) HIDA scan unknown) (unknown) (no (unknown) (unknown) Age/Sex: 76 / F (units (unknown) date) Date of Service: unknown) (unknown) (no (unknown) (unknown) Allergies (units (unkn own) date) unknown) (unknown) (no (unknown) (unknown) [place], [place] (units ( unknown) date) [id number] unknown) (unknown) (no (unknown) (unknown) Anaphylaxis (units (un known) date) unknown) (unknown) (no (unknown) (unknown) Appearance: (units (un known) date) grossly normal unknown) (unknown) (no (unknown) (unknown) Assessment + Plan (units (unknown) date) unknown) (unknown) (no (unknown) (unknown) Atrophic (units (unkno wn) date) vulvovaginitis unknown) (unknown) (no (unknown) (unknown) Attending Dr: (units ( unknown) date) Sai Ramirez MD unknown) (unknown) (no (unknown) (unknown) Attitude: (units (unkn own) date) cooperative unknown) (unknown) (no (unknown) (unknown) BMI 20.2 (units (unkno wn) date) unknown) (unknown) (no (unknown) (unknown) BP 128/60 (units (unkn own) date) unknown) (unknown) (no (unknown) (unknown) Bimanual Exam- (units (unknown) date) Adnexa, other: unknown) apex supported (unknown) (no (unknown) (unknown) Bimanual Exam- (units (unknown) date) Vagina + Uterus: unknown) uterus absent and other (Patient has extreme (unknown) (no (unknown) (unknown) Blend) 1 - 3 cap (units (unknown) date) PO DAILY 09/01/18 unknown) [History Confirmed 05/15/20] (unknown) (no (unknown) (unknown) Blood Pressure (units (unknown) date) Location Rt unknown) brachial (unknown) (no (unknown) (unknown) 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 ( unknown) date) disease unknown) (unknown) (no (unknown) (unknown) CKD stage 3 (units (un known) date) secondary to unknown) diabetes (unknown) (no (unknown) (unknown) Cervical stenosis (units (unknown) date) of spinal canal unknown) (unknown) (no (unknown) (unknown) Cervicogenic (units (u nknown) date) headache unknown) (unknown) (no (unknown) (unknown) Characteristics (units (unknown) date) of symptom or unknown) complaint: Recurrent overflow type incontinence (unknown) (no (unknown) (unknown) Chief Complaint (units (unknown) date) unknown) (unknown) (no (unknown) (unknown) Chief Complaint: (units (unknown) date) Urinary and fecal unknown) incontinence (unknown) (no (unknown) (unknown) Chronic diarrhea (units (unknown) date) unknown) (unknown) (no (unknown) (unknown) Confirmed (units (unkn own) date) 09/07/22] unknown) (unknown) (no (unknown) (unknown) Confirmed (units (unkn own) date) 05/15/20] unknown) (unknown) (no (unknown) (unknown) Const (units (unkno wn) date) unknown) (unknown) (no (unknown) (unknown) : 1945 (units (unknown) date) Acct:[id number] unknown) (unknown) (no (unknown) (unknown) Dept at (units (unkno wn) date) . unknown) (unknown) (no (unknown) (unknown) Details: (units (unkno wn) date) unknown) (unknown) (no (unknown) (unknown) Diabetes (units (unkno wn) date) unknown) (unknown) (no (unknown) (unknown) Documented By: (units (unknown) date) Sai Ramirez MD unknown) 09/07/22 1316 (unknown) (no (unknown) (unknown) Duration: Since (units (unknown) date) unknown) (unknown) (no (unknown) (unknown) Exam (units (unkno wn) date) unknown) (unknown) (no (unknown) (unknown) External Female (units (unknown) date) Exam: normal unknown) appearance of the urethra and gaping introitus (unknown) (no (unknown) (unknown) Family History (units (unknown) date) (Reviewed 05/30/20 unknown) @ 12:14 by Cinthia Dorantes MD) (unknown) (no (unknown) (unknown) Father Heart (units (u nknown) date) disease unknown) (unknown) (no (unknown) (unknown) Fecal (units (unkno wn) date) incontinence type: unknown) fecal smearing Qualified Code(s): R15.1 (unknown) (no (unknown) (unknown) Fecal smearing (units (unknown) date) unknown) (unknown) (no (unknown) (unknown) [facility]) (unknown) (no (unknown) (unknown) 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 (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 (unknown) date) pt here with unknown) ongoing urinary incontinence, denies any dysuria (unknown) (no (unknown) (unknown) GERD (units (unkno wn) date) (gastroesophageal unknown) reflux disease) (unknown) (no (unknown) (unknown) GERD with (units (unkn own) date) esophagitis unknown) (unknown) (no (unknown) (unknown) (units (unkno wn) date) unknown) (unknown) (no (unknown) (unknown) General: (units (unkno wn) date) cooperative unknown) (unknown) (no (unknown) (unknown) 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) (unknown) (no (unknown) (unknown) Gynecology Visit (units (unknown) date) unknown) (unknown) (no (unknown) (unknown) H/O cardiac (units (un known) date) catheterization unknown) (unknown) (no (unknown) (unknown) H/O: hysterectomy (units (unknown) date) unknown) (unknown) (no (unknown) (unknown) HENMT (units (unkno wn) date) unknown) (unknown) (no (unknown) (unknown) HPI (units (unkno wn) date) unknown) (unknown) (no (unknown) (unknown) Head: normal to (units (unknown) date) inspection unknown) (unknown) (no (unknown) (unknown) Height 5 ft 2 in (units (unknown) date) unknown) (unknown) (no (unknown) (unknown) History of (units (unk nown) date) bladder suspension unknown) procedure (unknown) (no (unknown) (unknown) History of hernia (units (unknown) date) repair unknown) (unknown) (no (unknown) (unknown) History of (units (unk nown) date) rectocele unknown) (unknown) (no (unknown) (unknown) who (units (un known) date) accompanies unknown) patient answers many of the questions as he has the (unknown) (no (unknown) (unknown) Hypertension (units (u nknown) date) unknown) (unknown) (no (unknown) (unknown) Incarcerated (units (u nknown) date) hernia unknown) (unknown) (no (unknown) (unknown) Intake Note: (units (u nknown) date) unknown) (unknown) (no (unknown) (unknown) Intake performed (units (unknown) date) by: Ange Garg unknown) (unknown) (no (unknown) (unknown) Intake (units (unkno wn) date) unknown) (unknown) (no (unknown) (unknown) Intake- Clincial (units (unknown) date) Staff unknown) (unknown) (no (unknown) (unknown) Iodinated Contrast (units (unknown) date) Media [Iodinated unknown) Contrast- Oral and IV Dye] Allergy (Verified (unknown) (no (unknown) (unknown) L.acidophil-L.case (units (unknown) date) i-B.bifid-B.longum unknown) -FOS 2 billion cell-50 mg capsule (Probiotic (unknown) (no (unknown) (unknown) LBBB (left bundle (units (unknown) date) branch block) unknown) (unknown) (no (unknown) (unknown) Last Menstural (units (unknown) date) Cycle + Details unknown) (unknown) (no (unknown) (unknown) Loc: [facility] (units (unkno wn) date) unknown) (unknown) (no (unknown) (unknown) Medical History (units (unknown) date) (Updated 09/07/22 unknown) @ 15:29 by Sai Ramirez MD) (unknown) (no (unknown) (unknown) Medications (units (un known) date) unknown) (unknown) (no (unknown) (unknown) Mental Status: (units (unknown) date) mental status unknown) grossly normal (unknown) (no (unknown) (unknown) Most recently in (units (unknown) date) the past couple of unknown) months patient has now developed fecal (unknown) (no (unknown) (unknown) 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 (u nknown) date) disease unknown) (unknown) (no (unknown) (unknown) Nutritional (units (un known) date) Appearance: unknown) average body habitus (unknown) (no (unknown) (unknown) Onset: 07/19/17 (units (unknown) date) unknown) (unknown) (no (unknown) (unknown) Orders: (units (unkno wn) date) unknown) (unknown) (no (unknown) (unknown) Other Menstrual (units (unknown) date) Period: unknown) Postmenopausal (hysterectomy) (unknown) (no (unknown) (unknown) Other: (units (unkno wn) date) unknown) (unknown) (no (unknown) (unknown) PFSH (units (unkno wn) date) unknown) (unknown) (no (unknown) (unknown) PO DAILY 09/01/18 (units (unknown) date) [History Confirmed unknown) 05/15/20] (unknown) (no (unknown) (unknown) Patient has (units (un known) date) extreme tenderness unknown) in the vagina both laterally and at the cuff as (unknown) (no (unknown) (unknown) Patient has (units (un known) date) longstanding unknown) urinary incontinence most recently with overflow. (unknown) (no (unknown) (unknown) Patient's pelvic (units (unknown) date) problems began in unknown) 2017 when she had a emergency repair of a (unknown) (no (unknown) (unknown) Patient: (units (unkno wn) date) Keli Hickman Tonja MR#: 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 (unknown) (no (unknown) (unknown) Pelvic Support: (units (unknown) date) no cystocele, no unknown) rectocele, no enterocele and apex supported (unknown) (no (unknown) (unknown) Plan (units (unkno wn) date) unknown) (unknown) (no (unknown) (unknown) Position Sitting (units (unknown) date) unknown) (unknown) (no (unknown) (unknown) Psych (units (unkno wn) date) unknown) (unknown) (no (unknown) (unknown) Pt also had (units (un known) date) urethra debulking unknown) surgery (unknown) (no (unknown) (unknown) Qualifiers: (units (un known) date) unknown) (unknown) (no (unknown) (unknown) Reason For Visit (units (unknown) date) unknown) (unknown) (no (unknown) (unknown) Recto-Vaginal: (units (unknown) date) other (Markedly unknown) diminished rectal sphincter tone) (unknown) (no (unknown) (unknown) Referral (units (unkno wn) date) Gynecology N39.46 unknown) - Mixed incontinence, N39.490 - Overflow (unknown) (no (unknown) (unknown) Referral to (units (unknown) date) unknown) (unknown) (no (unknown) (unknown) Referrals (units (unkn own) date) unknown) (unknown) (no (unknown) (unknown) Relief) 50 mcg (units ( unknown) date) intranasal DAILY unknown) PRN Allergy Symptoms 11/30/17 [History Confirmed (unknown) (no (unknown) (unknown) Renal (units (unkno wn) date) insufficiency unknown) (unknown) (no (unknown) (unknown) Right upper (units (un known) date) quadrant pain unknown) (unknown) (no (unknown) (unknown) S/P hernia repair (units (unknown) date) unknown) (unknown) (no (unknown) (unknown) Signed By: (units (unk nown) date) <Electronically unknown) signed by Sai Ramirez MD> (unknown) (no (unknown) (unknown) Signed (units (unkno wn) date) unknown) (unknown) (no (unknown) (unknown) Smoking Status: (units (unknown) date) Former smoker unknown) (unknown) (no (unknown) (unknown) Social History (units (unknown) date) unknown) (unknown) (no (unknown) (unknown) Speculum Exam - (units (unknown) date) Vagina: vagina unknown) atrophic (unknown) (no (unknown) (unknown) Status: Acute (units ( unknown) date) unknown) (unknown) (no (unknown) (unknown) Stress-induced (units (unknown) date) cardiomyopathy unknown) (unknown) (no (unknown) (unknown) Surgery in 2019 (units (unknown) date) prolapse repair unknown) and 2020 (unknown) (no (unknown) (unknown) Surgical History (units (unknown) date) (Reviewed 05/30/20 unknown) @ 12:14 by Cinthia Dorantes MD) (unknown) (no (unknown) (unknown) This note may (units ( unknown) date) have been all or unknown) partially generated using voice recognition (unknown) (no (unknown) (unknown) Time Coding (units (un known) date) Minutes Spent: unknown) (must be on same date of service/appointmen t) (unknown) (no (unknown) (unknown) Time Spent (units (unk nown) date) unknown) (unknown) (no (unknown) (unknown) Tobacco + (units (unkn own) date) Substance Use unknown) (unknown) (no (unknown) (unknown) Tobacco Status (units (unknown) date) unknown) (unknown) (no (unknown) (unknown) Total Time: 60 (units (unknown) date) unknown) (unknown) (no (unknown) (unknown) 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) (unknown) (no (unknown) (unknown) Urethra: normal (units (unknown) date) appearance of the unknown) urethra (unknown) (no (unknown) (unknown) 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 (unknown) (no (unknown) (unknown) Vitals (units (unkno wn) date) unknown) (unknown) (no (unknown) (unknown) Wants to know if (units (unknown) date) the prolapse has unknown) returned (unknown) (no (unknown) (unknown) Weight 111 lb (units ( unknown) date) unknown) (unknown) (no (unknown) (unknown) after InterStim (units (unknown) date) and other unknown) therapies (unknown) (no (unknown) (unknown) alcohol intake: (units (unknown) date) current unknown) (unknown) (no (unknown) (unknown) alpha lipoic acid (units (unknown) date) 600 mg capsule 600 unknown) mg PO DAILY 04/18/20 [History Confirmed (unknown) (no (unknown) (unknown) and she is been (units (unknown) date) to physical unknown) therapy that does pelvic floor [facility] 1 of her (unknown) (no (unknown) (unknown) ascorbic acid (units ( unknown) date) (vitamin C) 1,000 unknown) mg tablet 1 g PO DAILY 09/01/18 [History (unknown) (no (unknown) (unknown) aspirin 81 mg (units ( unknown) date) tablet,delayed unknown) release 81 mg PO DAILY 09/01/18 [History Confirmed (unknown) (no (unknown) (unknown) atorvastatin (units (u nknown) date) Adverse Reaction unknown) (Verified 09/07/22 13:30) (unknown) (no (unknown) (unknown) caregiver/support (units (unknown) date) person: Yes (son) unknown) (unknown) (no (unknown) (unknown) cholecalciferol (units (unknown) date) (vitamin D3) 25 unknown) mcg (1,000 unit) tablet (Vitamin D3) 1,000 unit (unknown) (no (unknown) (unknown) clopidogrel 75 mg (units (unknown) date) tablet (Plavix) 75 unknown) mg PO DAILY 09/07/22 [History Confirmed (unknown) (no (unknown) (unknown) empagliflozin 10 (units (unknown) date) mg tablet unknown) (Jardiance) 10 mg PO DAILY 09/07/22 [History (unknown) (no (unknown) (unknown) ezetimibe 10 mg (units (unknown) date) tablet 10 mg PO unknown) DAILY 09/07/22 [History Confirmed 09/07/22] (unknown) (no (unknown) (unknown) fluticasone (units (un known) date) propionate 50 unknown) mcg/actuation nasal spray,suspension (Flonase Allergy (unknown) (no (unknown) (unknown) gabapentin (units (unk nown) date) Allergy (Verified unknown) 09/07/22 13:30) (unknown) (no (unknown) (unknown) glipizide 10 mg (units (unknown) date) tablet 10 mg PO unknown) DAILY 09/07/22 [History Confirmed 09/07/22] (unknown) (no (unknown) (unknown) have occurred. If (units (unknown) date) there are any unknown) questions, please contact the Medical Records (unknown) (no (unknown) (unknown) household (units (unkn own) date) members: unknown) significant other (unknown) (no (unknown) (unknown) in October 2020 a (units (unknown) date) urethral bulking unknown) procedure in December of 2020. Most recently (unknown) (no (unknown) (unknown) incarcerated (units (u nknown) date) hernia patient unknown) also had pelvic prolapse with hysterectomy and (unknown) (no (unknown) (unknown) including 3 (units (un known) date) InterStim unknown) implants, 1 of which is still in place of prolapse repair (unknown) (no (unknown) (unknown) incontinence (units (u nknown) date) unknown) (unknown) (no (unknown) (unknown) incontinence, (units ( unknown) date) R15.9 - Full unknown) incontinence of feces (unknown) (no (unknown) (unknown) may occur. (units (unk nown) date) Occasional unknown) wrong-word or 'sound-alike' substitutions may have (unknown) (no (unknown) (unknown) metoprolol (units (unk nown) date) succinate 25 mg unknown) capsule sprinkle, ext. release 24 hr 25 mg PO DAILY (unknown) (no (unknown) (unknown) occupational (units (u nknown) date) status: previously unknown) employed (unknown) (no (unknown) (unknown) occurred due to (units (unknown) date) the inherent unknown) limitations of voice recognition software. Please (unknown) (no (unknown) (unknown) omega-3 acid ethyl (units (unknown) date) esters 1 gram unknown) capsule (Lovaza) 2 cap PO BID 11/30/17 [History (unknown) (no (unknown) (unknown) ondansetron 4 mg (units (unknown) date) disintegrating unknown) tablet 4 mg PO Q8H PRN nausea and vomiting #20 (unknown) (no (unknown) (unknown) pain over her (units ( unknown) date) ischial spines, as unknown) well as at her vaginal) (unknown) (no (unknown) (unknown) patient was told (units (unknown) date) she would her unknown) problem was due to her pelvic floor musculature (unknown) (no (unknown) (unknown) pravastatin 80 mg (units (unknown) date) tablet 80 mg PO unknown) DAILY 09/07/22 [History Confirmed 09/07/22] (unknown) (no (unknown) (unknown) prednisone (units (unk nown) date) Adverse Reaction unknown) (Severe, Verified 09/07/22 13:30) (unknown) (no (unknown) (unknown) primary (units (unkno wn) date) incontinence unknown) repair. Patient has subsequently had multiple procedures (unknown) (no (unknown) (unknown) procedures that (units (unknown) date) the patient unknown) considers was a failure (unknown) (no (unknown) (unknown) read the note (units ( unknown) date) carefully and unknown) recognize, using context, where these substitutions (unknown) (no (unknown) (unknown) see Dr. Hunt at (units (unknown) date) the same office as unknown) she had performed 1 of her previous (unknown) (no (unknown) (unknown) sertraline 50 mg (units (unknown) date) tablet 100 mg PO unknown) QPM 09/07/22 [History Confirmed 09/07/22] (unknown) (no (unknown) (unknown) severe (units (unkno wn) date) hypoglycemia unknown) (unknown) (no (unknown) (unknown) shellfish derived (units (unknown) date) Allergy (Severe, unknown) Verified 09/07/22 13:30) (unknown) (no (unknown) (unknown) software. 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 Hunt (unknown) (no (unknown) (unknown) well as at the (units (unknown) date) posterior unknown) [facility] E Result panel 8 (unknown) (no (unknown) (unknown) (no value) (units (unk nown) date) unknown) (unknown) (no (unknown) (unknown) +---------+ (units (un known) date) [phone] +--------- unknown) (unknown) (no (unknown) (unknown) +---------+ (units (un known) date) Hospital +--------- unknown) (unknown) (no (unknown) (unknown) + (units (unknown) date) unknown) --- (unknown) (no (unknown) (unknown) 09/10/22 (units (unkno wn) date) unknown) (unknown) (no (unknown) (unknown) 1) Normal left (units (unknown) date) ventricular size unknown) and thickness with mildly reduced systolic (unknown) (no (unknown) (unknown) [address] (units (unknown) date) unknown) (unknown) (no (unknown) (unknown) 2) Normal right (units (unknown) date) ventricular size unknown) and function. (unknown) (no (unknown) (unknown) 3) No significant (units (unknown) date) valvular unknown) abnormalities. (unknown) (no (unknown) (unknown) [id number] (units (unkno wn) date) unknown) (unknown) (no (unknown) (unknown) 4) Compared to the (units (unknown) date) Echo done unknown) 08/30/2020, LVEF has decreased slightly on this (unknown) (no (unknown) (unknown) : : [address] (units (unknown) date) : : unknown) (unknown) (no (unknown) (unknown) : : [id number] : : (units ( unknown) date) unknown) (unknown) (no (unknown) (unknown) : : [place], [place] (units (unknown) date) : : unknown) (unknown) (no (unknown) (unknown) : : Phone: [phone] (units (unknown) date) : unknown) (unknown) (no (unknown) (unknown) :Account #: (units (un known) date) [id number] Gender: unknown) Female BSA: 1.5 m2 : (unknown) (no (unknown) (unknown) :: 1945 (units (unknown) date) Age: 76 yrs BP: unknown) 156/89 mmHg: (unknown) (no (unknown) (unknown) :Hospital MRN #: (units (unknown) date) [id number] unknown) ReadingLocation: Weight: 109 lb : (unknown) (no (unknown) (unknown) :Agnieszka Rucker (units (u nknown) date) Performed By: unknown) Kayla Maldonado : (unknown) (no (unknown) (unknown) :Name: LALO, (units ( unknown) date) KELI Evangelista Study Date: unknown) 09/10/2022 Height: 62 in : (unknown) (no (unknown) (unknown) :Ordering (units (unkn own) date) Physician: Judah : unknown) (unknown) (no (unknown) (unknown) :Reason For Study: (units (unknown) date) Nonischemic unknown) cardiomyopathy : (unknown) (no (unknown) (unknown) :Referring: (units (un known) date) JUDAH RUCKER : unknown) (unknown) (no (unknown) (unknown) sev ratio: 0.68 (units (unknown) date) unknown) (unknown) (no (unknown) (unknown) AV VR_phl: 0.76 MV (units (unknown) date) P1/2t-pr_phl: 89.0 unknown) msec (unknown) (no (unknown) (unknown) ISABEL indexed to BSA (units (unknown) date) (cm2/m2): 1.1 unknown) (unknown) (no (unknown) (unknown) ISABEL(VTI)/BSA_phl: (units (unknown) date) 1.1 unknown) (unknown) (no (unknown) (unknown) Accession Number: (units (unknown) date) [id number] unknown) (unknown) (no (unknown) (unknown) Age/Sex: 76 / F (units (unknown) date) Date of Service: unknown) (unknown) (no (unknown) (unknown) [place], [place] (units ( unknown) date) [id number] unknown) (unknown) (no (unknown) (unknown) Ao V2 VTI: 32.6 cm (units (unknown) date) ISABEL(V,D): 1.7 cm2 unknown) (unknown) (no (unknown) (unknown) Ao V2 max: 137.0 (units (unknown) date) cm/sec LVOT Max unknown) Ed: 104.0 cm/sec (unknown) (no (unknown) (unknown) Ao V2 mean: 102.0 (units (unknown) date) cm/sec LV V1 max unknown) P.3 mmHg (unknown) (no (unknown) (unknown) Ao max P.0 (units (unknown) date) mmHg LV V1 VTI: unknown) 22.3 cm (unknown) (no (unknown) (unknown) Ao mean P.0 (units (unknown) date) mmHg ISABEL(I,D): 1.6 unknown) cm2 (unknown) (no (unknown) (unknown) Aortic Valve: (units ( unknown) date) There is mild unknown) aortic valve sclerosis. The aortic valve is (unknown) (no (unknown) (unknown) Atria: The left (units (unknown) date) atrial size is unknown) normal. Right atrial size is normal. There is (unknown) (no (unknown) (unknown) : 1945 (units (unknown) date) Acct:[id number] unknown) (unknown) (no (unknown) (unknown) Doppler (units (unkno wn) date) Measurements + unknown) Calculations (unknown) (no (unknown) (unknown) E/E' lat: 15.4 (units (unknown) date) unknown) (unknown) (no (unknown) (unknown) E/E' med: 28.5 PA (units (unknown) date) mean P.0 mmHg unknown) (unknown) (no (unknown) (unknown) E/e' average: 21.9 (units (unknown) date) unknown) (unknown) (no (unknown) (unknown) EPSS: 0.50 cm (units ( unknown) date) unknown) (unknown) (no (unknown) (unknown) Echocardiogram (units (unknown) date) Report unknown) (unknown) (no (unknown) (unknown) Echocardiography (units (unknown) date) Report unknown) (unknown) (no (unknown) (unknown) Electronically (units (unknown) date) signed by: Judah unknown) Agnieszka Rucker on 09/10/2022 (unknown) (no (unknown) (unknown) FS: 19.4 % asc (units (unknown) date) Aorta Diam: 2.6 cm unknown) (unknown) (no (unknown) (unknown) Great Vessels: The (units (unknown) date) aortic root is unknown) normal size. The ascending aorta is normal (unknown) (no (unknown) (unknown) IVSd: 1.0 cm (units (u nknown) date) unknown) (unknown) (no (unknown) (unknown) Interpretation (units (unknown) date) Summary unknown) (unknown) (no (unknown) (unknown) [facility] (units (unknown) date) unknown) (unknown) (no (unknown) (unknown) [place] (units (unkno wn) date) unknown) (unknown) (no (unknown) (unknown) LA A2 area: 15.5 (units (unknown) date) cm2 RA area: 8062 unknown) cm2 (unknown) (no (unknown) (unknown) LA A4 area: 12.3 (units (unknown) date) cm2 RA vol: unknown) [id number] ml (unknown) (no (unknown) (unknown) LA dimension: 3.1 (units (unknown) date) cm RA long axis: unknown) 3.6 cm (unknown) (no (unknown) (unknown) LA length (vol): (units (unknown) date) 4.8 cm RA : unknown) [id number] ml/m2 (unknown) (no (unknown) (unknown) LA vol index: 23.1 (units (unknown) date) ml/m2 unknown) (unknown) (no (unknown) (unknown) LA vol: 34.1 ml (units (unknown) date) unknown) (unknown) (no (unknown) (unknown) LV jules. (units (unkno wn) date) diameter/BSA unknown) (cm/m2): 2.4 (unknown) (no (unknown) (unknown) LV sys. (units (unkno wn) date) diameter/BSA unknown) (cm/m2): 2.0 (unknown) (no (unknown) (unknown) LVIDd: 3.6 cm LVOT (units (unknown) date) diam: 1.7 cm unknown) (unknown) (no (unknown) (unknown) LVIDs: 2.9 cm Ao (units (unknown) date) root diam: 2.7 cm unknown) (unknown) (no (unknown) (unknown) LVLd ap2: 7.1 cm (units (unknown) date) TAPSE_phl: 2.0 cm unknown) (unknown) (no (unknown) (unknown) LVLs ap2: 5.7 cm (units (unknown) date) unknown) (unknown) (no (unknown) (unknown) LVPWd: 0.80 cm (units (unknown) date) unknown) (unknown) (no (unknown) (unknown) Lat Peak E' Ed: (units (unknown) date) 5.9 cm/sec unknown) (unknown) (no (unknown) (unknown) Left Ventricle: (units (unknown) date) The left ventricle unknown) is normal in size and wall thickness. The (unknown) (no (unknown) (unknown) Loc: ECHO (units (unkn own) date) unknown) (unknown) (no (unknown) (unknown) MMode/2D (units (unkno wn) date) Measurements + unknown) Calculations (unknown) (no (unknown) (unknown) MV A max ed: (units ( unknown) date) 110.0 cm/sec TR max unknown) P.1 mmHg (unknown) (no (unknown) (unknown) MV E max ed: 90.8 (units (unknown) date) cm/sec TR max ed: unknown) 181.0 cm/sec (unknown) (no (unknown) (unknown) MV E/A: 0.83 PA V2 (units (unknown) date) max: 101.0 cm/sec unknown) (unknown) (no (unknown) (unknown) MV V2 VTI: 39.0 cm (units (unknown) date) unknown) (unknown) (no (unknown) (unknown) MV V2 mean: 70.2 (units (unknown) date) cm/sec SV(LVOT): unknown) 50.6 ml (unknown) (no (unknown) (unknown) MV dec time: 0.30 (units (unknown) date) sec unknown) (unknown) (no (unknown) (unknown) MV mean P.0 (units (unknown) date) mmHg unknown) (unknown) (no (unknown) (unknown) MVA(VTI): 1.3 cm2 (units (unknown) date) unknown) (unknown) (no (unknown) (unknown) Med Peak E' Ed: (units (unknown) date) 3.2 cm/sec PA V2 unknown) mean: 64.5 cm/sec (unknown) (no (unknown) (unknown) Mitral Valve: The (units (unknown) date) mitral valve is unknown) normal in structure but abnormal in (unknown) (no (unknown) (unknown) Ordering Provider: (units (unknown) date) Judah Rucker MD unknown) (unknown) (no (unknown) (unknown) Patient: (units (unkno wn) date) 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#: unknown) M000 (unknown) (no (unknown) (unknown) Pericardium/ (units (u nknown) date) Pleura There is no unknown) pericardial effusion. There is no pleural (unknown) (no (unknown) (unknown) Procedure: A (units (u nknown) date) two-dimensional unknown) transthoracic echocardiogram with color flow (unknown) (no (unknown) (unknown) Procedure: EC echo (units (unknown) date) doppler complete unknown) (unknown) (no (unknown) (unknown) Pulmonic Valve: (units (unknown) date) The pulmonic valve unknown) leaflets are thin and pliable; valve (unknown) (no (unknown) (unknown) RVD1 (basal): 3.4 (units (unknown) date) cm LVLs ap4: 5.6 cm unknown) (unknown) (no (unknown) (unknown) Reading (units (unkno wn) date) Physician:05:45 PM unknown) (unknown) (no (unknown) (unknown) Right Ventricle: (units (unknown) date) The right ventricle unknown) is normal in size and function. (unknown) (no (unknown) (unknown) Signed (units (unkno wn) date) unknown) (unknown) (no (unknown) (unknown) There is a trace (units (unknown) date) or physiologic unknown) amount of tricuspid regurgitation. The right (unknown) (no (unknown) (unknown) Tricuspid Valve: (units (unknown) date) The tricuspid valve unknown) is normal in structure and function. (unknown) (no (unknown) (unknown) (units (unknown) date) unknown) ___ (unknown) (no (unknown) (unknown) abnormality. (units (u nknown) date) Diastolic unknown) parameters suggest a relaxation abnormality of the left (unknown) (no (unknown) (unknown) an estimated right (units (unknown) date) atrial pressure of unknown) 3 mm Hg. (unknown) (no (unknown) (unknown) and Doppler was (units (unknown) date) performed. The unknown) study quality was technically adequate. The (unknown) (no (unknown) (unknown) effusion. (units (unkn own) date) unknown) (unknown) (no (unknown) (unknown) ejection fraction (units (unknown) date) is estimated to be unknown) 45-50%. There is mild global hypokinesis (unknown) (no (unknown) (unknown) exam. (units (unkno wn) date) unknown) (unknown) (no (unknown) (unknown) function (EF (units (u nknown) date) 45-50%). unknown) (unknown) (no (unknown) (unknown) function. The (units ( unknown) date) mitral valve unknown) leaflets are slightly calcified. There is mild (unknown) (no (unknown) (unknown) in size. The IVC (units (unknown) date) is of normal unknown) diameter and collapses greater than 50% with a (unknown) (no (unknown) (unknown) mitral (units (unkno wn) date) regurgitation. unknown) (unknown) (no (unknown) (unknown) motion is normal. (units (unknown) date) There is mild unknown) pulmonic regurgitation. (unknown) (no (unknown) (unknown) no Doppler (units (unk nown) date) evidence for an unknown) interatrial shunt. (unknown) (no (unknown) (unknown) of the left (units (un known) date) ventricle. Septal unknown) motion is consistent with conduction (unknown) (no (unknown) (unknown) patient was in (units (unknown) date) sinus rhythm with unknown) heart rates between 58-75 bpm during the (unknown) (no (unknown) (unknown) significant (units (un known) date) valvular aortic unknown) stenosis. There is trace aortic regurgitation. (unknown) (no (unknown) (unknown) sniff. This (units (un known) date) suggests a low unknown) right atrial pressure of 3 mm Hg. (unknown) (no (unknown) (unknown) study (units (unkno wn) date) unknown) (unknown) (no (unknown) (unknown) trileaflet. The (units (unknown) date) aortic valve opens unknown) well. There is no hemodynamically (unknown) (no (unknown) (unknown) ventricle, (units (unk nown) date) consistent with unknown) probable normal filling pressures. (unknown) (no (unknown) (unknown) ventricular (units (un known) date) systolic pressure unknown) is estimated to be at least 16.1 mmHg based on Social History date description facility 2022-09-07 00:00 Ex-smoker ([facility] Vital Signs date measurement value units 2022-09-07 00:00 BMI 20.2 kg/m2 2022-09-07 00:00 BP_diastolic 60 mmHg 2022-09-07 00:00 BP_systolic 128 mmHg 2022-09-07 00:00 height_metric 157.48 cm 2022-09-07 00:00 height_standard 62 in 2022-09-07 00:00 weight_metric 50.34 kg 2022-09-07 00:00 weight_standard 110.98 lb
[2022-10-05 22:15] LABS: BILIRUBIN,URINE NEGATIVE (NEGATIVE); GLUCOSE, URINE (UA) >=1000 mg/dL (NEGATIVE); KETONES,URINE (UA) NEGATIVE (NEGATIVE); LEUKOCYTE ESTERASE, URINE NEGATIVE (NEGATIVE); NITRITE,URINE NEGATIVE (NEGATIVE); OCCULT BLOOD,URINE NEGATIVE (NEGATIVE); PROTEIN,URINE NEGATIVE (NEGATIVE); UROBILINOGEN,URINE 0.2 (NORMAL) E.U./dL (NORMAL)
[2022-10-05 22:23] LABS: CLARITY,URINE CLEAR (CLEAR)
[2022-10-05 22:39] LABS: BASOPHILS # (AUTO) 0.1 10^3/uL (0.0-0.1); EOSINOPHILS # (AUTO) 0.2 10^3/uL (0.0-0.7); EOSINOPHILS % (AUTO) 3.1 %; HCT - HEMATOCRIT 36.6 % (37.0-47.0); HGB - HEMOGLOBIN 11.1 g/dL (12.0-16.0); LYMPHOCYTES # (AUTO) 1.3 10^3/uL (1.5-3.5); MEAN CORPUSCULAR HEMOGLOBIN 26.6 pg (27.0-31.0); MEAN CORPUSCULAR HGB CONC 30.3 g/dL (32.0-36.0); MEAN CORPUSCULAR VOLUME 87.8 fL (81.0-99.0); MEAN PLATELET VOLUME 9.3 fL (7.9-10.8); MONOCYTES # (AUTO) 0.4 10^3/uL (0.0-1.0); MONOCYTES % (AUTO) 7.4 %; NEUTROPHILS # (AUTO) 3.2 10^3/uL (1.5-6.6); NEUTROPHILS % (AUTO) 62.3 %; PLT - PLATELET COUNT 183 10^3/uL (130-450); RED BLOOD COUNT 4.17 10^6/uL (4.20-5.40); RED CELL DISTRIBUTION WIDTH 13.7 % (12.0-15.0); WHITE BLOOD COUNT 5.1 x10^3/uL (4.8-10.8)
[2022-10-05 22:51] LABS: ALBUMIN 4.3 g/dL (3.2-5.5); ALBUMIN/GLOBULIN RATIO 1.2 (1.0-2.2); BILIRUBIN,TOTAL 0.2 mg/dL (0.2-1.0); CALCIUM 9.1 mg/dL (8.5-10.3); CREATININE 1.2 mg/dL (0.4-1.0); POTASSIUM 3.7 mmol/L (3.5-5.0); TOTAL PROTEIN 7.8 g/dL (6.7-8.2)
--- NOTE | 2022-10-06 00:04 | ED Physician Documentation ---
History of Present Illness - Stated complaint Stated Complaint: DEHYDRATION - Chief complaint Chief Complaint: Neuro - History obtained from History obtained from: Patient, Family (partner) - Additonal information Additional information: 76-year-old woman presented with diarrhea over the past couple of days, lethargy and dizziness tonight, after a doctor's appointment today at which she felt fine. Patient's partner took her BP and it was 80s/50s so he brought her in. Patient asymptomatic at present. denies cp, soa, nausea, diaphoresis. Review of Systems Constitutional: denies: Fever Cardiac: denies: Chest pain / pressure, Palpitations Respiratory: denies: Dyspnea GI: reports: Diarrhea. 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 HEENT: Cataracts, Other - Present Medications Home Medications: Ambulatory Orders Medication Instructions Recorded Confirmed Alpha Lipoic Acid 50 mg PO DAILY 10/02/22 10/02/22 Aspirin [Aspirin EC] 81 mg PO DAILY 10/02/22 10/02/22 Clopidogrel Bisulfate [Plavix] 75 mg PO DAILY 10/02/22 10/02/22 Cyclosporine [Restasis Multidose] 5.5 ml OP DAILY 10/02/22 10/02/22 Empagliflozin [Jardiance] 10 mg PO DAILY 10/02/22 10/02/22 Fluticasone [Flonase] 1 sprays THOM DAILY 10/02/22 10/02/22 Insulin Glargine [Lantus Solostar] 10 unit SUBQ QDBREAKFAST 10/02/22 10/02/22 Isosorbide Mononitrate ER [Imdur] 30 mg PO DAILY 10/02/22 10/02/22 Lactobacillus Combination No.4 1 each PO DAILY 10/02/22 10/02/22 [Probiotic] Latanoprost 0.005% Ophth Drops 1 drops OPTH QPM 10/02/22 10/02/22 [Xalatan Ophth Drops] Metoprolol Succinate [Toprol Xl] 25 mg PO DAILY 10/02/22 10/02/22 Hopkins-3/Dha/Epa/Dpa/Fish Oil 1,050 mg PO DAILY 10/02/22 10/02/22 [Hopkins-3 2100 Softgel] Pravastatin [Pravachol] 80 mg PO DAILY 10/02/22 10/02/22 Sertraline [Zoloft] 100 mg PO DAILY 10/02/22 10/02/22 Ubrogepant [Ubrelvy] 50 mg PO DAILY 10/02/22 10/02/22 Vitamin B Complex 1 each PO DAILY 10/02/22 10/02/22 estradioL vaginal [Estrace vaginal] 42.5 gm VG 10/02/22 glipiZIDE [Glipizide] 10 mg PO BIDWM 10/02/22 10/02/22 traMADol [Ultram] 50 mg PO BID 10/02/22 10/02/22 - Allergies Allergies/Adverse Reactions: Allergies Allergy/AdvReac Type Severity Reaction Status Date / Time gabapentin Allergy Rash Verified 10/05/22 21:12 Iodinated Contrast Media Allergy Anaphylaxis Verified 10/05/22 21:12 [Iodinated Contrast- Oral and IV Dye] prednisone AdvReac Hives Verified 10/05/22 21:12 - Social History Does the pt smoke?: No Smoking Status: Never smoker Does the pt drink ETOH?: Yes Does the pt have substance abuse?: No - Immunizations Immunizations are current?: Yes - POLST Patient has POLST: No PD ED PE NORMAL - Vitals Vital signs reviewed: Yes - General General: Alert and oriented X 3, No acute distress, Well developed/nourished - HEENT HEENT: Atraumatic, PERRL, EOMI - Neck Neck: Supple, no meningeal sign - Cardiac Cardiac: RRR - Respiratory Respiratory: No respiratory distress, Clear bilaterally - Abdomen Abdomen: Non tender, Non distended - Back Back: No CVA TTP - Derm Derm: Normal color, Warm and dry - Neuro Neuro: No motor deficit, No sensory deficit - Psych Psych: Normal mood Results - Vitals Vitals: Vital Signs - 24 hr 10/05/22 21:13 Temperature 36.4 C L Heart Rate 63 Respiratory 17 Rate Blood Pressure 136/78 H O2 Saturation 99 Oxygen O2 Source Room air - EKG (time done) 0025 EKG releavant findings:: EKG personally interpreted by author of this note. Relevant findings are: Rate: Rate (enter#) (55) Rhythm: Sinus bradycardia [place]: Normal Intervals: Normal MI QRS: Normal Ischemia: Normal ST segments - Labs Labs: Laboratory Tests 10/05/22 10/05/22 10/05/22 22:07 22:32 22:32 WBC 5.1 RBC 4.17 L Hgb 11.1 L Hct 36.6 L MCV 87.8 MCH 26.6 L MCHC 30.3 L RDW 13.7 Plt Count 183 MPV 9.3 Neut # (Auto) 3.2 Lymph # (Auto) 1.3 L [place] # (Auto) 0.4 Eos # (Auto) 0.2 Baso # (Auto) 0.1 Absolute Nucleated RBC 0.00 Nucleated RBC % 0.0 Sodium 134 L Potassium 3.7 Chloride 100 L Carbon Dioxide 25 Anion Gap 9.0 BUN 27 H Creatinine 1.2 H Estimated GFR (MDRD) 44 L Glucose 139 H Calcium 9.1 Total Bilirubin 0.2 AST 22 ALT 12 Alkaline Phosphatase 82 Total Protein 7.8 Albumin 4.3 Globulin 3.5 Albumin/Globulin Ratio 1.2 Urine Color YELLOW Urine Clarity CLEAR Urine pH 6.0 Ur Specific [place] 1.010 Urine Protein NEGATIVE Urine Glucose (UA) >=1000 H Urine Ketones NEGATIVE Urine Occult Blood NEGATIVE Urine Nitrite NEGATIVE Urine Bilirubin NEGATIVE Urine Urobilinogen 0.2 (NORMAL) Ur Leukocyte Esterase NEGATIVE Ur Microscopic Review NOT INDICATED Urine Culture Comments NOT INDICATED PD Medical Decision Making - ED course ED course: 76yF p/w dizziness episode and low blood pressure at home. Her BP is normal here and she is tolerating PO fluids. encouraged continuing oral rehydration given her diarrhea. Labwork noncontributory aside from mild anemia which she states is chronic. ekg unchanged from previous. Advised restarting iron supplements which she has at home. return precautions given. Plan to f/u with pcp. Departure - Departure Disposition: 01 Home, Self Care Clinical Impression: Dizziness, Diarrhea Condition: Stable Instructions: ED Dizziness UKO Comments: You were seen in the emergency department for dizziness diarrhea. Please make sure that you drink at least 68 glasses of water daily and you can also supplement with pedialylte or adult electrolyte solution which will help with rehydrating you given your diarrhea. Follow up with your primary care provider. Return to the ED for new or worsening symptoms or if you have other concerns.
[2022-10-06 00:40] VITALS: BP 162/75
== END 2022-10-06 01:00 | disposition home or self-care (01) ==
LOC: ED 20:51
DX: R42 Dizziness and giddiness (principal); R19.7 Diarrhea, unspecified
CPT/HCPCS: 36415; 80053; 81001; 81003; 85025; 87086; 93005; 99283

== ENCOUNTER 2022-11-04 09:15 | Outpatient (CLI) | payer MEDICARE, OTHER ==
[2022-11-04 11:51] LABS: BASOPHILS % (AUTO) 0.9 %; EOSINOPHILS # (AUTO) 0.2 10^3/uL (0.0-0.7); EOSINOPHILS % (AUTO) 4.8 %; HCT - HEMATOCRIT 39.8 % (37.0-47.0); LYMPHOCYTES # (AUTO) 1.1 10^3/uL (1.5-3.5); LYMPHOCYTES % (AUTO) 24.5 %; MEAN CORPUSCULAR HEMOGLOBIN 27.3 pg (27.0-31.0); MEAN CORPUSCULAR HGB CONC 30.2 g/dL (32.0-36.0); MEAN CORPUSCULAR VOLUME 90.5 fL (81.0-99.0); MEAN PLATELET VOLUME 10.8 fL (7.9-10.8); MONOCYTES # (AUTO) 0.3 10^3/uL (0.0-1.0); MONOCYTES % (AUTO) 5.7 %; NEUTROPHILS # (AUTO) 2.9 10^3/uL (1.5-6.6); NEUTROPHILS % (AUTO) 63.9 %; PLT - PLATELET COUNT 181 10^3/uL (130-450); RED CELL DISTRIBUTION WIDTH 15.3 % (12.0-15.0); WHITE BLOOD COUNT 4.6 x10^3/uL (4.8-10.8)
[2022-11-04 12:11] LABS: ESTIMATED AVERAGE GLUCOSE 171 mg/dL (70-100); HEMOGLOBIN A1c% 7.6 % (4.27-6.07)
[2022-11-04 12:29] LABS: THYROID STIMULATING HORMONE 4.19 uIU/mL (0.34-5.60)
[2022-11-04 12:43] LABS: ALBUMIN 4.2 g/dL (3.2-5.5); ALBUMIN/GLOBULIN RATIO 1.4 (1.0-2.2); ALKALINE PHOSPHATASE 78 IU/L (42-121); ALT ALANINE AMINOTRANSFERASE 14 IU/L (10-60); AST ASPARTATE AMINOTRANSFERASE 27 IU/L (10-42); BILIRUBIN,TOTAL 0.4 mg/dL (0.2-1.0); BUN - BLOOD UREA NITROGEN 22 mg/dL (6-20); CARBON DIOXIDE - CO2 29 mmol/L (21-32); CHLORIDE 103 mmol/L (101-111); CHOL/HDL RATIO 2.9 (<4.4); CHOLESTEROL 162 mg/dL; CREATININE 1.1 mg/dL (0.4-1.0); GFR - MDRD 48 (>89); GLUCOSE 124 mg/dL (70-100); HDL CHOLESTEROL 55 mg/dL; LDL CHOLESTEROL,CALCULATED 79 mg/dL; LDL/HDL RATIO 1.4 (<4.4); POTASSIUM 4.4 mmol/L (3.5-5.0); SODIUM 137 mmol/L (135-145); TOTAL PROTEIN 7.3 g/dL (6.7-8.2); TRIGLYCERIDES 139 mg/dL; VLDL CHOLESTEROL 28 mg/dL
[2022-11-04 13:07] LABS: MICROALBUM/CREATININE RATIO,UR 18.6 ug/mg (<30.0); MICROALBUMIN,URINE 1.3 mg/dL (0-300.0)
== END 2022-11-04 09:16 | disposition home or self-care (01) ==
LOC: LAB.N 09:15
PROVIDERS: ATTEND Family Medicine
DX: F05 Delirium due to known physiological condition (principal); E11.65 Type 2 diabetes mellitus with hyperglycemia
CPT/HCPCS: 36415; 80053; 80061; 82043; 82570; 82607; 83036; 83721; 83921; 84443; 85025

== ENCOUNTER 2022-12-19 12:14 | Outpatient (CLI) | payer MEDICARE, OTHER ==
[~2022-12-19 12:14] MED LIST: GADOBUTROL 7.5 MMOL/7.5 ML VIAL ONE
[2022-12-19 12:50] LABS: CREATININE 1.1 mg/dL (0.4-1.0)
[2022-12-19] MEDS ORDERED: GADOBUTROL 7.5 MMOL/7.5 ML VIAL IVP ONE (14:37)
--- NOTE | 2022-12-21 10:34 | MRI Report ---
PROCEDURE: BRAIN W/WO INDICATIONS: DELIRIUM, MEMORY IMPAIRMENT CONTRAST: GADAVIST 7 ML TECHNIQUE: Noncontrast axial T1 spin echo, axial T2 fast spin echo, sagittal and axial FLAIR, coronal T2 fast sp in echo, axial gradient echo, axial diffusion and ADC through the brain. After the administration of contrast, axial and coronal T1 spin echo with fat saturation through the brain. COMPARISON: MRI dated 11/28/2019 FINDINGS: Image quality: Excellent. CSF spaces: Basal cisterns are patent. No extra-axial fluid collections. Ventricles are normal in size and shape. Brain: No midline shift. No intracranial bleeds or masses. No abnormal intracranial enhancement. There is cerebral volume loss for age. There is periventricular white matter chronic small vessel is chemic change. The brainstem appears normal. Diffusion-weighted images demonstrate no acute ischemi c insults. No chronic ischemic insults. Normal intravascular flow voids are present. Skull and face: Calvarial marrow is normal in signal. Orbits appear normal. Sinuses: Sinuses and mastoids appear clear. IMPRESSION: 1. Volume loss and small vessel ischemic disease. 2. No acute process. No recent infarct. Reviewed by: Delmar Wheatley MD on 12/21/2022 10:33 AM PDT Approved by: Delmar Wheatley MD on 12/21/2022 10:33 AM PDT Station ID: [id number]
== END 2022-12-19 12:15 | disposition home or self-care (01) ==
LOC: LAB 12:14
PROVIDERS: ATTEND Family Medicine
DX: F05 Delirium due to known physiological condition (principal); R44.3 Hallucinations, unspecified; R41.3 Other amnesia; G31.89 Other specified degenerative diseases of nervous system; I67.82 Cerebral ischemia
CPT/HCPCS: 36415; 70553; 82565; A9585

== ENCOUNTER 2023-03-02 16:26 | Outpatient (CLI) | payer MEDICARE, OTHER ==
[2023-03-02 17:12] LABS: CALCIUM 9.4 mg/dL (8.5-10.3); CREATININE 1.3 mg/dL (0.6-1.3); POTASSIUM 4.5 mmol/L (3.5-4.5)
[2023-03-02 17:26] LABS: CREATININE,URINE 67.5 mg/dL
[2023-03-02 17:27] LABS: MICROALBUMIN,URINE < 0.7 mg/dL
[2023-03-02 21:24] LABS: ESTIMATED AVERAGE GLUCOSE 166 mg/dL (70-100); HEMOGLOBIN A1c% 7.4 % (4.27-6.07)
== END 2023-03-02 16:27 | disposition home or self-care (01) ==
LOC: LAB 16:26
PROVIDERS: ATTEND Family Medicine
DX: E11.9 Type 2 diabetes mellitus without complications (principal); Z79.4 Long term (current) use of insulin
CPT/HCPCS: 36415; 80048; 82043; 82570; 83036

== ENCOUNTER 2023-06-24 11:40 | Outpatient (CLI) | payer MEDICARE, OTHER ==
[2023-06-24 17:42] LABS: BASOPHILS # (AUTO) 0.1 10^3/uL (0.0-0.1); BASOPHILS % (AUTO) 0.8 %; EOSINOPHILS # (AUTO) 0.2 10^3/uL (0.0-0.7); EOSINOPHILS % (AUTO) 2.1 %; HCT - HEMATOCRIT 37.7 % (37.0-47.0); HGB - HEMOGLOBIN 11.1 g/dL (12.0-16.0); LYMPHOCYTES # (AUTO) 1.3 10^3/uL (1.5-3.5); LYMPHOCYTES % (AUTO) 17.4 %; MEAN CORPUSCULAR HEMOGLOBIN 28.4 pg (27.0-31.0); MEAN CORPUSCULAR HGB CONC 29.4 g/dL (32.0-36.0); MEAN CORPUSCULAR VOLUME 96.4 fL (81.0-99.0); MEAN PLATELET VOLUME 10.5 fL (7.9-10.8); MONOCYTES # (AUTO) 0.4 10^3/uL (0.0-1.0); MONOCYTES % (AUTO) 5.6 %; NEUTROPHILS # (AUTO) 5.5 10^3/uL (1.5-6.6); NEUTROPHILS % (AUTO) 73.8 %; PLT - PLATELET COUNT 241 10^3/uL (130-450); RED BLOOD COUNT 3.91 10^6/uL (4.20-5.40); RED CELL DISTRIBUTION WIDTH 14.4 % (12.0-15.0); WHITE BLOOD COUNT 7.5 x10^3/uL (4.8-10.8)
[2023-06-24 18:00] LABS: BUN - BLOOD UREA NITROGEN 29 mg/dL (6-20); CALCIUM 9.6 mg/dL (8.5-10.3); CARBON DIOXIDE - CO2 25 mmol/L (21-32); CHLORIDE 103 mmol/L (101-111); CREATININE 1.4 mg/dL (0.6-1.3); GFR - MDRD 37 (>89); GLUCOSE 223 mg/dL (74-104); POTASSIUM 4.5 mmol/L (3.5-4.5); SODIUM 136 mmol/L (135-145)
[2023-06-24 21:20] LABS: ESTIMATED AVERAGE GLUCOSE 160 mg/dL (70-100); HEMOGLOBIN A1c% 7.2 % (4.27-6.07)
== END 2023-06-24 11:41 | disposition home or self-care (01) ==
LOC: LAB.N 11:40
PROVIDERS: ATTEND Family Medicine
DX: F01.50 Vascular dementia, unspecified severity, without behavioral disturbance, psychotic disturbance, mood disturbance, and anxiety (principal); E53.8 Deficiency of other specified B group vitamins; E11.9 Type 2 diabetes mellitus without complications; I25.10 Atherosclerotic heart disease of native coronary artery without angina pectoris; Z79.4 Long term (current) use of insulin
CPT/HCPCS: 36415; 80048; 82607; 83036; 85025